=== PATIENT | male | born 2000 | race Caucasian/White ===

== ENCOUNTER 2023-04-08 08:02 | Outpatient (OUT) | payer OTHER, SELFPAY ==
--- NOTE | 2023-04-08 08:11 | XR_ITS ---
The [address] [address] Patient Name: CITLALY ARELLANO MRN: [id number] date: 2000 Sex: M Assigned Patient Location: RAD Current Patient Location: RAD Accession/Order Number: [id number] Exam Date: 04/08/2023 08:15 Report Date: 04/08/2023 08:44 At the request of: JOAQUÍN LEMUS Procedure: XR foreign body eye EXAM: XR foreign body eye HISTORY: Foreign Body Eye COMPARISON: 04/25/2016 TECHNIQUE: 2 views of the skull/orbits to evaluate for foreign body. FINDINGS: No radiodense/metallic foreign bodies within the [id number]-ee-oeis, specifically within the orbits. No appreciable acute displaced facial bone fracture. XR/XR foreign body eye IMPRESSION: 1. No radiodense/metallic foreign body within the [id number]. Electronically authenticated by: MANI ENNIS Date: 04/08/2023 08:44
--- NOTE | 2023-04-08 08:12 | MR_ITS ---
The [address] [address] Patient Name: CITLALY ARELLANO MRN: [id number] date: 2000 Sex: M Assigned Patient Location: [facility] Current Patient Location: [facility] Accession/Order Number: [id number] Exam Date: 04/08/2023 08:45 Report Date: 04/08/2023 12:25 At the request of: JOAQUÍN LEMUS Procedure: MR knee RT wo con EXAM: MR knee RT wo con HISTORY: Internal Derangement Of Right Knee M23.91 generalized right knee pain for one month. No known injury. COMPARISON: Comparison is made to right knee radiographs dated 06/26/2021. TECHNIQUE: Multiplanar, multisequence imaging of the right knee was performed without administration of intravenous or intra-articular gadolinium contrast. FINDINGS: There is no acute fracture or dislocation of the right knee. Bone marrow signal is normal. There is mild chondrosis of the right patella predominantly involving the median ridge and adjacent lateral patellar facet. There is minimal chondral thinning with tiny chondral ulcerations at the median ridge and there is mild chondral heterogeneity at the lateral patellar facet. The medial meniscus demonstrates normal morphology and signal without tear. The lateral meniscus demonstrates normal morphology and signal without tear. The anterior and posterior cruciate ligaments are intact. The extensor mechanism, including the quadriceps and patellar tendons, is normal. The medial collateral ligament and the lateral collateral ligament complex are normal. There is a physiologic volume of joint fluid within the knee. There is no posterior joint extension/popliteal cyst. MR/MR knee RT wo con IMPRESSION: 1. No acute displaced fracture or dislocation of the right knee. 2. 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 3. Intact right knee menisci, cruciate ligaments, and collateral ligaments. 4. Physiologic volume of right knee joint fluid without popliteal cyst. Electronically authenticated by: ALBA GODDARD Date: 04/08/2023 12:25
== END 2023-04-08 08:03 | disposition home or self-care (01) ==
LOC: RAD 08:06
PROVIDERS: PCP Family Medicine; Visit Provider Personal Emergency Response Attendant
DX: M23.91 Unspecified internal derangement of right knee (principal); M71.21 Synovial cyst of popliteal space [Baker], right knee
CPT/HCPCS: 70030; 73721

== ENCOUNTER 2024-02-14 09:52 | Outpatient (OUT) | payer OTHER, SELFPAY ==
--- NOTE | 2024-02-14 | XR_ITS ---
The [address] [address] Patient Name: CITLALY ARELLANO MRN: [id number] date: 2000 Sex: M Assigned Patient Location: Current Patient Location: Accession/Order Number: [id number] Exam Date: 02/14/2024 09:55 Report Date: 02/16/2024 04:44 At the request of: CORINA PISANO Procedure: XR lumbar spine min 4V EXAMINATION: XR lumbar spine min 4V HISTORY: LUMBAR SPINE PAIN COMPARISON: No relevant comparison available. FINDINGS: BONES: No significant spondylosis, scoliosis, fracture, or visible bony lesion. No listhesis or change in alignment during flexion and extension. DISC SPACES: Mild narrowing L5-S1. PARASPINOUS: Negative. No paraspinous abnormality is seen. OTHER: Negative. XR/XR lumbar spine min 4V IMPRESSION: 1. L5-S1 mild disc space narrowing/degenerative changes. Electronically authenticated by: VIVIEN ASHRAF Date: 02/16/2024 04:44
== END 2024-02-14 09:53 | disposition home or self-care (01) ==
LOC: EC 09:52
PROVIDERS: PCP Family Medicine; Visit Provider Orthopaedic Surgery Orthopaedic Surgery of the Spine
DX: M54.50 Low back pain, unspecified (principal); M51.369 Other intervertebral disc degeneration, lumbar region without mention of lumbar back pain or lower extremity pain
CPT/HCPCS: 72110

== ENCOUNTER 2024-02-19 06:40 | Outpatient (OUT) | payer OTHER, SELFPAY ==
--- NOTE | 2024-02-19 06:43 | XR_ITS ---
[address] [address] Patient Name: CITLALY ARELLANO MRN: [id number] date: 2000 Sex: M Assigned Patient Location: RAD Current Patient Location: [facility] Accession/Order Number: [id number] Exam Date: 02/19/2024 06:50 Report Date: 02/19/2024 07:02 At the request of: CORINA PISANO Procedure: XR foreign body eye SCOTT EXAMINATION: XR foreign body eye SCOTT HISTORY: Screening for MRI COMPARISON: 04/08/2023 FINDINGS: ORBITS: Negative for a metallic foreign body. OTHER: Negative. XR/XR foreign body eye SCOTT IMPRESSION: No metallic foreign body in the orbits Electronically authenticated by: ALKA GRANADOS Date: 02/19/2024 07:02
--- NOTE | 2024-02-19 06:43 | MR_ITS ---
[address] [address] Patient Name: CITLALY ARELLANO MRN: [id number] date: 2000 Sex: M Assigned Patient Location: RAD Current Patient Location: [facility] Accession/Order Number: [id number] Exam Date: 02/19/2024 07:05 Report Date: 02/19/2024 08:15 At the request of: CORINA PISANO Procedure: MR lumbar spine wo con EXAMINATION: MR lumbar spine wo con HISTORY: degeneration of intervertebral disc of lumbar region COMPARISON: No relevant comparison available. TECHNIQUE: A variety of imaging planes and parameters were utilized for visualization of suspected pathology. FINDINGS: For the purposes of numbering, sagittal T2 image # 8 extends from the T12 vertebral body superiorly to the S2 level inferiorly. PARASPINAL AREA: Normal with no visible mass. BONES: Normal alignment with no acute fracture or spondylolisthesis. No bone edema or Modic changes. CORD/CAUDA EQUINA: Normal caliber, contour, and signal intensity. DISC LEVELS: 12-L1: No significant disc/facet abnormality, spinal stenosis, or foraminal stenosis. L1-L2: No significant disc/facet abnormality, spinal stenosis, or foraminal stenosis. L2-L3: No significant disc/facet abnormality, spinal stenosis, or foraminal stenosis. L3-L4: Disc desiccation. Right paracentral disc herniation the protrusion type with annular tear extending 3.3 mm best seen on axial image 19 . No central or foraminal stenosis L4-L5: Moderate disc desiccation. Mild diffuse disc bulge. No central or foraminal stenosis L5-S1: Disc space narrowing. Moderate disc/osteophyte complex. No central or foraminal stenosis MR/MR lumbar spine wo con IMPRESSION: Discogenic changes of the lower lumbar spine most significant at L3-L4 where annular tear is observed with small disc herniation the protrusion type No central or foraminal stenosis Electronically authenticated by: ALKA GRANADOS Date: 02/19/2024 08:15
--- OUTSIDE RECORDS SUMMARY | 2024-02-19 06:43 | XMS_ITS | CCD ---
Author Organization [facility] Care Team Providers Care 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 Name Role Phone Hannah Massey Unavailable Julienne Fine Unavailable MD Evelin Haque Primary Care Provider MD Darnell Goss Attending Provider Darnell Goss Unavailable Darnell Goss Attending Unavailable Darnell Goss Admitting Unavailable Evelin Haque Primary Care Unavailable DARNELL GOSS Admitting Unavailable DARNELL GOSS Attending Unavailable SHABNAM, DR EVELIN Kim Primary Care Unavailable SHABNAM, DR EVELIN Kim Admitting Unavailable HAQUE, DR EVELIN Kim Attending Unavailable SHABNAM, DR EVELIN Kim Primary Care Unavailable SHABNAM, DR EVELIN Kim Consulting Unavailable JULIANO ROONEY Admitting Unavailable JULIANO ROONEY Attending Unavailable SHABNAM, DR EVELIN Kim Primary Care Unavailable ANDRIY, DR VIVIEN Maguire Consulting Unavailable JULIANO ROONEY Consulting Unavailable Evelin Haque Unavailable Mercedes Call Unavailable Evelin Haque MD Primary Care Provider JOAQUÍN LEMUS Attending Unavailable JOAQUÍN LEMUS Referring Unavailable JR. GERMAIN GEORGE C Attending Unavaila JOAQUÍN Beckham Attending Unavailable EVELIN HAQUE Primary Care Physician [phone] Pedrito Oneill Attending Unavailable Allergies Allergy Classification Reported Allergen(s) Allergy Type Date of Onset Reaction(s) Facility (13 sources) Corticosteroids Propensity to adverse reactions fatigue [place] Other (4 sources) Amoxicillin Drug Allergy 12-30-19 Unknown [facility] Other (4 sources) Pseudoephedrine Drug Allergy Unknown [facility] Other (4 sources) Allergies Reconciled Propensity to adverse reactions Unknown [facility] Other (4 sources) patient allergy list reviewed by nurse or physicia Propensity to adverse reactions 06-01-19 Comment:Done [place] Other (2 sources) Prednisone Propensity to adverse reactions 04-01-19 [facility] Healthcare (1 source) No Known Medication Allergies; Translations: [No Known Medication Allergies] Propensity to adverse reactions (disorder) [facility] Repository Medications Current Medications Medication Drug Class(es) Dates Sig (Normalized) Sig (Original) amoxicillin 500 mg oral capsule (1 source) Penicillin-class Antibacterial take 1 capsule by mouth every eight hours Amoxicillin 500 MG 1 capsule Orally every 8 hrs for 7 days Active azithromycin 250 mg oral tablet (7 sources) Macrolide Antimicrobial Start: 03-21-2022 Azithromycin 250 MG as directed Orally 2 tabs po today, then 1 tab daily x 4 more days for 5 Apr, Active betamethasone 0.5 mg/ml / clotrimazole 10 mg/ml topical cream (4 sources) Azole Antifungal, Corticosteroid Start: 03-09-2022 Clotrimazole-Betame thasone 1-0.05 % 1 application Externally Three time a day for 7 days Feb, Active cyclobenzaprine hydrochloride 10 mg oral tablet (2 sources) Muscle Relaxant Start: 01-27-2024 take 1 tablet by mouth three times daily Cyclobenzaprine 10 mg tablet Active 10 MG PO Three times daily January 27, 2024 12:00am Start: 01-22-2024 take 1 tablet by rosemary th three times daily as needed for muscle spasms cyclobenzaprine 10 mg Tab 10 mg = 1 tab(s), Oral, TID, PRN for spasm, # 30 tab(s), Refills(s) 0, Pharmacy: [facility]/pharmacy #[id number], 20.7, cm, 01/22/24 10:20:00 EST, Height/Length Dosing, 117, kg, 01/22/24 10:20:00 EST, Weight Dosing Start Date: 01/22/24 Status: Ordered ibuprofen 200 mg oral tablet (7 sources) Nonsteroidal Anti-inflammatory Drug take 1 tablet by mouth three times daily at mealtime as needed Ibuprofen 200 MG 1 tablet with food or milk as needed Orally Three times a day Active naproxen 500 mg oral tablet (2 sources) Nonsteroidal Anti-inflammatory Drug Start: 01-27-20 take 1 tablet by mouth twice daily Naproxen 500 mg tablet Active 500 MG PO Twice daily January 27, 2024 12:00am Start: 01-22-2024 take 1 tablet by rosemary th twice daily Naprosyn 500 mg Tab 500 mg = 1 tab(s), Oral, BID, # 20 tab(s), Refills(s) 0, Pharmacy: [facility]/pharmacy #[id number], 20.7, cm, 01/22/24 10:20:00 EST, Height/Length Dosing, 117, kg, 01/22/24 10:20:00 EST, Weight Dosing Start Date: 01/22/24 Status: Ordered Completed/Discontinued Medications Medication Drug Class(es) Dates Sig (Normalized) Sig (Original) amoxicillin 875 mg / clavulanate 125 mg oral tablet (3 sources) Penicillin-class Antibacterial Start: 09-26-2023 End: 01-27-2024 take 1 tablet by mouth every twelve hours Amoxicillin-Pot Clavulanate 875-125 mg tablet Discontinued 1 TAB PO Every 12 hours 14 7 September 25, 2023 11:00pm January 27, 2024 10:55am Start: 02-25-2023 take 1 tablet by rosemary th every twelve hours Amoxicillin-Pot Clavulanate 875-125 MG 1 tablet Orally every 12 hrs for 10 day(s) Feb, Active meloxicam 15 mg oral tablet (6 sources) Nonsteroidal Anti-inflammatory Drug Start: 08-20-2023 End: 09-26-2023 take 1 tablet by mouth once daily Meloxicam 15 mg tablet Discontinued 15 MG PO Daily August 19, 2023 11:00pm September 26, 2023 3:41pm Start: 03-25-2023 End: 04-22-2023 take 1 tablet by mouth once daily meloxicam (Mobic) 15 MG tablet TAKE 1 TABLET BY MOUTH EVERY DAY FOR 30 DAYS 0 03/25/2023 04/22/2023 Discontinued 1 ml methylPREDNISolone acetate 40 mg/ml injection (9 sources) Corticosteroid Start: 04-22-2023 End: 04-22-2023 methylPREDNISolone acetate (DEPO-Medrol) injection 40 mg Start: 11-18-2022 methylPREDNISo lone 4 MG as directed Orally for daily dose take half with breakfast, half with dinner for 6 days Nov, Active Start: 07-21-2021 Medrol (Talon) 4 MG as directed Orally for daily dose take half with breakfast half with dinner for 6 days July, Not-Taking Medrol (Talon) Act yimi predniSONE 20 mg oral tablet (12 sources) Start: 08-19-2023 End: 09-26-2023 take 2 tablets by mouth once daily Prednisone 20 mg tablet Discontinued 40 MG PO Daily 6 August 18, 2023 11:00pm September 26, 2023 3:35pm Start: 08-19-2023 End: 09-26-2023 take 40 mg by mouth once daily Prednisone Discontinued 40 MG PO Daily 6 August 19, 2023 12:00am September 26, 2023 4:35pm Start: 08-18-2023 End: 08-20-2023 take 1 tablet by mouth once daily Prednisone 20 mg tablet Discontinued 20 MG PO Daily 3 August 17, 2023 11:00pm August 20, 2023 7:16am allergy is fatigue per patient Start: 03-14-2022 take 2 tablets by mo [facility] once daily at mealtime predniSONE 20 MG 2 tablets with food or milk Orally Once a day for 5 days Mar, Active Start: 09-25-2021 take 1 tablet by rosemary every twelve hours predniSONE 20 MG 1 tablet Orally 2 times a day for 5 day(s) Sep, Active silver sulfADIAZINE 10 mg/ml topical cream (2 sources) Sulfonamide Antibacterial Start: 09-09-2021 Silvadene 1 % 1 application Externally Once a day for 7 days Sep, Not-Taking triamcinolone acetonide 40 mg/ml injectable suspension (20 sources) Corticosteroid Start: 05-04-2022 take 1 spray(s) nasal route once daily Nasacort Allergy 24HR 55 MCG/ACT 1 spray in each nostril Nasally Once a day for 30 days Apr, Active Start: 09-25-2021 Kenalog-40 Nov, 40 mg Start: 11-03-2020 KENALOG - 10 m g Oct, 40 mg take 1 spray(s) nasa l route once daily as needed Nasacort Allergy 24HR 55 MCG/ACT 1 spray in each nostril Nasally Once a day for 30 days PRN Active Problems Active Problems Problem Classification Problem Date Documented Date Episodic/Chronic Allergic reactions (12 sources) Allergic contact dermatitis due to plants, except food; Translations: [Allergic contact dermatitis due to plants, except food] Onset: 09-25-2021 Resolved: 09-25-2021 Episodic Anxiety disorders (4 sources) Anxiety state; Translations: [Anxiety state, unspecified] Onset: 07-07-2015 Chronic Attention-deficit, conduct, and disruptive behavior disorders (4 sources) Attention deficit hyperactivity disorder; Translations: [Attention-deficit hyperactivity disorder, unspecified type] Onset: 12-29-2012 Chronic Joint disorders and dislocations; trauma-related (2 sources) Derangement of right knee; Translations: [Unspecified internal derangement of right knee] 04-22-2023 Chronic Malaise and fatigue (8 sources) Other fatigue; Translations: [Fatigue] Onset: 06-20-2021 Episodic Nonspecific chest pain (4 sources) Chest pain; Translations: [Chest pain, unspecified] Episodic Open wounds of extremities (1 source) Puncture wound without foreign body, left foot, initial encounter; Translations: [Open wound of foot except toe(s) alone, without mention of complication] 09-26-2023 Episodic Other congenital anomalies (4 sources) Pectus carinatum; Translations: [Pectus carinatum] Onset: 05-25-2013 Chronic Other diseases of veins and lymphatics (13 sources) Compression of vein; Translations: [Compression of vein] Episodic Other ear and sense organ disorders (4 sources) Impacted cerumen; Translations: [Impacted cerumen, left ear] Episodic Other injuries and conditions due to external causes (1 source) Traumatic AND/OR non-traumatic injury; Translations: [Other injury of unspecified body region, initial encounter] Onset: 01-22-2024 Episodic Other nervous system disorders (13 sources) Chronic pain; Translations: [Other chronic pain] Chronic Other nervous system disorders (2 sources) Other chronic pain Onset: 11-27-2021 Resolved: 11-27-2021 Chronic Other non-traumatic joint disorders (4 sources) Hand joint pain; Translations: [Pain in joints of left hand] Episodic Other non-traumatic joint disorders (1 source) Pain in right knee Episodic Other nutritional; endocrine; and metabolic disorders (4 sources) Body mass index 25-29 - overweight; Translations: [Body mass index (BMI) 25.0-25.9, adult] Episodic Other screening for suspected conditions (not mental disorders or infectious disease) (4 sources) Thyroid function tests abnormal; Translations: [Abnormal results of thyroid function studies] Episodic Other skin disorders (1 source) Rash and other nonspecific skin eruption Episodic Other skin disorders (4 sources) Vesicular eczema of hands and/or feet; Translations: [Dyshidrosis [pompholyx]] Episodic Other upper respiratory infections (4 sources) Chronic sinusitis; Translations: [Chronic sinusitis, unspecified] Chronic Other upper respiratory infections (13 sources) Acute pharyngitis, unspecified; Translations: [Acute maxillary sinusitis, unspecified] Onset: 01-21-2015 Episodic Residual codes; unclassified (4 sources) Symptom: generalized; Translations: [Other general symptoms and signs] Episodic Residual codes; unclassified (4 sources) Body mass index 20-24 - normal; Translations: [Body mass index (BMI) 23.0-23.9, adult] Episodic Spondylosis; intervertebral disc disorders; other back problems (20 sources) Lumbosacral spondylosis; Translations: [Spondylosis without myelopathy or radiculopathy, lumbosacral region] Onset: 11-27-2021 Resolved: 11-27-2021 Chronic Spondylosis; intervertebral disc disorders; other back problems (11 sources) Radiculopathy, lumbar region; Translations: [Thoracic and lumbosacral neuritis] Onset: 07-22-2018 Resolved: 11-27-2021 Episodic Substance-related disorders (13 sources) Tobacco user; Translations: [Nicotine dependence, unspecified, uncomplicated] Chronic Unclassified (3 sources) LOW BACK PAIN, UNSPECIFIED; Translations: [LOW BACK PAIN, UNSPECIFIED] Onset: 11-29-2021 Past or Other Problems Problem Classification Problem Date Documented Da te Episodic/Chronic [place] (1 source) Corrosion of unspecified body region, unspecified degree Onset: 09-09-2021 Resolved: 09-09-2021 Episodic Cardiac dysrhythmias (4 sources) Palpitations; Translations: [Palpitations] Onset: 05-31-2014 Episodic Other connective tissue disease (4 sources) Pain in forearm; Translations: [Pain in joint, forearm] Onset: 01-09-2016 Episodic Other connective tissue disease (4 sources) Ganglion cyst; Translations: [Ganglion, unspecified site] Onset: 07-07-2015 Episodic Other non-traumatic joint disorders (4 sources) Arthralgia of the lower leg; Translations: [Pain in joint, lower leg] Onset: 04-05-2016 Episodic Sprains and strains (5 sources) Sprain of unspecified site of right knee, initial encounter; Translations: [Sprain of unspecified ligament of right ankle, initial encounter] Onset: 06-26-2021 Episodic Superficial injury; contusion (2 sources) Contusion of right knee, initial encounter; Translations: [Contusion of right ankle, initial encounter] Onset: 06-28-2021 Episodic Syncope (4 sources) Syncope and collapse; Translations: [Syncope and collapse] Onset: 07-28-2013 Episodic Unclassified (1 source) LOW BACK PAIN, UNSPECIFIED; Translations: [LOW BACK PAIN, UNSPECIFIED] Onset: 11-29-2021 Unclassified (4 sources) Need for prophylactic vaccination and inoculation against unspecified single bacterial disease; Translations: [Need for prophylactic vaccination and inoculation against unspecified single bacterial disease] Onset: 08-25-2015 Results Test Name Value Interpretation Reference Range Facility CT Spine Lumbar w/o Contrast on 01-22-2024 CT Spine Lumbar w/o Contrast Exam Date/Time: 01/22/2024 10:47 EST Reason for Exam: Radiculopathy Report IMPRESSION: MODERATE LEFT NEURAL FORAMINAL NARROWING AT L5-S1. OTHERWISE, ESSENTIALLY NEGATIVE LUMBAR SPINE CT. EXAM: CT Spine Lumbar w/o Contrast DATE: 01/22/2024 10:37 AM CLINICAL HISTORY: Radiculopathy. COMPARISON: None available. TECHNIQUE: Spiral imaging was obtained of the lumbar spine, with routine multiplanar reconstructions performed. All CT scans at this facility use dose modulation, iterative reconstruction, and/or weight based dosing when appropriate to reduce radiation dose to as low as reasonably achievable. FINDINGS: Moderate posterolateral endplate osteophytosis on the left at L5-S1 results in moderate left neural foraminal narrowing. Minimal posterolateral endplate osteophytosis on the right L3-4, with minimal lateral recess narrowing. There is no central spinal stenosis, other neural foraminal narrowing, sizable disc herniations, compression, fracture, significant disc space narrowing, subluxation, worrisome bone destruction, or other significant degenerative changes identified. The sacroiliac joints are unremarkable. Ordering Provider: Pedrito Oneill FINAL REPORT Dictated: 01/22/2024 11:12 am Amilcar Perdomo MD Signed (Electronic Signature): 01/22/2024 11:12 am Signed by: Amilcar Perdomo MD Transcribed by: SAMANTHA Technologist: MARYJANE Gurrola [facility] ED Clinical Summaryon 2023 ED Clinical Summary ED Clinical Summary [place] [id number] ED Clinical Summary Person Information Name: MOODY ARELLANO [facility] Age: 23 Years : 2000 Sex: Male Language: Cypriot PCP: EVELIN HAQUE MD Marital Status: Visit Id: Visit Reason: Back pain; BACK PAIN Speciality: Acuity: 4 Enc Type: Emergency Med Service: Emergency Arrival: 01/22/2024 10:17:26 Discharge: 01/22/2024 12:48:37 LOS: 000 02:31 Checkin: 01/22/2024 10:17:26 Checkout: 01/22/2024 12:48:37 Dispo Type: Home (Routine DC) EVENTS: Event Name Event Status Request Date/Time Start Date/Time Complete Date/Time Arrive Complete 01/22/2024 10:17:26 01/22/2024 10:17:26 01/22/2024 10:17:26 Document Home Meds Request 01/22/2024 10:17:26 Triage Complete 01/22/2024 10:17:26 01/22/2024 10:20:33 01/22/2024 10:20:33 Bed Assign Complete 01/22/2024 10:17:26 01/22/2024 10:17:26 01/22/2024 10:17:26 Dr Exam Complete 01/22/2024 10:17:26 01/22/2024 10:22:02 01/22/2024 10:22:02 RN Exam Complete 01/22/2024 10:17:26 01/22/2024 10:56:49 01/22/2024 10:56:49 Registration Complete 01/22/2024 10:21:41 01/22/2024 10:21:41 01/22/2024 10:21:41 Reg Complete Request 01/22/2024 10:21:41 Reg Bed Request Complete 01/22/2024 10:21:41 01/22/2024 10:21:41 01/22/2024 10:21:41 Registration Complete 01/22/2024 10:22:02 01/22/2024 10:27:17 01/22/2024 10:27:17 Dr Exam Complete 01/22/2024 10:22:04 01/22/2024 10:22:04 01/22/2024 10:22:04 Meds Admin Complete 01/22/2024 10:32:46 01/22/2024 10:49:36 CT Complete 01/22/2024 10:32:46 01/22/2024 10:37:25 01/22/2024 10:47:19 Meds Admin Complete 01/22/2024 11:29:12 01/22/2024 11:34:14 Discharge Complete 01/22/2024 12:36:40 01/22/2024 12:48:42 01/22/2024 12:48:42 Transfer Complete 01/22/2024 12:48:42 01/22/2024 12:48:42 01/22/2024 12:48:42 ADDRESS: [address] [place] [id number] PHYS DOC NOTES: MEDICAL INFORMATION: Prescriptions Given: New Medications [id number], [address] [place], [place] [id number], [phone] cyclobenzaprine (cyclobenzaprine 10 mg Tab) 1 Tablets By Mouth 3 times a day as needed for spasm. Refills: 0. naproxen (Naprosyn 500 mg Tab) 1 Tablets By Mouth 2 times a day. Refills: 0. PATIENT EDUCATION INFORMATION: Instructions: Muscle Strain; Acute Back Pain, Adult Follow up: With: Address: When: EVELIN HAQUE [facility] [place] [id number] [employer] (1) In 3 days 01/25/2024 Comments: Return to the emergency room if your pain gets worse, you develop bowel or bladder incontinence, numbness/tingling in the saddle/groin area, weakness in your leg or any new symptoms. DIAGNOSIS: 1:Lower back pain; 2:Muscle strain Normal [facility] ED Note-Physicianon 01-22-20 ED Note-Physician ED Note-Physician Basic Information Time Seen: Pedrito Oneill M.D. 01/22/2024 10:22 Chief Complaint stepped wrong, felt tweak in lower back. has had problems with same spot in past. no injury. 10mcg fentanyl per ems History of Present Illness The patient is a 23-year-old male who presented to the emergency room via EMS for lower back pain. The patient states at work he was pushing a brandi into the ground 4 feet down with his arms. The patient states he was bent down and when he came up he felt a sharp pain on his lower back. The patient states when he tried to stand the pain was shooting down to both legs. The patient denies any weakness in his leg. He states EMS gave him fentanyl. The pain is slightly better. The patient denies any bowel or bladder incontinence. He denies any numbness or tingling in the saddle/groin area. The patient denies any other associated symptoms. Review of Systems Additional ROS info: Except as noted in the above Review of Systems and in the History of Present Illness all other systems have been reviewed and are negative or noncontributory. Physical Exam Vitals & Measurements T: 37 ???C(Oral) HR: 62(Monitored) RR: 18 BP: 115/67 SpO2: 97% HT: 20.66 cm WT: 117 kg General: alert, no acute distress Skin: warm, dry, Head: no trauma, normocephalic Neck: Trachea midline, no tenderness, supple Eye: normal conjunctiva, sclera clear, Cardiovascular: regular rate and rhythm, Respiratory: Lungs CTA, respirations non labored, breath sounds equal, Gastrointestinal: soft, non distended, no tenderness, no guarding, Back: Mild tenderness throughout the lumbar sacral region including vertebral point tenderness on the lumbosacral region, limited ROM due to pain, patellar reflexes equal bilateral, straight leg raising negative bilateral Extremities: no deformity, no trauma Neurological: Alert and oriented, motor strength equal & normal bilaterally, sensation equal & normal bilaterally, speech normal, no focal neuro deficits Psychiatric: cooperative, affect appropriate for age, Medical Decision Making MEDICAL DECISION MAKING Number and Complexity of Problems Differential Diagnosis: [] [facility] Data External documents reviewed: [] My EKG interpretation: [] My CT interpretation: [] My X-ray interpretation: [] My Ultrasound interpretation: [] Decision rules/scores evaluated: [] Discussed with: [] Treatment and Disposition ED Course: The patient presented with lower back pain after pushing a brandi into the ground. More likely he sprained the muscles of lower back. The patient states when he stands up his pain shoots down to the legs. The patient has no signs or symptoms of cauda equina syndrome. He has generalized tenderness of the lumbar sacral region including the midline tenderness. CT of the lumbar spine shows osteophytosis at L5-S1 level causing moderate left neural foraminal narrowing. There is no central canal stenosis disc herniation compression fracture or anything else acute. The patient was given morphine and he continues to be in pain. He was given Dilaudid and his pain improved. The patient was able to ambulate and he feels comfortable going home. The patient does not want to file this injury is a Workmen's Comp. Will discharge patient home with prescription for Naprosyn and muscle relaxant. The patient refused narcotic medication. He will follow-up with his primary care. The patient was instructed to return to the emergency room if his pain gets worse, bowel or bladder incontinence, saddle paresthesia, weakness in his legs or any new symptoms. Shared decision making: [] Code status: [] Assessment/Plan 1. Lower back pain (M54.50: Low back pain, unspecified) 2. Muscle strain (T14.8XXA: Other injury of unspecified body region, initial encounter) Orders: cyclobenzaprine, 10 mg = 1 tab(s), Oral, TID, PRN for spasm, # 30 tab(s), Refills(s) 0, Pharmacy: [facility]/pharmacy #[id number], 20.7, cm, 01/22/24 10:20:00 EST, Height/Length Dosing, 117, kg, 01/22/24 10:20:00 EST, Weight Dosing HYDROmorphone, 0.5 mg = 0.5 mL, Injection, IV Push, Once, Stop date 01/22/24 11:29:00 EST, STAT, Start date 01/22/24 11:29:00 EST, 01/22/24 11:29:00 EST morphine, 4 mg = 1 mL, Injection, IV Push, Once, Stop date 01/22/24 10:31:00 EST, STAT, Start date 01/22/24 10:31:00 EST, 01/22/24 10:31:00 EST naproxen, 500 mg = 1 tab(s), Oral, BID, # 20 tab(s), Refills(s) 0, Pharmacy: [facility]/pharmacy #[id number], 20.7, cm, 01/22/24 10:20:00 EST, Height/Length Dosing, 117, kg, 01/22/24 10:20:00 EST, Weight Dosing orphenadrine, 60 mg = 2 mL, Injection, IV Push, Once, Stop date 01/22/24 10:31:00 EST, STAT, Start date 01/22/24 10:31:00 EST, 01/22/24 10:31:[address] Spine Lumbar w/o Contrast Medications Administered Given Dilaudid 1 mg/mL injectable solution, 0.5 mg, IV Push morphine 4 mg/mL Inj, 4 mg, IV Push orphenadrine 30 mg/mL Inj, 60 mg, IV Push Disposition Plan Patient Discharge Condition Stab (more content not included)... Normal [facility] Comment on above: Result Comment: Elec tronically Signed By: Pedrito Oneill M.D..sharif\Date and Time Signed: 01/22/24 12:41 EST ED Patient Summaryon 024 ED Patient Summary ED Patient Summary [place] [id number] Patient Discharge Instructions Person Information Name: MOODY ARELLANO Age: 23 Years Arrival Date: 01/22/2024 10:17:26 Discharge Diagnosis: 1:Lower back pain; 2:Muscle strain Primary Care Physician: EVELIN HAQUE MD Provider Information Primary Provider: Pderito Oneill M.D. Advanced Scalehouse Attendant:None The exam and treatment you received in the Emergency Department were for an urgent problem and are not intended as complete care. It is important that you follow up with a doctor, nurse practitioner, or physician???s photographer's assistant for ongoing care. If your symptoms become worse or you do not improve as expected and you are unable to reach your usual health care provider, you should return to the Emergency Department. We are available 24 hours a day. MOODY ARELLANO has been given the following list of patient education materials, prescriptions and follow-up instructions: Follow-up Instructions: With: Address: When: EVELIN HAQUE [address] [place], [place] [address] [facility] () In 3 days 01/25/2024 Comments: Return to the emergency room if your pain gets worse, you develop bowel or bladder incontinence, numbness/tingling in the saddle/groin area, weakness in your leg or any new symptoms. In the event that this physician does not participate in your insurance network, please consult with your insurance company to find a nearby participating provider. Patient Education Materials: Muscle Strain; Acute Back Pain, Adult A MESSAGE TO ALL PATIENTS REGARDING OPIOIDS PRESCRIPTION OPIOIDS: WHAT YOU NEED TO KNOW Prescription opioids can be used to help relieve [id number] pain and are often prescribed following a surgery or injury, or for certain health conditions. These medications can be an important part of the treatment but also come with serious risks. It is important to work with your healthcare provider to make sure you are getting the safest, most effective care. WHAT ARE THE RISKS AND SIDE EFFECTS OF OPIOID USE? Prescription opioids carry serious risks of addiction and overdose, especially with prolonged use. An opioid overdose, often marked by slowed breathing, can cause sudden . The use of prescription opioids can have a number of side effects as well, even when taken as directed: ??? Tolerance???meaning you might need to take more of the medication for the same pain relief ??? Physical dependence???meaning you have symptoms of withdrawal when a medication is stopped ??? Increased sensitivity to pain ??? Constipation ??? Nausea, vomiting, and dry mouth ??? Sleepiness and dizziness ??? Confusion ??? Depression ??? Low levels of testosterone that can result in lower sex drive, energy, and strength ??? Itching and sweating RISKS ARE GREATER WITH: ??? History of drug misuse, substance use disorder, or overdose ??? Mental health conditions (such as depression or anxiety) ??? Sleep apnea ??? Older age (65 years and older) ??? Avoid alcohol while taking prescription opioids. Also, unless specifically advised by your health care provider, medications to avoid include: ??? Benzodiazepines (such as Xanax or Valium) ??? Muscle relaxants (such as Soma or Flexeril) ??? Hypnotics (such as Ambien or Lunesta) ??? Other prescription opioids KNOW YOUR OPTIONS Talk to your health care provider about ways to manage your pain that don???t involve prescription opioids. Some of these options may actually work better and have fewer risks and side effects. Options may include: ??? Pain relievers such as acetaminophen, ibuprofen, and naproxen ??? Some medication that are also used for depression or seizures ??? Physical therapy and exercise ??? Cognitive behavioral therapy, a psychological, goal-directed approach, in which patients learn how to modify physical, behavioral, and emotional triggers of pain and stress. IF YOU ARE PRESCRIBED OPIOIDS FOR PAIN: ??? Never take opioids in greater amounts or more often than prescribed. ??? Follow up with your primary health care provider. o Work together to create a plan on how to manage your pain. o Talk about ways to help manage your pain that don???t involve prescription opioids. o Talk about any and all concerns and side effects. ??? Help prevent misuse and abuse o Never sell or share prescription opioids. o Never use another person???s prescription opioids. ??? Store prescription opioids in a secure place and out of reach of others (this may include visitors, children, friends, and family). ??? Safely dispose of unused prescription opioids: Find your community drug take-back program or your pharmacy mail-back program, or flush them down the toilet, following guidance from the Food and Drug Administration (www.fda.gov/Dr (more content not included)... Normal [facility] Pre-Arrival Noteon Pre-Arrival Note Pre-Arrival Note Pre-Arrival Summary Name: , amita Current Date: 01/22/2024 10:18:03 EST Gender: Male Date of : Age: 23 Pre-Arrival Type: EMS ETA: 01/22/2024 10:37:00 EST Primary Care Physician: Presenting Problem: back pain Pre-Arrival User: Maynor Charlton Referring Source: Location: [place] Completion Date/Time: 01/22/2024 10:07:00 [facility] Emergency Department Pre-Hospital Report Form Vital Signs: Pre-Hospital Report: Treatment in Route: Response to Treatment: Misc. Issues: Normal [facility] No Panel Informationon 04-22 Chela Infante 04/24/2023 11:56 AM L Inj/Asp: R knee on 04/22/2023 10:18 AM Indications: pain Details: 21 G needle, anterolateral approach Medications: 40 mg methylPREDNISolone acetate 40 MG/ML Outcome: tolerated well, no immediate complications E UTILIZING ASEPTIC TECHNIQUE PT GIVEN INJECTION IN RIGHT KNEE, NEUROVASC INTACT S/P INJ, TOLERATED WELL Procedure, treatment alternatives, risks and benefits explained, specific risks discussed. Consent was given by the patient. [facility] Likeeds [facility] Healthcar e XR lumbar spine AP/LAT/FLX/E XTon 11-27-2021 XR lumbar spine AP/LAT/FLX/EXT [facility] Main [place] [id number] XRay Report Signed Patient: Moody Arellano MR#: [id number] : 2000 Acct:[id number] Age/Sex: 21 / M ADM Date: 11/27/21 Loc: XD Room: Type: [facility] Attending Dr: Darnell Goss MD Copies to: Darnell Goss MD Ordering Provider: Darnell Goss MD Date of Service: 11/27/21 XR/XR lumbar spine AP/LAT/FLX/EXT: Lumbar radiculopathy LUMBAR SPINE WITH FLEXION-EXTENSION VIEWS - 4 views COMPARISON: 07/22/2018 CLINICAL DATA: Lumbar radiculopathy, left leg. No injury. Standing AP as well as lateral views in neutral, flexion and extension were obtained. There is subtle thoracolumbar levoscoliotic curvature. No fractures or displacement are noted. No instability is seen. There is no disproportionate disc space narrowing. There is no prominent hypertrophy. The SI joints are intact. There are no paraspinal soft tissue abnormalities. XR/XR lumbar spine AP/LAT/FLX/EXT IMPRESSION: SUBTLE SCOLIOTIC CURVATURE. NO ACUTE BONY FINDINGS. Impression dictated by: Sunita Lundy M.D.11/27/2021 9:03 PM Dictation Location: [place] [id number] Transcribed By: [facility] 11/27/212102 Dictated By: Sunita Lundy MD 11/27/212100 Signed By: 11/27/212102 [facility] CBC AUTO DIFFon 06-20-2021 BASO # 0.1 103/ul Normal 0.0-0.1 [facility] Comment on above: Performed By: #### C BC #### [facility] [address] [place] [address] Dr. Ana Ortez Basophils/100 WBC (Bld) 0.8 % Normal 0.2-2.0 [facility] Comment on above: Performed By: #### C BC #### [facility] [address] [place] [address] [address] Ana Ortez EO # 0.2 103/ul Normal 0.0-0.7 [facility] Comment on above: Performed By: #### C BC #### [facility] [address] [place] [address] [address] Ana Ortez Eosinophils/100 WBC (Bld) 2.9 % Normal 0.9-7.0 [facility] Comment on above: Performed By: #### C BC #### [facility] [address] [place] [address] Dr. Ana Ortez Erythrocyte distribution width (RBC) [Ratio] 12.5 % Normal 11.0-15.0 [facility] Comment on above: Performed By: #### C BC #### [facility] [address] [place] [address] Dr. Ana Ortez Hematocrit (Bld) [Volume fraction] 43.2 % Normal 42.0-54.0 [facility] Comment on above: Performed By: #### C BC #### [facility] [address] [place] [address] Dr. Ana Ortez Hemoglobin (Bld) [Mass/Vol] 14.4 g/dL Normal 14.0-18.0 [facility] Comment on above: Performed By: #### C BC #### [facility] [address] [place] [address] Dr. Ana Ortez IG # 0.01 10e3/ul Normal 0.00-0.03 [facility] Comment on above: Performed By: #### C BC #### [facility] [address] [place] [address] Dr. Ana Ortez IG % 0.2 % Normal 0.0-0.5 [facility] Comment on above: Performed By: #### C BC #### [facility] [address] [place] [address] Dr. Ana Ortez LYMPH # 2.8 103/ul Normal 1.2-3.8 [facility] Comment on above: Performed By: #### C BC #### [facility] [address] [place] [address] Dr. Ana Ortez Lymphocytes/100 WBC (Bld) 46.5 % Normal 20.5-60.0 [facility] Comment on above: Performed By: #### C BC #### [facility] [address] [place] [address] Dr. Ana Ortez MANUAL DIFF REQ NO Normal [facility] Comment on above: Performed By: #### C BC #### [facility] [address] [place] [address] Dr. Ana Ortez MCH (RBC) [Entitic mass] 31.1 pg Normal 25.9-34.0 [facility] Comment on above: Performed By: #### C BC #### [facility] [address] [place] [address] Dr. Ana Ortez MCHC (RBC) [Mass/Vol] 33.3 g/dL Normal 29.9-35.2 [facility] Comment on above: Performed By: #### C BC #### [facility] [address] [place] [address] Dr. Ana Ortez MCV (RBC) [Entitic vol] 93.3 fL Normal 80.0-94.0 [facility] Comment on above: Performed By: #### C BC #### [facility] [address] [place] [address] Dr. Ana Ortez MONO # 0.4 103/ul Normal 0.3-0.8 [facility] Comment on above: Performed By: #### C BC #### [facility] [address] [place] [address] Dr. Ana Ortez Monocytes/100 WBC (Bld) 6.6 % Normal 1.7-12.0 [facility] Comment on above: Performed By: #### C BC #### [facility] [address] [place] [address] Dr. Ana Ortez NEUT # 2.6 103/ul Normal 1.4-6.5 [facility] Comment on above: Performed By: #### C BC #### [facility] [address] [place] [address] Dr. Ana Ortez Neutrophils/100 WBC (Bld) 43.0 % Normal 43.0-75.0 [facility] Comment on above: Performed By: #### C BC #### [facility] [address] [place] [address] Dr. Ana Ortez Platelet mean volume (Bld) [Entitic vol] 10.1 fL Normal 9.5-13.5 [facility] Comment on above: Performed By: #### C BC #### [facility] [address] [address] [address] Ana Ortez PLT 268 103/ul Normal 150-450 [facility] Comment on above: Performed By: #### C BC #### [facility] [address] [place] [address] [address] Ana Ortez RBC 4.63 106/ul Critically low 4.70-6.10 [facility] Comment on above: Performed By: #### C BC #### [facility] [address] [place] [address] [address] Ana Ortez WBC 5.9 103/ul Normal 4.0-11.0 [facility] Comment on above: Performed By: #### C BC #### [facility] [address] [place] [address] Dr. Ana Ortez FREE T4on 06-20-2021 Free T4 [Mass/Vol] 0.73 ng/dL Critically low 0.78-2.19 [facility] Comment on above: Performed By: #### F T4 #### [facility] [address] [place] [address] Dr. Ana Ortez PROF CHEM 8 (BAS METB)on Anion gap [Moles/Vol] 12.6 mmol/L Normal [facility] Comment on above: Performed By: #### B MP, TSH #### [facility] [address] [place] [address] Dr. Ana Ortez Calcium [Mass/Vol] 8.8 mg/dL Normal 8.5-10.1 [facility] Comment on above: Performed By: #### B MP, TSH #### [facility] [address] [place] [address] Dr. Ana Ortez Chloride [Moles/Vol] 105 mmol/L Normal 98-107 [facility] Comment on above: Performed By: #### B MP, TSH #### [facility] [address] [place] [address] Dr. Ana Ortez CO2 [Moles/Vol] 27.4 mmol/L Normal 22.0-30.0 [facility] Comment on above: Performed By: #### B MP, TSH #### [facility] [address] [place] [address] [address] Ana Ortez Creatinine [Mass/Vol] 0.99 mg/dL Normal 0.66-1.25 [facility] Comment on above: Performed By: #### B MP, TSH #### [facility] [address] [place] [address] [address] Ana Ortez EGFR-AF NEPALESE >60 Normal >=60 [facility] Comment on above: Performed By: #### B MP, TSH #### [facility] [address] [place] [address] [address] Ana Ortez EGFR-NON AF NEPALESE >60 Normal >=60 [facility] Comment on above: Performed By: #### B MP, TSH #### [facility] [address] [place] [address] [address] Ana Ortez Glucose [Mass/Vol] 100 mg/dL Normal 74-106 [facility] Comment on above: Performed By: #### B MP, TSH #### [facility] [address] [place] [address] [address] Ana Ortez Potassium [Moles/Vol] 4.0 mmol/L Normal 3.4-5.0 [facility] Comment on above: Performed By: #### B MP, TSH #### [facility] [address] [place] [address] [address] Ana Ortez Sodium [Moles/Vol] 141 mmol/L Normal 137-145 [facility] Comment on above: Performed By: #### B MP, TSH #### [facility] [address] [place] [address] [address] Ana Ortez Urea nitrogen [Mass/Vol] 12.0 mg/dL Normal 7.0-18.0 [facility] Comment on above: Performed By: #### B MP, TSH #### [facility] [address] [place] [address] [address] Ana Ortez Urea nitrogen/Creatinin e [Mass ratio] 12.1 mg/mg Normal [facility] Comment on above: Performed By: #### B MP, TSH #### [facility] [address] [place], [place] [address] Dr. Ana Ortez TSHon 06-20-2021 TSH 1.361 uIU/mL Normal 0.470-4.680 [facility] Comment on above: Performed By: #### B MP, TSH #### [facility] [address] [place] [address] [address] Ana Ortez TSH RANGE SEE BELOW Normal [facility] Comment on above: Result Comment: <0.3 4 UIU/ml HYPERTHYROID 0.34-5.60 UIU/ml EUTHYROID >5.60 UIU/ml HYPOTHYROID Performed By: #### B MP, TSH #### [facility] [address] [place] [address] [address] Ana Ortez Vital Signs Date Time Vital Sign Value Performing Clinician Facility 01-27-2024 11:02-0500 Body mass index (BMI) [Ratio] 29.1 kg/m2 [facility] 01-27-2024 11:02-0500 Diastolic blood pressure 79 mm[Hg] [facility] 01-27-2024 11:02-0500 Heart rate 94 /min [facility] 01-27-2024 11:02-0500 Systolic blood pressure 118 mm[Hg] [facility] 01-27-2024 09:44-0500 Body height 198.12 cm [facility] 01-27-2024 09:44-0500 Body weight 114.3 kg [facility] 01-22-2024 12:47-0500 Diastolic blood pressure 61 mm[Hg] [facility] 01-22-2024 12:47-0500 Heart rate 72 /min [facility] 01-22-2024 12:47-0500 Mean blood pressure 77 mm[Hg] [facility] 01-22-2024 12:47-0500 Respiratory rate 16 /min [facility] 01-22-2024 12:47-0500 SaO2% (BldA) [Mass fraction] 97 % [facility] 01-22-2024 12:47-0500 Systolic blood pressure 110 mm[Hg] [facility] 01-22-2024 12:00-0500 Diastolic blood pressure 67 mm[Hg] [facility] 01-22-2024 12:00-0500 Heart rate 62 /min [facility] 01-22-2024 12:00-0500 Mean blood pressure 83 mm[Hg] [facility] 01-22-2024 12:00-0500 Systolic blood pressure 115 mm[Hg] [facility] 01-22-2024 11:30-0500 Heart rate 59 /min [facility] 01-22-2024 11:30-0500 SaO2% (BldA) [Mass fraction] 95 % [facility] 01-22-2024 10:58-0500 Diastolic blood pressure 74 mm[Hg] [facility] 01-22-2024 10:58-0500 Mean blood pressure 89 mm[Hg] [facility] 01-22-2024 10:58-0500 Respiratory rate 18 /min [facility] 01-22-2024 10:58-0500 Systolic blood pressure 118 mm[Hg] [facility] 01-22-2024 10:18-0500 Body temperature 98.6 [degF] [facility] 01-22-2024 10:18-0500 Heart rate 76 /min [facility] 09-26-2023 16:38-0400 Body height 198.12 cm [facility] 09-26-2023 16:38-0400 Body mass index (BMI) [Ratio] 27.7 kg/m2 [facility] 09-26-2023 16:38-0400 Body temperature 98.9 [degF] [facility] 09-26-2023 16:38-0400 Body weight 108.86 kg [facility] 09-26-2023 16:38-0400 Diastolic blood pressure 65 mm[Hg] [facility] 09-26-2023 16:38-0400 Heart rate 90 /min [facility] 09-26-2023 16:38-0400 Respiratory rate 18 /min [facility] 09-26-2023 16:38-0400 SaO2% (BldA) [Mass fraction] 98 % [facility] 09-26-2023 16:38-0400 Systolic blood pressure 113 mm[Hg] [facility] 08-20-2023 08:17-0400 Body height 198.12 cm [facility] 08-20-2023 08:17-0400 Body mass index (BMI) [Ratio] 27.7 kg/m2 [facility] 08-20-2023 08:17-0400 Body weight 108.86 kg [facility] 08-20-2023 08:17-0400 Diastolic blood pressure 75 mm[Hg] [facility] 08-20-2023 08:17-0400 Heart rate 79 /min [facility] 08-20-2023 08:17-0400 Systolic blood pressure 113 mm[Hg] [facility] 08-18-2023 10:29-0400 Body height 198.12 cm [facility] 08-18-2023 10:29-0400 Body mass index (BMI) [Ratio] 27.6 kg/m2 [facility] 08-18-2023 10:29-0400 Body temperature 98.8 [degF] [facility] 08-18-2023 10:29-0400 Body weight 108.57 kg [facility] 08-18-2023 10:29-0400 Heart rate 64 /min [facility] 08-18-2023 10:29-0400 Respiratory rate 18 /min [facility] 08-18-2023 10:29-0400 SaO2% (BldA) [Mass fraction] 98 % [facility] 03-25-2023 14:45-0500 Body height 198.12 cm Evelin Haque Other [facility] Other 03-25-2023 14:45-0500 Body mass index (BMI) [Ratio] 26.92 kg/m2 Evelin Haque Other [facility] Other 03-25-2023 14:45-0500 Body weight 105.69 kg Evelin Haque Other [facility] Other 03-25-2023 14:45-0500 Diastolic blood pressure 65 mm[Hg] Evelin Haque Other [facility] Other 03-25-2023 14:45-0500 SaO2% (BldA) [Mass fraction] 97 % Evelin Haque Other [facility] Other 03-25-2023 14:45-0500 Systolic blood pressure 91 mm[Hg] Evelin Haque Other [facility] Other 02-25-2023 11:15-0500 Body height 198.12 cm Evelin Haque Other [facility] Other 02-25-2023 11:15-0500 Body mass index (BMI) [Ratio] 26.99 kg/m2 Evelin Haque Other [facility] Other 02-25-2023 11:15-0500 Body temperature 97.7 [degF] Evelin Haque Other [facility] Other 02-25-2023 11:15-0500 Body weight 105.96 kg Evelin Haque Other [facility] Other 02-25-2023 11:15-0500 Diastolic blood pressure 63 mm[Hg] Evelin Haque Other [facility] Other 02-25-2023 11:15-0500 Systolic blood pressure 98 mm[Hg] Evelin Haque Other [facility] Other 11-18-2022 09:20-0400 Body height 198.12 cm Mercedes Call Other [facility] Other 11-18-2022 09:20-0400 Body mass index (BMI) [Ratio] 27.18 kg/m2 Mercedes Call Other [facility] Other 11-18-2022 09:20-0400 Body temperature 98 [degF] Mercedes Call Other [facility] Other 11-18-2022 09:20-0400 Body weight 106.69 kg Mercedes Call Other [facility] Other 11-18-2022 09:20-0400 Diastolic blood pressure 62 mm[Hg] Mercedes Call Other [facility] Other 11-18-2022 09:20-0400 Respiratory rate 18 /min Mercedes Call Other [facility] Other 11-18-2022 09:20-0400 SaO2% (BldA) [Mass fraction] 92 % Mercedes Call Other [facility] Other 11-18-2022 09:20-0400 Systolic blood pressure 113 mm[Hg] Mercedes Call Other [facility] Other 08-20-2022 11:45-0400 Body height 198.12 cm Evelin Haque Other [facility] Other 08-20-2022 11:45-0400 Body mass index (BMI) [Ratio] 27.27 kg/m2 Evelin Haque Other [facility] Other 08-20-2022 11:45-0400 Body temperature 98 [degF] Evelin Haque Other [facility] Other 08-20-2022 11:45-0400 Body weight 107.05 kg Evelin Haque Other [facility] Other 08-20-2022 11:45-0400 Diastolic blood pressure 68 mm[Hg] Evelin Haque Other [facility] Other 08-20-2022 11:45-0400 Systolic blood pressure 104 mm[Hg] Evelin Haque Other [facility] Other 03-09-2022 17:10-0500 Body height 198.12 cm Mercedes Call Other [facility] Other 03-09-2022 17:10-0500 Body mass index (BMI) [Ratio] 26.58 kg/m2 Mercedes Call Other [facility] Other 03-09-2022 17:10-0500 Body temperature 98.1 [degF] Mercedes Call Other [facility] Other 03-09-2022 17:10-0500 Body weight 104.33 kg Mercedes Call Other [facility] Other 03-09-2022 17:10-0500 Diastolic blood pressure 66 mm[Hg] Mercedes Call Other [facility] Other 03-09-2022 17:10-0500 Respiratory rate 18 /min Mercedes Call Other [facility] Other 03-09-2022 17:10-0500 SaO2% (BldA) [Mass fraction] 98 % Mercedes Call Other [facility] Other 03-09-2022 17:10-0500 Systolic blood pressure 117 mm[Hg] Mercedes Call Other [facility] Other 01-01-2022 17:30-0400 Body height 198.12 cm Darnellginna Goss Other [facility] Other 01-01-2022 17:30-0400 Diastolic blood pressure 60 mm[Hg] Darnell Goss Other [facility] Other 01-01-2022 17:30-0400 SaO2% (BldA) [Mass fraction] 99 % Darnell Wolfgang Other [facility] Other 01-01-2022 17:30-0400 Systolic blood pressure 110 mm[Hg] Darnell Goss Other [facility] Other 11-27-2021 16:00-0400 Body height 198.12 cm Darnell Goss Other [facility] Other 11-27-2021 16:00-0400 Body mass index (BMI) [Ratio] 25.65 kg/m2 Darnell Goss Other [facility] Other 11-27-2021 16:00-0400 Body weight 100.7 kg Darnell Goss Other [facility] Other 11-27-2021 16:00-0400 Diastolic blood pressure 60 mm[Hg] Darnell Goss Other [facility] Other 11-27-2021 16:00-0400 SaO2% (BldA) [Mass fraction] 97 % Darnell Goss Other [facility] Other 11-27-2021 16:00-0400 Systolic blood pressure 110 mm[Hg] Darnell Goss Other [facility] Other 09-25-2021 10:20-0400 Body height 198.12 cm Julienne Fernandesmond Other [facility] Other 09-25-2021 10:20-0400 Body mass index (BMI) [Ratio] 23.11 kg/m2 Julienne Fernandesmond Other [facility] Other 09-25-2021 10:20-0400 Body temperature 98.2 [degF] Julienne Fernandesmond Other [facility] Other 09-25-2021 10:20-0400 Body weight 90.72 kg Julienne Fine Other [facility] Other 09-25-2021 10:20-0400 Diastolic blood pressure 60 mm[Hg] Julienne Fernandesmond Other [facility] Other 09-25-2021 10:20-0400 Respiratory rate 18 /min Julienne Fernandesmond Other [facility] Other 09-25-2021 10:20-0400 SaO2% (BldA) [Mass fraction] 99 % Julienne Rody Other [facility] Other 09-25-2021 10:20-0400 Systolic blood pressure 121 mm[Hg] Julienne Fine Other [facility] Other 09-09-2021 14:00-0400 Body height 198.12 cm Hannah Carrilloault Other [facility] Other 09-09-2021 14:00-0400 Body mass index (BMI) [Ratio] 23.11 kg/m2 Hannah Carrilloault Other [facility] Other 09-09-2021 14:00-0400 Body temperature 98.8 [degF] Hannah Bryson Other [facility] Other 09-09-2021 14:00-0400 Body weight 90.72 kg Hannah Bryson Other [facility] Other 09-09-2021 14:00-0400 Diastolic blood pressure 80 mm[Hg] Hannah Bryson Other [facility] Other 09-09-2021 14:00-0400 Respiratory rate 18 /min Hannah Bryson Other [facility] Other 09-09-2021 14:00-0400 SaO2% (BldA) [Mass fraction] 98 % Hannah Bryson Other [facility] Other 09-09-2021 14:00-0400 Systolic blood pressure 130 mm[Hg] Hannah Bryson Other [facility] Other Encounters Encounter Date Encounter Type Care Provider Facility Start: 01-27-2024 End: 01-27-2024 [facility] Work Phone: Start: 01-27-2024 End: 01-27-2024 Patient encounter procedure [facility] Work Phone: Start: 01-23-2024 Non-patient / Non-visit [facility] Work Phone: Start: 01-22-2024 End: 01-22-2024 Emergency department patient visit Pedrito Oneill [facility] Start: 09-26-2023 End: 09-26-2023 ambulatory [facility] Work Phone: Start: 09-26-2023 End: 09-26-2023 Patient encounter procedure [facility] Work Phone: Start: 09-09-2023 End: 09-09-2023 ambulatory JOAQUÍN LEMUS Not Available Start: 08-20-2023 End: 08-20-2023 ambulatory [facility] Work Phone: Start: 08-20-2023 End: 08-20-2023 Patient encounter procedure [facility] Work Phone: Start: 08-18-2023 End: 08-18-2023 ambulatory [facility] Work Phone: Start: 08-18-2023 End: 08-18-2023 Patient encounter procedure [facility] Work Phone: Start: 04-22-2023 End: 04-22-2023 Office outpatient visit 25 minutes Jr. Yony Germain DO Work Phone: [facility] Comment on above: Internal derangement of right knee (Primary Dx) Start: 04-22-2023 End: 04-22-2023 ambulatory YONY BOUDREAUX Not Available Start: 04-01-2023 End: 04-01-2023 ambulatory JOAQUÍN LEMUS Not Available Start: 03-25-2023 End: 03-25-2023 ambulatory Evelin Haque Other [facility] Other Start: 03-25-2023 Office outpatient vi sit 15 minutes Evelin Haque [facility] Start: 02-25-2023 End: 02-25-2023 ambulatory Evelin Haque Other [facility] Other Start: 02-25-2023 Office outpatient vi sit 15 minutes Evelin Haque [facility] Start: 11-19-2022 End: 11-19-2022 ambulatory Evelin Haque Other [facility] Start: 11-19-2022 Telephone encounter Evelin Haque [facility] Start: 11-18-2022 End: 11-18-2022 ambulatory Mercedes Call Other [facility] Start: 11-18-2022 Office outpatient vi sit 15 minutes Mercedes Call [facility] Start: 08-20-2022 End: 08-20-2022 ambulatory Evelin Haque Other [facility] Start: 08-20-2022 Office outpatient vi sit 15 minutes Evelin Haque [facility] Start: 05-04-2022 (Televisit) Televisit Evelin Haque F [facility] Start: 05-04-2022 End: 05-04-2022 ambulatory Evelin Hauqe Other [facility] Start: 03-14-2022 End: 03-14-2022 ambulatory Evelin Haque Other [facility] Start: 03-14-2022 Office outpatient vi sit 15 minutes Evelin Haque [facility] Start: 03-09-2022 End: 03-09-2022 ambulatory Mercedes Call Other [facility] Start: 03-09-2022 Office outpatient vi sit 15 minutes Mercedes Call [facility] Start: 01-01-2022 End: 01-01-2022 ambulatory Darnell Goss Other [facility] Start: 01-01-2022 Office outpatient vi sit 25 minutes Darnell Goss [facility] Start: 11-29-2021 End: 12-21-2021 ambulatory DARNELL GOSS Facility:[facility] Start: 11-27-2021 End: 11-27-2021 Patient encounter procedure MD Evelin Haque Work Phone: [facility] Start: 11-27-2021 End: 11-27-2021 ambulatory Darnell Goss [facility] Start: 11-27-2021 Office outpatient vi sit 25 minutes Darnell Goss [facility] Start: 09-25-2021 End: 09-25-2021 ambulatory Julienne Rody Other [facility] Start: 09-25-2021 Office outpatient vi sit 15 minutes Julienne Rody [facility] Start: 09-09-2021 End: 09-09-2021 ambulatory Hannah Massey Other [facility] Start: 09-09-2021 Office outpatient vi sit 15 minutes Hannah Massey [facility] Start: 06-26-2021 End: 06-27-2021 ambulatory JULIANO ROONEY Facility:[facility] Start: 06-20-2021 End: 06-21-[address] EVELIN HAQUE Facility:[facility] Procedures Date Procedure Procedure Detail Performing Clinician Start: 04-22-2023 Arthrocentesis aspir &/inj major jt/bursa w/o us Jr. Yony Germain DO Work Phone: Start: 11-27-2021 X-ray of lumbar spin e, four views MD Evelin Haque Work Phone: Plan of Treatment Date Care Activity Detail Author Start: 05-27-2023 End: 05-27-2023 Patient encounter procedure 05/27/2023 8:00 AM EDT Office Visit [facility] [address] [place] [address] Jr. Yony Germain DO [address] [place] [address] [facility] Immunizations Immunization Date Immunization Notes Care Provider Fa cility 09-26-2023 tetanus toxoid, redu jed diphtheria toxoid, and acellular pertussis vaccine, adsorbed [facility] 08-25-2015 meningococcal oligosaccharide (groups A, C, Y and W-135) diphtheria toxoid conjugate vaccine (MCV4O) Mercedes Call Other [facility] NEGATED: Highlighted row has not occurred!11-19-2019 tetanus toxoid, reduced diphtheria toxoid, and acellular pertussis vaccine, [facility] Comment on above: Result Comment: pt r efused after education by this nurse Payers Date Payer Category Payer Worker's Compensation [id number] 2022 Unknown [employer] [id number] 2022-Present [address] [place] [address] [id number] 2022 Unknown [id number] 2021 Self-pay [id number] 1998 Unknown [id number] 3 1998 Unknown [id number] 3 1998 Unknown [id number] 3 1998 Unknown [id number] 59 1998 Unknown [id number] 59 1998 Unknown [id number] 59 1998 Unknown [id number] 59 1998 Unknown [id number] 7 1959 Unknown [id number] 1959 Unknown [id number] Unknown [id number] 1 Social History Date Type Detail Facility Unknown if ever smoked [facility] Start: 04-22-2023 Sex Assigned At F [facility] Start: 2000 Sex Assigned At Male F [facility] Start: 04-01-2023 Tobacco smoking status VAIS Smokes tobacco daily [facility] Start: 04-01-2023 Tobacco use and exposure Smokeless tobacco non-user [facility] Start: 04-22-2023 Alcohol intake Current drinke r of alcohol (finding) [facility] Start: 04-22-2023 History of Social function [facility] Start: 04-01-2023 Tobacco Comment Pt vapes [facility] Start: 04-01-2023 Alcohol Comment 12drinks/week [facility] Start: 2000 Sex Assigned At Not on file [facility] Start: 08-18-2023 End: 08-20-2023 Tobacco smoking status VAIS Ex-smoker (finding) [facility] Tobacco Oral, Vaping [facility] Tobacco smoking status No Smoking Status Entered [facility] Start: 01-27-2024 Sex Male (finding) [facility] Functional Status Date Assessment Result Facility 01-22-2024 Functional Status N/A Erasto Farhan [facility] Clinical Notes 06-26-2021 to 01-22-2024 Note Date & Type Note Facility 01-22-2024 Hospital Discharg e instructions Patient Education 01/22/2024 12:48:43 Muscle Strain Muscle Strain A muscle strain is an injury that occurs when a muscle is stretched beyond its normal length. Usually, a small number of muscle fibers are torn when this happens. There are three types of muscle strains. First-degree strains have the least amount of muscle fiber tearing and the least amount of pain. Second-degree and third-degree strains have more tearing and pain. Usually, recovery from muscle strain takes 1 2 weeks. Complete healing normally takes 5 6 weeks. What are the causes? This condition is caused when a sudden, violent force is placed on a muscle and stretches it too far. This may occur with a fall, while lifting, or during sports. What increases the risk? This condition is more likely to develop in athletes and people who are physically active. What are the signs or symptoms? Symptoms of this condition include: Pain. Tenderness. Bruising. Swelling. Trouble using the muscle. How is this diagnosed? This condition is diagnosed based on a physical exam and your medical history. Tests may also be done, including an X-ray, ultrasound, or MRI. How is this treated? This condition is initially treated with GARZA therapy. This therapy involves: Protecting the muscle from being injured again. Resting the injured muscle. Icing the injured muscle. Applying pressure (compression) to the injured muscle. This may be done with a splint or elastic bandage. Raising (elevating) the injured muscle. Your health care provider may also recommend medicine for pain. Follow these instructions at home: If you have a removable splint: Wear the splint as told by your health care provider. Remove it only as told by your health care provider. Check the skin around the splint every day. Tell your health care provider about any concerns. Loosen the splint if your fingers or toes tingle, become numb, or turn cold and blue. Keep the splint clean. If the splint is not waterproof: ?Do not let it get wet. ?Cover it with a watertight covering when you take a bath or a shower. Managing pain, stiffness, and swelling If directed, put ice on the injured area. To do this: ?If you have a removable splint, remove it as told by your health care provider. ?Put ice in a plastic bag. ?Place a towel between your skin and the bag. ?Leave the ice on for 20 minutes, 2 3 times a day. ?Remove the ice if your skin turns bright red. This is very important. If you cannot feel pain, heat, or cold, you have a greater risk of damage to the area. Move your fingers or toes often to reduce stiffness and swelling. Raise (elevate) the injured area above the level of your heart while you are sitting or lying down. Wear an elastic bandage as told by your health care provider. Make sure that it is not too tight. General instructions Take vxlk-jdi-zmmdgoy and prescription medicines only as told by your health care provider. Treatment may include muscle relaxants or medicines for pain and inflammation that are taken by mouth or applied to the skin. Restrict your activity and rest the injured muscle as told by your health care provider. Gentle movements may be allowed. If physical therapy was prescribed, do exercises as told by your health care provider. Do not put pressure on any part of the splint until it is fully hardened. This may take several hours. Do not use any products that contain nicotine or tobacco. These products include cigarettes, chewing tobacco, and vaping devices, such as e-cigarettes. If you need help quitting, ask your health care provider. Ask your health care provider when it is safe to drive if you have a splint. Keep all follow-up visits. This is important. How is this prevented? Warm up before exercising. This helps to prevent future muscle strains. Contact a health care provider if: You have more pain or swelling in the injured area. Get help right away if: You have numbness or tingling in the injured area. You lose a lot of strength in the injured area. Summary A muscle strain is an injury that occurs when a muscle is stretched beyond its normal length. This condition is caused when a sudden, violent force is placed on a muscle and stretches it too far. This condition is initially treated with GARZA therapy, which involves protecting, resting, icing, compressing, and elevating. Gentle movements may be allowed. If physical therapy was prescribed, do exercises as told by your health care provider. This information is not intended to replace advice given to you by your health care provider. Make sure you discuss any questions you have with your health care provider. Document Revised: 05/15/2021 Document Reviewed: 05/15/2021 [employer] Patient Education 2023 [employer]. 01/22/2024 12:48:43 Acute Back Pain, Adult Acute Back Pain, Adult Acute back pain is sudden and usually short-lived. It is often caused by an injury to the muscles and tissues in the back. The injury may result from: A muscle, tendon, or ligament getting overstretched or torn. Ligaments are tissues that connect bones to each other. Lifting something improperly can cause a back strain. Wear and tear (degeneration) of the spinal disks. Spinal disks are circular tissue that provide cushioning between the bones of the spine (vertebrae). Twisting motions, such as while playing sports or doing yard work. A hit to the back. Arthritis. You may have a physical exam, lab tests, and imaging tests to find the cause of your pain. Acute back pain usually goes away with rest and home care. Follow these instructions at home: Managing pain, stiffness, and swelling Take obfu-yoy-nfcughm and prescription medicines only as told by your health care provider. Treatment may include medicines for pain and inflammation that are taken by mouth or applied to the skin, or muscle relaxants. Your health care provider may recommend applying ice during the first 24 48 hours after your pain starts. To do this: ?Put ice in a plastic bag. ?Place a towel between your skin and the bag. ?Leave the ice on for 20 minutes, 2 3 times a day. ?Remove the ice if your skin turns bright red. This is very important. If you cannot feel pain, heat, or cold, you have a greater risk of damage to the area. If directed, apply heat to the affected area as often as told by your health care provider. Use the heat source that your health care provider recommends, such as a moist heat pack or a heating pad. ?Place a towel between your skin and the heat source. ?Leave the heat on for 20 30 minutes. ?Remove the heat if your skin turns bright red. This is especially important if you are unable to feel pain, heat, or cold. You have a greater risk of getting burned. Activity Do not stay in bed. Staying in bed for more than 1 2 days can delay your recovery. Sit up and stand up straight. Avoid leaning forward when you sit or hunching over when you stand. ?If you work at a desk, sit close to it so you do not need to lean over. Keep your chin tucked in. Keep your neck drawn back, and keep your elbows bent at a 90-degree angle (right angle). ?Sit high and close to the steering wheel when you drive. Add lower back (lumbar) support to your car seat, if needed. Take short walks on even surfaces as soon as you are able. Try to increase the length of time you walk each day. Do not sit, drive, or standpipe tender one place for more than 30 minutes at a time. Sitting or standing for long periods of time can put stress on your back. Do not drive or use heavy machinery while taking prescription pain medicine. Use proper lifting techniques. When you bend and lift, use positions that put less stress on your back: ?Bend your knees. ?Keep the load close to your body. ?Avoid twisting. Exercise regularly as told by your health care provider. Exercising helps your back heal faster and helps prevent back injuries by keeping muscles strong and flexible. Work with a physical therapist to make a safe exercise program, as recommended by your health care provider. Do any exercises as told by your physical therapist. Lifestyle Maintain a healthy weight. Extra weight puts stress on your back and makes it difficult to have good posture. Avoid activities or situations that make you feel anxious or stressed. Stress and anxiety increase muscle tension and can make back pain worse. Learn ways to manage anxiety and stress, such as through exercise. General instructions Sleep on a firm mattress in a comfortable position. Try lying on your side with your knees slightly bent. If you lie on your back, put a pillow under your knees. Keep your head and neck in a straight line with your spine (neutral position) when using electronic equipment like smartphones or pads. To do this: ?Raise your smartphone or pad to look at it instead of bending your head or neck to look down. ?Put the smartphone or pad at the level of your face while looking at the screen. Follow your treatment plan as told by your health care provider. This may include: ?Cognitive or behavioral therapy. ?Acupuncture or massage therapy. ?Meditation or yoga. Contact a health care provider if: You have pain that is not relieved with rest or medicine. You have increasing pain going down into your legs or buttocks. Your pain does not improve after 2 weeks. You have pain at night. You lose weight without trying. You have a fever or chills. You develop nausea or vomiting. You develop abdominal pain. Get help right away if: You develop new bowel or bladder control problems. You have unusual weakness or numbness in your arms or legs. You feel faint. These symptoms may represent a serious problem that is an emergency. Do not wait to see if the symptoms will go away. Get medical help right away. Call your local emergency services (911 in the [place] Do not drive yourself to the hospital. Summary Acute back pain is sudden and usually short-lived. Use proper lifting techniques. When you bend and lift, use positions that put less stress on your back. Take xxsx-snk-gghhduw and prescription medicines only as told by your health care provider, and apply heat or ice as told. This information is not intended to replace advice given to you by your health care provider. Make sure you discuss any questions you have with your health care provider. Document Revised: 05/19/2021 Document Reviewed: 05/19/2021 [employer] Patient Education 2023 [employer]. Follow Up Care 01/22/2024 10:18:02 With:EVELIN HAQUE Address: [address] [place] [address] [facility] (1) When:01/25/2024 12:36:11 Comments:Return to the emergency room if your pain gets worse, you develop bowel or bladder incontinence, numbness/tingling in the saddle/groin area, weakness in your leg or any new symptoms. [facility] 01-22-2024 Evaluation + Plan note Extrac joss from: Title:ED Note Author:Pedrito Oneill M.D. te:01/22/24 1. Lower back pain (M54.50: Low back pain, unspecified) 2. Muscle strain (T14.8XXA: Other injury of unspecified body region, initial encounter) Orders: cyclobenzaprine, 10 mg = 1 tab(s), Oral, TID, PRN for spasm, # 30 tab(s), Refills(s) 0, Pharmacy: [facility]/pharmacy #[id number], 20.7, cm, 01/22/24 10:20:00 EST, Height/Length Dosing, 117, kg, 01/22/24 10:20:00 EST, Weight Dosing HYDROmorphone, 0.5 mg = 0.5 mL, Injection, IV Push, Once, Stop date 01/22/24 11:29:00 EST, STAT, Start date 01/22/24 11:29:00 EST, 01/22/24 11:29:00 EST morphine, 4 mg = 1 mL, Injection, IV Push, Once, Stop date 01/22/24 10:31:00 EST, STAT, Start date 01/22/24 10:31:00 EST, 01/22/24 10:31:00 EST naproxen, 500 mg = 1 tab(s), Oral, BID, # 20 tab(s), Refills(s) 0, [id number], 20.7, cm, 01/22/24 10:20:00 EST, Height/Length Dosing, 117, kg, 01/22/24 10:20:00 EST, Weight Dosing orphenadrine, 60 mg = 2 mL, Injection, IV Push, Once, Stop date 01/22/24 10:31:00 EST, STAT, Start date 01/22/24 10:31:00 EST, 01/22/24 10:31:[address] Spine Lumbar w/o Contrast [facility] 11-13-2024 NoteED Patient Education Note Orthopedics Muscle Strain A muscle strain is an injury that occurs when a muscle is stretched beyond its normal length. Usually, a small number of muscle fibers are torn when this happens. There are three types of muscle strains. First-degree strains have the least amount of muscle fiber tearing and the least amount of pain. Second-degree and third-degree strains have more tearing and pain. Usually, recovery from muscle strain takes 1?2 weeks. Complete healing normally takes 5?6 weeks. What are the causes? This condition is caused when a sudden, violent force is placed on a muscle and stretches it too far. This may occur with a fall, while lifting, or during sports. What increases the risk? This condition is more likely to develop in athletes and people who are physically active. What are the signs or symptoms? Symptoms of this condition include: ??? Pain. ??? Tenderness. ??? Bruising. ??? Swelling. ??? Trouble using the muscle. How is this diagnosed? This condition is diagnosed based on a physical exam and your medical history. Tests may also be done, including an X-ray, ultrasound, or MRI. How is this treated? This condition is initially treated with GARZA therapy. This therapy involves: ??? Protecting the muscle from being injured again. ??? Resting the injured muscle. ??? Icing the injured muscle. ??? Applying pressure (compression) to the injured muscle. This may be done with a splint or elastic bandage. ??? Raising (elevating) the injured muscle. Your health care provider may also recommend medicine for pain. Follow these instructions at home: If you have a removable splint: ??? Wear the splint as told by your health care provider. Remove it only as told by your health care provider. ??? Check the skin around the splint every day. Tell your health care provider about any concerns. ??? Loosen the splint if your fingers or toes tingle, become numb, or turn cold and blue. ??? Keep the splint clean. ??? If the splint is not waterproof: ? Do not let it get wet. ? Cover it with a watertight covering when you take a bath or a shower. Managing pain, stiffness, and swelling ??? If directed, put ice on the injured area. To do this: ? If you have a removable splint, remove it as told by your health care provider. ? Put ice in a plastic bag. ? Place a towel between your skin and the bag. ? Leave the ice on for 20 minutes, 2?3 times a day. ? Remove the ice if your skin turns bright red. This is very important. If you cannot feel pain, heat, or cold, you have a greater risk of damage to the area. ??? Move your fingers or toes often to reduce stiffness and swelling. ??? Raise (elevate) the injured area above the level of your heart while you are sitting or lying down. ??? Wear an elastic bandage as told by your health care provider. Make sure that it is not too tight. General instructions ??? Take upio-ouj-tsckkio and prescription medicines only as told by your health care provider. Treatment may include muscle relaxants or medicines for pain and inflammation that are taken by mouth or applied to the skin. ??? Restrict your activity and rest the injured muscle as told by your health care provider. Gentlemovements may be allowed. ??? If physical therapy was prescribed, do exercises as told by your health care provider. ??? Do not put pressure on any part of the splint until it is fully hardened. This may take severalhours. ??? Do not use any products that contain nicotine or tobacco. These products include cigarettes, chewing tobacco, and vaping devices, such as e-cigarettes. If you need help quitting, ask your health care provider. ??? Ask your health care provider when it is safe to drive if you have a splint. ??? Keep all follow-up visits. This is important. How is this prevented? Warm up before exercising. This helps to prevent future muscle strains. Contact a health care provider if: ??? You have more pain or swelling in the injured area. Get help right away if: ??? You have numbness or tingling in the injured area. ??? You lose a lot of strength in the injured area. Summary ??? A muscle strain is an injury that occurs when a muscle is stretched beyond its normal length. ??? This condition is caused when a sudden, violent force is placed on a muscle and stretches it too far. ??? This condition is initially treated with GARZA therapy, which involves protecting, resting, icing, compressing, and elevating. ??? Gentle movements may be allowed. If physical therapy was prescribed, do exercises as told by your health care provider. This information is not intended to replace advice given to you by your health care provider. Make sure you discuss any questions you have with your health care provider. Document Revised: 05/15/2021 Document Reviewed: 05/15/2021 [employer] Patient Education ? 2023 [employer] Acute Back Pain, A (more content not included)...[facility]02-12-2024 History of Present illness Narrative* Jr. Yony Germain, DO - 04/22/2023 9:15 AM ESTAssociated Order(s): L Inj/Asp: R knee Post-Procedure Diagnose(s): Internal derangement of right knee Images from the original note were not included. HISTORY OF PRESENT ILLNESS: EST PT Moody Arellano is an 22 y.o. @ male. (EST PT ; LAST APPT W/ IDA) RECHECK (R) KNEE ; HERE FOR MRI RESULTS 04/08/23 @ [facility] XRAYS, 04/01/23 IN CHANGE / EPIC MRI, 04/08/23 @ [facility] NO MDP / PREDNISONE NO CORTISONE INJ NO PHYSICAL THERAPY NO PAIN MGMT CONTINUES TO HAVE INTERMITTENT DISCOMFORT - WORSE WITH ACTIVITY / PIVOTING ; PAIN IS ANTERIOR, BELOW THE KNEECAP. NOTES GOOD ROM - SOME POPPING ; SOME INSTABILITY / WEAKNESS. DENIES ANY SWELLING. NO PAIN MEDS. NO HEP. 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 Inspection Leg length disparity: no discrepancy Right Erythema: none Effusion: mild Edema: none Ecchymosis: none Deformity: none Alignment: normal Palpation Right Increased warmth: none Masses: none Tenderness: present Lateral joint line: moderate Medial joint line: moderate Patella: moderate Range of Motion Right Right knee range of motion is normal. Active extension: 0 Active flexion: 120 Range of motion additional comments: + PAIN ON TERMINAL FLEXION AND EXTENSION Strength Right Right knee strength is normal. Extension: 5/5. Extension is affected by pain. Flexion: 5/5. Flexion is affected by pain. Instability Right Instability signs: none - stable Varus stress grade: normal Valgus stress grade: normal Anterior drawer: normal Medial Brando test: positive Lateral Brando test: positive Neurovascular Right Right knee neurovascular exam is normal. Pulses - PT: normal Posterior tibial: 2+ Capillary refill: warm and well-perfused Special Signs Right Right knee special signs are normal. Patellar apprehension: none Vitals: There is no height or weight on file to calculate BMI. Tobacco Use: High Risk (04/22/2023) Patient History Smoking Tobacco Use: Every Day Smokeless Tobacco Use: Never Passive Exposure: Not on file Alcohol Use: Not on file IMAGING: No orders of the defined types were placed in this encounter. ASSESSMENT: ICD-10-CM 1. Internal derangement of right knee M23.91 PLAN: We have answered all the patients questions and explained the patients condition, decision making and plan including the risks and benefits associated with said plan in layman''s terms in a language the patient could understand easily. If patient''s symptoms significantly worsen and they cannot get a hold of us or their family physician, we have recommended that the patient proceed to the nearest emergency department (room). Dr. Germain obtained history and examined the patient, I am acting as scribe for Dr. Germain/philomena, PLAN: We have reviewed prior (R) knee xrays and discussed (R) knee MRI results with patient at bedside : results read as negative ; I feel in a degree of medical certainty that he has a lateral meniscus tear and possible medial meniscus tear as well as chondromalacia patella. Patient would like to try a cortisone injection prior to entertaining the thought of a (R) knee scope. We have obtained verbal consent and injected 1mL of depo medrol in his right knee under sterile technique. We have discussed his HEP and restrictions and will see him back in 4 weeks to reassess his right knee, if exam warrants we may recommend surgical intervention. L Inj/Asp: R knee on 04/22/2023 10:18 AM Indications: pain Details: 21 G needle, anterolateral approach Medications: 40 mg methylPREDNISolone acetate 40 MG/ML Outcome: tolerated well, no immediate complications E UTILIZING ASEPTIC TECHNIQUE PT GIVEN INJECTION IN RIGHT KNEE, NEUROVASC INTACT S/P INJ, TOLERATEDWELL Procedure, treatment alternatives, risks and benefits explained, specific risks discussed. Consent was given by the patient. Ayanna Garrett MA documented in this encounterSt. Luke's [id number] Evaluation note* Encounter Date Diagnosis Assessment Notes Treatment Notes Treatment Clinical Notes Mar, Acute pain of right knee (ICD-10 - M25.561) [facility] Other 12-18-2023 Evaluation note* Encounter Date Diagnosis Assessment Notes Treatment Notes Treatment Clinical Notes Feb, Acute non-recurrent maxillary sinusitis (ICD-10 - J01.00) Sinus infections can be triggered by a secondary infection from a viral URI or even seasonal allergies. Take medications as directed. Use saline nasal spray prior to presciption nasal spray. Take medications as directed, and complete all doses of medication even if you start to feel better. Patient advised to follow up with PCP if symptoms persist or worsen. Patient verbalized understanding and agreement with treatment plan. [facility] Other 09-10-2023 Evaluation note* Encounter Date Diagnosis Assessment Notes Treatment Notes Treatment Clinical Notes Nov, Poison morro dermatitis (ICD-10 - L23.7) Discussed diagnosis with patient. Kenalog injection provided in office. Will send in rx of steroid to take as directed. Advised to take medications with food and plenty of water, complete entire course even if feeling better. Patient instructed not to scratch or pick at rash. May use hydrocortisone cream or calamine lotion for topical relief. Patient may also use cool wet compress for itching relief. Keep rash open to air. Wash all clothing/items that could have come into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
== END 2024-02-19 06:41 | disposition home or self-care (01) ==
LOC: RAD 06:41
PROVIDERS: PCP Family Medicine; Visit Provider Orthopaedic Surgery Orthopaedic Surgery of the Spine
DX: M51.362 Other intervertebral disc degeneration, lumbar region with discogenic back pain and lower extremity pain (principal); M48.062 Spinal stenosis, lumbar region with neurogenic claudication; M54.16 Radiculopathy, lumbar region
CPT/HCPCS: 70030; 72148

== ENCOUNTER 2024-03-01 17:46 | Emergency (ER) | payer OTHER, SELFPAY ==
--- OUTSIDE RECORDS SUMMARY | 2024-03-01 17:51 | XMS_ITS | CCD ---
Author Organization [facility] Care Team Providers Care Refractory Products Supervisor Name Role Phone Hannah Massey Unavailable [...] EVELIN Kim Primary Care Unavailable SHABNAM, DR EEVLIN Kim Consulting Unavailable JULIANO ROONEY Admitting Unavailable JULIANO ROONEY Attending Unavailable SHABNAM, DR EVELIN Kim Primary Care Unavailable ANDRIY, DR VIVIEN Maguire Consulting Unavailable JULIANO ROONEY Consulting Unavailable Evelin Haque Unavailable Mercedes Call Unavailable Evelin Haque MD Primary Care Provider [phone] JOAQUÍN LEMUS Attending Unavailable JOAQUÍN LEMUS Referring Unavailable JR. GERMAIN GEORGE C Attending Unavaila JOAQUÍN Beckham Attending Unavailable EVELIN HAQUE Primary Care Physician [phone] Pedrito Oneill Attending Unavailable Allergies Allergy Classification Reported Allergen(s) Allergy Type Date of Onset Reaction(s) Facility (13 sources) Corticosteroids Propensity to adverse reactions fatigue [facility] Other (4 sources) Amoxicillin Drug Allergy 12-30-19 Unknown [facility] Other (4 sources) Pseudoephedrine Drug Allergy Unknown [facility] Other (4 sources) Allergies Reconciled Propensity to adverse reactions Unknown [facility] Other (4 sources) patient allergy list reviewed by nurse or physicia Propensity to adverse reactions 06-01-19 Comment:Done [facility] Other (2 sources) Prednisone Propensity to adverse reactions 04-01-19 [facility] Healthcare (1 source) No Known Medication Allergies; Translations: [No Known Medication Allergies] Propensity to adverse reactions (disorder) [facility] Repository Medications Current Medications Medication Drug Class(es) [...] spasm, # 30 tab(s), Refills(s) 0, Pharmacy: [facility]/pharmacy #[id number], 20.7, cm, 01/22/24 10:20:00 EST, Height/Length [...] BID, # 20 tab(s), Refills(s) 0, Pharmacy: [facility]/pharmacy #[id number], 20.7, cm, 01/22/24 10:20:00 EST, Height/Length [...] Start: 03-14-2022 take 2 tablets by [facility] once daily at mealtime predniSONE 20 [...] MD Transcribed by: SAMANTHA Technologist: MARYJANE Gurrola [facility] ED Clinical Summaryon 2023 ED Clinical Summary ED Clinical Summary [place] [id number] ED Clinical Summary Person Information Name: MOODY ARELLANO [facility] Age: 23 Years : 2000 Sex: Male Language: Tajik PCP: EVELIN HAQUE MD Marital Status: Visit [...] 01/22/2024 12:48:42 01/22/2024 12:48:42 01/22/2024 12:48:42 ADDRESS: [address] [place] [phone] PHYS DOC NOTES: MEDICAL INFORMATION: Prescriptions Given: New Medications [id number], [address], [place] [id number], [phone] cyclobenzaprine (cyclobenzaprine 10 mg Tab) 1 Tablets By Mouth 3 times a day as needed for spasm. Refills: 0. naproxen (Naprosyn 500 mg Tab) 1 Tablets By Mouth 2 times a day. Refills: 0. PATIENT EDUCATION INFORMATION: Instructions: Muscle Strain; Acute Back Pain, Adult Follow up: With: Address: When: EVELIN HAQUE [facility] [place] [id number] [place] (1) In 3 days 01/25/2024 Comments: Return to the emergency room if your pain gets worse, you develop bowel or bladder incontinence, numbness/tingling in the saddle/groin area, weakness in your leg or any new symptoms. DIAGNOSIS: 1:Lower back pain; 2:Muscle strain Normal [facility] ED Note-Physicianon 01-22-20 ED Note-Physician ED Note-Physician [...] and Complexity of Problems Differential Diagnosis: [] [facility] Data External documents reviewed: [] My [...] spasm, # 30 tab(s), Refills(s) 0, Pharmacy: [facility]/pharmacy #[id number], 20.7, cm, 01/22/24 10:20:00 EST, Height/Length [...] BID, # 20 tab(s), Refills(s) 0, Pharmacy: [facility]/pharmacy #[id number], 20.7, cm, 01/22/24 10:20:00 EST, Height/Length [...] Condition Stab (more content not included)... Normal [facility] Comment on above: Result Comment: Elec tronically Signed By: Pedrito Oneill M.D..sharif\Date and Time Signed: 01/22/24 12:41 EST ED Patient Summaryon 024 ED Patient Summary ED Patient Summary [place] [id number] Patient Discharge Instructions Person Information Name: MOODY ARELLANO Age: 23 Years Arrival Date: 01/22/2024 10:17:26 Discharge Diagnosis: 1:Lower back pain; 2:Muscle strain Primary Care Physician: EVELIN HAQUE MD Provider Information Primary Provider: Pedrito Oneill M.D. Advanced Inventory Auditor:None The exam and treatment you received in the Emergency Department were for an urgent problem and are not intended as complete care. It is important that you follow up with a doctor, nurse practitioner, or physician???s payroll human resources assistant for ongoing care. If your symptoms [...] Follow-up Instructions: With: Address: When: EVELIN HAQUE [address] [place], [place] [id number] [facility] () In 3 days 01/25/2024 Comments: Return [...] opioids can be used to help relieve [id number]-[id number] pain and are often prescribed following a [...] Administration (www.fda.gov/Dr (more content not included)... Normal [facility] Pre-Arrival Noteon Pre-Arrival Note Pre-Arrival Note Pre-Arrival Summary Name: , amita Current Date: 01/22/2024 10:18:03 EST Gender: Male Date of : Age: 23 Pre-Arrival Type: EMS ETA: 01/22/2024 10:37:00 EST Primary Care Physician: Presenting Problem: back pain Pre-Arrival User: Maynor Charlton Referring Source: Location: [place] Completion Date/Time: 01/22/2024 10:07:00 [facility] Emergency Department Pre-Hospital Report Form Vital Signs: Pre-Hospital Report: Treatment in Route: Response to Treatment: Misc. Issues: Normal [facility] No Panel Informationon 04-22 Chela Infante 04/24/2023 [...] discussed. Consent was given by the patient. [facility] Sinch [facility] Healthcar e XR lumbar spine AP/LAT/FLX/E XTon 11-27-2021 XR lumbar spine AP/LAT/FLX/EXT [facility] Main [place] [id number] XRay Report Signed Patient: Moody Arellano MR#: [id number] : 2000 Acct:[id number] Age/Sex: 21 / M ADM Date: 11/27/21 Loc: XD Room: Type: [facility] Attending Dr: Darnell Goss MD Copies to: [...] Sunita Lundy M.D.11/27/2021 9:03 PM Dictation Location: [place] [address] Transcribed By: [facility] 11/27/212102 Dictated By: Sunita Lundy MD 11/27/212100 Signed By: 11/27/212102 [facility] CBC AUTO DIFFon 06-20-2021 BASO # 0.1 103/ul Normal 0.0-0.1 [facility] Comment on above: Performed By: #### C BC #### [facility] [address] [place] [address] Dr. Ana Ortez Basophils/100 WBC (Bld) 0.8 % Normal 0.2-2.0 [facility] Comment on above: Performed By: #### C BC #### [facility] [address] [place] [address] [address] Ana Ortez EO # 0.2 103/ul Normal 0.0-0.7 [facility] Comment on above: Performed By: #### C BC #### [facility] [address] [place] [address] [address] Ana Ortez Eosinophils/100 WBC (Bld) 2.9 % Normal 0.9-7.0 [facility] Comment on above: Performed By: #### C BC #### [facility] [address] [place] [address] Dr. Ana Ortez Erythrocyte distribution width (RBC) [Ratio] 12.5 % Normal 11.0-15.0 [facility] Comment on above: Performed By: #### C BC #### [facility] [address] [place] [address] Dr. Ana Ortez Hematocrit (Bld) [Volume fraction] 43.2 % Normal 42.0-54.0 [facility] Comment on above: Performed By: #### C BC #### [facility] [address] [place] [address] Dr. Ana Ortez Hemoglobin (Bld) [Mass/Vol] 14.4 g/dL Normal 14.0-18.0 [facility] Comment on above: Performed By: #### C BC #### [facility] [address] [place] [address] Dr. Ana Ortez IG # 0.01 10e3/ul Normal 0.00-0.03 [facility] Comment on above: Performed By: #### C BC #### [facility] [address] [place] [address] Dr. Ana Ortez IG % 0.2 % Normal 0.0-0.5 [facility] Comment on above: Performed By: #### C BC #### [facility] [address] [place] [address] Dr. Ana Ortez LYMPH # 2.8 103/ul Normal 1.2-3.8 [facility] Comment on above: Performed By: #### C BC #### [facility] [address] [place] [address] Dr. Ana Ortez Lymphocytes/100 WBC (Bld) 46.5 % Normal 20.5-60.0 [facility] Comment on above: Performed By: #### C BC #### [facility] [address] [place] [address] Dr. Ana Ortez MANUAL DIFF REQ NO Normal [facility] Comment on above: Performed By: #### C BC #### [facility] [address] [place] [address] Dr. Ana Ortez MCH (RBC) [Entitic mass] 31.1 pg Normal 25.9-34.0 [facility] Comment on above: Performed By: #### C BC #### [facility] [address] [place] [address] Dr. Ana Ortez MCHC (RBC) [Mass/Vol] 33.3 g/dL Normal 29.9-35.2 [facility] Comment on above: Performed By: #### C BC #### [facility] [address] [place] [address] Dr. Ana Ortez MCV (RBC) [Entitic vol] 93.3 fL Normal 80.0-94.0 [facility] Comment on above: Performed By: #### C BC #### [facility] [address] [place] [address] Dr. Ana Ortez MONO # 0.4 103/ul Normal 0.3-0.8 [facility] Comment on above: Performed By: #### C BC #### [facility] [address] [place] [address] Dr. Ana Ortez Monocytes/100 WBC (Bld) 6.6 % Normal 1.7-12.0 [facility] Comment on above: Performed By: #### C BC #### [facility] [address] [place] [address] Dr. Ana Ortez NEUT # 2.6 103/ul Normal 1.4-6.5 [facility] Comment on above: Performed By: #### C BC #### [facility] [address] [place] [address] Dr. Ana Ortez Neutrophils/100 WBC (Bld) 43.0 % Normal 43.0-75.0 [facility] Comment on above: Performed By: #### C BC #### [facility] [address] [place] [address] Dr. Ana Ortez Platelet mean volume (Bld) [Entitic vol] 10.1 fL Normal 9.5-13.5 [facility] Comment on above: Performed By: #### C BC #### [facility] [address] [place] [address] [address] Ana Ortez PLT 268 103/ul Normal 150-450 [facility] Comment on above: Performed By: #### C BC #### [facility] [address] [place] [address] [address] Ana Ortez RBC 4.63 106/ul Critically low 4.70-6.10 [facility] Comment on above: Performed By: #### C BC #### [facility] [address] [place] [address] [address] Ana Ortez WBC 5.9 103/ul Normal 4.0-11.0 [facility] Comment on above: Performed By: #### C BC #### [facility] [address] [place] [address] Dr. Ana Ortez FREE T4on 06-20-2021 Free T4 [Mass/Vol] 0.73 ng/dL Critically low 0.78-2.19 [facility] Comment on above: Performed By: #### F T4 #### [facility] [address] [place] [address] Dr. Ana Ortez PROF CHEM 8 (BAS METB)on Anion gap [Moles/Vol] 12.6 mmol/L Normal [facility] Comment on above: Performed By: #### B MP, TSH #### [facility] [address] [place] [address] Dr. Ana Ortez Calcium [Mass/Vol] 8.8 mg/dL Normal 8.5-10.1 [facility] Comment on above: Performed By: #### B MP, TSH #### [facility] [address] [place] [address] Dr. Ana Ortez Chloride [Moles/Vol] 105 mmol/L Normal 98-107 [facility] Comment on above: Performed By: #### B MP, TSH #### [facility] [address] [place] [address] Dr. Ana Ortez CO2 [Moles/Vol] 27.4 mmol/L Normal 22.0-30.0 [facility] Comment on above: Performed By: #### B MP, TSH #### [facility] [address] [place] [address] [address] Ana Ortez Creatinine [Mass/Vol] 0.99 mg/dL Normal 0.66-1.25 [facility] Comment on above: Performed By: #### B MP, TSH #### [facility] [address] [place] [address] [address] Ana Ortez EGFR-AF CUBAN >60 Normal >=60 [facility] Comment on above: Performed By: #### B MP, TSH #### [facility] [address] [place] [address] [address] Ana Ortez EGFR-NON AF CUBAN >60 Normal >=60 [facility] Comment on above: Performed By: #### B MP, TSH #### [facility] [address] [place] [address] [address] Ana Ortez Glucose [Mass/Vol] 100 mg/dL Normal 74-106 [facility] Comment on above: Performed By: #### B MP, TSH #### [facility] [address] [place] [address] [address] Ana Ortez Potassium [Moles/Vol] 4.0 mmol/L Normal 3.4-5.0 [facility] Comment on above: Performed By: #### B MP, TSH #### [facility] [address] [place] [address] [address] Ana Ortez Sodium [Moles/Vol] 141 mmol/L Normal 137-145 [facility] Comment on above: Performed By: #### B MP, TSH #### [facility] [address] [place] [address] [address] Ana Ortez Urea nitrogen [Mass/Vol] 12.0 mg/dL Normal 7.0-18.0 [facility] Comment on above: Performed By: #### B MP, TSH #### [facility] [address] [place] [address] [address] Ana Ortez Urea nitrogen/Creatinin e [Mass ratio] 12.1 mg/mg Normal [facility] Comment on above: Performed By: #### B MP, TSH #### [facility] [address] [place], [place] [address] Dr. Ana Ortez TSHon 06-20-2021 TSH 1.361 uIU/mL Normal 0.470-4.680 [facility] Comment on above: Performed By: #### B MP, TSH #### [facility] [address] [place] [address] [address] Ana Ortez TSH RANGE SEE BELOW Normal [facility] Comment on above: Result Comment: <0.3 4 UIU/ml HYPERTHYROID 0.34-5.60 UIU/ml EUTHYROID >5.60 UIU/ml HYPOTHYROID Performed By: #### B MP, TSH #### [facility] [address] [place] [address] [address] Ana Ortez Vital Signs Date Time Vital Sign Value Performing Clinician Facility 01-27-2024 11:02-0500 Body mass index (BMI) [Ratio] 29.1 kg/m2 [facility] 01-27-2024 11:02-0500 Diastolic blood pressure 79 mm[Hg] [facility] 01-27-2024 11:02-0500 Heart rate 94 /min [facility] 01-27-2024 11:02-0500 Systolic blood pressure 118 mm[Hg] [facility] 01-27-2024 09:44-0500 Body height 198.12 cm [facility] 01-27-2024 09:44-0500 Body weight 114.3 kg [facility] 01-22-2024 12:47-0500 Diastolic blood pressure 61 mm[Hg] [facility] 01-22-2024 12:47-0500 Heart rate 72 /min [facility] 01-22-2024 12:47-0500 Mean blood pressure 77 mm[Hg] [facility] 01-22-2024 12:47-0500 Respiratory rate 16 /min [facility] 01-22-2024 12:47-0500 SaO2% (BldA) [Mass fraction] 97 % [facility] 01-22-2024 12:47-0500 Systolic blood pressure 110 mm[Hg] [facility] 01-22-2024 12:00-0500 Diastolic blood pressure 67 mm[Hg] [facility] 01-22-2024 12:00-0500 Heart rate 62 /min [facility] 01-22-2024 12:00-0500 Mean blood pressure 83 mm[Hg] [facility] 01-22-2024 12:00-0500 Systolic blood pressure 115 mm[Hg] [facility] 01-22-2024 11:30-0500 Heart rate 59 /min [facility] 01-22-2024 11:30-0500 SaO2% (BldA) [Mass fraction] 95 % [facility] 01-22-2024 10:58-0500 Diastolic blood pressure 74 mm[Hg] [facility] 01-22-2024 10:58-0500 Mean blood pressure 89 mm[Hg] [facility] 01-22-2024 10:58-0500 Respiratory rate 18 /min [facility] 01-22-2024 10:58-0500 Systolic blood pressure 118 mm[Hg] [facility] 01-22-2024 10:18-0500 Body temperature 98.6 [degF] [facility] 01-22-2024 10:18-0500 Heart rate 76 /min [facility] 09-26-2023 16:38-0400 Body height 198.12 cm [facility] 09-26-2023 16:38-0400 Body mass index (BMI) [Ratio] 27.7 kg/m2 [facility] 09-26-2023 16:38-0400 Body temperature 98.9 [degF] [facility] 09-26-2023 16:38-0400 Body weight 108.86 kg [facility] 09-26-2023 16:38-0400 Diastolic blood pressure 65 mm[Hg] [facility] 09-26-2023 16:38-0400 Heart rate 90 /min [facility] 09-26-2023 16:38-0400 Respiratory rate 18 /min [facility] 09-26-2023 16:38-0400 SaO2% (BldA) [Mass fraction] 98 % [facility] 09-26-2023 16:38-0400 Systolic blood pressure 113 mm[Hg] [facility] 08-20-2023 08:17-0400 Body height 198.12 cm [facility] 08-20-2023 08:17-0400 Body mass index (BMI) [Ratio] 27.7 kg/m2 [facility] 08-20-2023 08:17-0400 Body weight 108.86 kg [facility] 08-20-2023 08:17-0400 Diastolic blood pressure 75 mm[Hg] [facility] 08-20-2023 08:17-0400 Heart rate 79 /min [facility] 08-20-2023 08:17-0400 Systolic blood pressure 113 mm[Hg] [facility] 08-18-2023 10:29-0400 Body height 198.12 cm [facility] 08-18-2023 10:29-0400 Body mass index (BMI) [Ratio] 27.6 kg/m2 [facility] 08-18-2023 10:29-0400 Body temperature 98.8 [degF] [facility] 08-18-2023 10:29-0400 Body weight 108.57 kg [facility] 08-18-2023 10:29-0400 Heart rate 64 /min [facility] 08-18-2023 10:29-0400 Respiratory rate 18 /min [facility] 08-18-2023 10:29-0400 SaO2% (BldA) [Mass fraction] 98 % [facility] 03-25-2023 14:45-0500 Body height 198.12 cm Evelin Haque Other [facility] Other 03-25-2023 14:45-0500 Body mass index (BMI) [Ratio] 26.92 kg/m2 Evelin Haque Other [facility] Other 03-25-2023 14:45-0500 Body weight 105.69 kg Evelin Haque Other [facility] Other 03-25-2023 14:45-0500 Diastolic blood pressure 65 mm[Hg] Evelin Haque Other [facility] Other 03-25-2023 14:45-0500 SaO2% (BldA) [Mass fraction] 97 % Evelin Haque Other [facility] Other 03-25-2023 14:45-0500 Systolic blood pressure 91 mm[Hg] Evelin Haque Other [facility] Other 02-25-2023 11:15-0500 Body height 198.12 cm Evelin Haque Other [facility] Other 02-25-2023 11:15-0500 Body mass index (BMI) [Ratio] 26.99 kg/m2 Evelin Haque Other [facility] Other 02-25-2023 11:15-0500 Body temperature 97.7 [degF] Evelin Haque Other [facility] Other 02-25-2023 11:15-0500 Body weight 105.96 kg Evelin Haque Other [facility] Other 02-25-2023 11:15-0500 Diastolic blood pressure 63 mm[Hg] Evelin Haque Other [facility] Other 02-25-2023 11:15-0500 Systolic blood pressure 98 mm[Hg] Evelin Haque Other [facility] Other 11-18-2022 09:20-0400 Body height 198.12 cm Mercedes Call Other [facility] Other 11-18-2022 09:20-0400 Body mass index (BMI) [Ratio] 27.18 kg/m2 Mercedes Call Other [facility] Other 11-18-2022 09:20-0400 Body temperature 98 [degF] Mercedes Call Other [facility] Other 11-18-2022 09:20-0400 Body weight 106.69 kg Mercedes Call Other [facility] Other 11-18-2022 09:20-0400 Diastolic blood pressure 62 mm[Hg] Mercedes Call Other [facility] Other 11-18-2022 09:20-0400 Respiratory rate 18 /min Mercedes Call Other [facility] Other 11-18-2022 09:20-0400 SaO2% (BldA) [Mass fraction] 92 % Mercedes Call Other [facility] Other 11-18-2022 09:20-0400 Systolic blood pressure 113 mm[Hg] Mercedes Call Other [facility] Other 08-20-2022 11:45-0400 Body height 198.12 cm Evelin Haque Other [facility] Other 08-20-2022 11:45-0400 Body mass index (BMI) [Ratio] 27.27 kg/m2 Evelin Haque Other [facility] Other 08-20-2022 11:45-0400 Body temperature 98 [degF] Evelin Haque Other [facility] Other 08-20-2022 11:45-0400 Body weight 107.05 kg Evelin Haque Other [facility] Other 08-20-2022 11:45-0400 Diastolic blood pressure 68 mm[Hg] Evelin Haque Other [facility] Other 08-20-2022 11:45-0400 Systolic blood pressure 104 mm[Hg] Evelin Haque Other [facility] Other 03-09-2022 17:10-0500 Body height 198.12 cm Mercedes Call Other [facility] Other 03-09-2022 17:10-0500 Body mass index (BMI) [Ratio] 26.58 kg/m2 Mercedes Call Other [facility] Other 03-09-2022 17:10-0500 Body temperature 98.1 [degF] Mercedes Call Other [facility] Other 03-09-2022 17:10-0500 Body weight 104.33 kg Mercedes Call Other [facility] Other 03-09-2022 17:10-0500 Diastolic blood pressure 66 mm[Hg] Mercedes Call Other [facility] Other 03-09-2022 17:10-0500 Respiratory rate 18 /min Mercedes Call Other [facility] Other 03-09-2022 17:10-0500 SaO2% (BldA) [Mass fraction] 98 % Mercedes Call Other [facility] Other 03-09-2022 17:10-0500 Systolic blood pressure 117 mm[Hg] Mercedes Call Other [facility] Other 01-01-2022 17:30-0400 Body height 198.12 cm Darnellginna Goss Other [facility] Other 01-01-2022 17:30-0400 Diastolic blood pressure 60 mm[Hg] Darnell Goss Other [facility] Other 01-01-2022 17:30-0400 SaO2% (BldA) [Mass fraction] 99 % Darnell Wolfgang Other [facility] Other 01-01-2022 17:30-0400 Systolic blood pressure 110 mm[Hg] Darnell Goss Other [facility] Other 11-27-2021 16:00-0400 Body height 198.12 cm Darnell Goss Other [facility] Other 11-27-2021 16:00-0400 Body mass index (BMI) [Ratio] 25.65 kg/m2 Darnell Goss Other [facility] Other 11-27-2021 16:00-0400 Body weight 100.7 kg Darnell Goss Other [facility] Other 11-27-2021 16:00-0400 Diastolic blood pressure 60 mm[Hg] Darnell Goss Other [facility] Other 11-27-2021 16:00-0400 SaO2% (BldA) [Mass fraction] 97 % Darnell Goss Other [facility] Other 11-27-2021 16:00-0400 Systolic blood pressure 110 mm[Hg] Darnell Goss Other [facility] Other 09-25-2021 10:20-0400 Body height 198.12 cm Julienne Fernandesmond Other [facility] Other 09-25-2021 10:20-0400 Body mass index (BMI) [Ratio] 23.11 kg/m2 Julienne Fernandesmond Other [facility] Other 09-25-2021 10:20-0400 Body temperature 98.2 [degF] Julienne Fernandesmond Other [facility] Other 09-25-2021 10:20-0400 Body weight 90.72 kg Julienne Fine Other [facility] Other 09-25-2021 10:20-0400 Diastolic blood pressure 60 mm[Hg] Julienne Fernandesmond Other [facility] Other 09-25-2021 10:20-0400 Respiratory rate 18 /min Julienne Fernandesmond Other [facility] Other 09-25-2021 10:20-0400 SaO2% (BldA) [Mass fraction] 99 % Julienne Rody Other [facility] Other 09-25-2021 10:20-0400 Systolic blood pressure 121 mm[Hg] Julienne Fine Other [facility] Other 09-09-2021 14:00-0400 Body height 198.12 cm Hannah Carrilloault Other [facility] Other 09-09-2021 14:00-0400 Body mass index (BMI) [Ratio] 23.11 kg/m2 Hannah Carrilloault Other [facility] Other 09-09-2021 14:00-0400 Body temperature 98.8 [degF] Hannah Bryson Other [facility] Other 09-09-2021 14:00-0400 Body weight 90.72 kg Hannah Bryson Other [facility] Other 09-09-2021 14:00-0400 Diastolic blood pressure 80 mm[Hg] Hannah Bryson Other [facility] Other 09-09-2021 14:00-0400 Respiratory rate 18 /min Hannah Bryson Other [facility] Other 09-09-2021 14:00-0400 SaO2% (BldA) [Mass fraction] 98 % Hannah Bryson Other [facility] Other 09-09-2021 14:00-0400 Systolic blood pressure 130 mm[Hg] Hannah Bryson Other [facility] Other Encounters Encounter Date Encounter Type Care Provider Facility Start: 01-27-2024 End: 01-27-2024 [facility] Work Phone: Start: 01-27-2024 End: 01-27-2024 Patient encounter procedure [facility] Work Phone: Start: 01-23-2024 Non-patient / Non-visit [facility] Work Phone: Start: 01-22-2024 End: 01-22-2024 Emergency department patient visit Pedrito Oneill [facility] Start: 09-26-2023 End: 09-26-2023 ambulatory [facility] Work Phone: Start: 09-26-2023 End: 09-26-2023 Patient encounter procedure [facility] Work Phone: Start: 09-09-2023 End: 09-09-2023 ambulatory JOAQUÍN LEMUS Not Available Start: 08-20-2023 End: 08-20-2023 ambulatory [facility] Work Phone: Start: 08-20-2023 End: 08-20-2023 Patient encounter procedure [facility] Work Phone: Start: 08-18-2023 End: 08-18-2023 ambulatory [facility] Work Phone: Start: 08-18-2023 End: 08-18-2023 Patient encounter procedure [facility] Work Phone: Start: 04-22-2023 End: 04-22-2023 Office outpatient visit 25 minutes Jr. Yony Germain DO Work Phone: [facility] Comment on above: Internal derangement of right knee (Primary Dx) Start: 04-22-2023 End: 04-22-2023 ambulatory YONY BOUDREAUX Not Available Start: 04-01-2023 End: 04-01-2023 ambulatory JOAQUÍN LEMUS Not Available Start: 03-25-2023 End: 03-25-2023 ambulatory Evelin Haque Other [employer] Other Start: 03-25-2023 Office outpatient vi sit 15 minutes Evelin Haque [facility] Start: 02-25-2023 End: 02-25-2023 ambulatory Evelin Haque Other [employer] Other Start: 02-25-2023 Office outpatient vi sit 15 minutes Evelin Haque [facility] Start: 11-19-2022 End: 11-19-2022 ambulatory Evelin Haque Other [employer] Other Start: 11-19-2022 Telephone encounter Evelin Haque [facility] Start: 11-18-2022 End: 11-18-2022 ambulatory Mercedes Call Other [employer] Other Start: 11-18-2022 Office outpatient vi sit 15 minutes Mercedes Call [facility] Start: 08-20-2022 End: 08-20-2022 ambulatory Evelin Haque Other [employer] Other Start: 08-20-2022 Office outpatient vi sit 15 minutes Evelin Haque [facility] Start: 05-04-2022 (Televisit) Televisit Evelin Haque [facility] Start: 05-04-2022 End: 05-04-2022 ambulatory Evelin Haque Other [employer] Other Start: 03-14-2022 End: 03-14-2022 ambulatory Evelin Haque Other [employer] Other Start: 03-14-2022 Office outpatient vi sit 15 minutes Evelin Haque [facility] Start: 03-09-2022 End: 03-09-2022 ambulatory Mercedes Call Other [employer] Other Start: 03-09-2022 Office outpatient vi sit 15 minutes Mercedes Call [facility] Start: 01-01-2022 End: 01-01-2022 ambulatory Darnell Goss Other [employer] Other Start: 01-01-2022 Office outpatient vi sit 25 minutes Darnell Goss [facility] Start: 11-29-2021 End: 12-21-2021 ambulatory DARNELL GOSS Facility:[facility] Start: 11-27-2021 End: 11-27-2021 Patient encounter procedure MD Evelin Haque Work Phone: [facility] Start: 11-27-2021 End: 11-27-2021 ambulatory Darnell Goss [employer] Other Start: 11-27-2021 Office outpatient vi sit 25 minutes Darnell Goss [facility] Start: 09-25-2021 End: 09-25-2021 ambulatory Julienne Rody Other [employer] Other Start: 09-25-2021 Office outpatient vi sit 15 minutes Julienne Rody [facility] Start: 09-09-2021 End: 09-09-2021 ambulatory Hannah Massey Other [employer] Other Start: 09-09-2021 Office outpatient vi sit 15 minutes Hannah Masesy [facility] Start: 06-26-2021 End: [...] [address] [place] [address] Jr. Yony Germain DO [address] [place] [address] [facility] Immunizations Immunization Date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
[2024-03-01 17:52] VITALS: BP 135/93; PULSE 84; TEMP 36.6; O2SAT 100; BMI 26.4
[2024-03-01 18:18] VITALS: BP 139/86; PULSE 98; TEMP 36.8; O2SAT 99; BMI 30.2
--- NOTE | 2024-03-01 18:26 | ED_ITS ---
HPI HPI - Back Pain/Injury General Chief Complaint: Back Pain/Injury Stated Complaint: LOWER BACK PAIN/PREVIOUS INJURY Time Seen by Provider: 03/01/24 17:48 Source: patient Mode of arrival: walk-in Limitations: no limitations History of Present Illness HPI Narrative: Patient is a pleasant 23-year-old male who presents to the emergency department for evaluation of pain across the lower back. He developed pain about 1 month ago and was seen at [facility], he has recently followed up with spinal surgery here locally and had outpatient x-rays of the lumbar spine as well as a lumbar spine MRI on 02/19/2024. He states he does not have an appointment with spinal surgery until March 13 to go over his MRI results and he does not know the results of the MRI. He has not had any new falls or injuries since the MRI. He states yesterday he had an increase in pain with pain radiation to the legs although he has not had any peripheral paresthesias or urinary incontinence. He took a leftover Flexeril without improvement. Related Data Home Medications ?Medication ?Instructions ?Recorded ?Confirmed cyclobenzaprine 10 mg tablet 10 mg PO Q8H PRN muscle spasm 03/01/24 03/01/24 Previous Rx's ?Medication ?Instructions ?Recorded ketorolac 10 mg tablet 10 mg PO TID PRN pain #10 tabs 03/01/24 methocarbamol 750 mg tablet 750 mg PO TID PRN pain #20 tabs 03/01/24 methylprednisolone 4 mg tablets in See Rx Instructions .Route 03/01/24 a dose pack (Medrol (Talon)) .COMPLEX #21 ea Allergies Allergy/AdvReac Type Severity Reaction Status Date / Time No Known Drug Allergies Allergy Verified 03/01/24 17:51 Opioid HPI Opioid Management Most Recent Opioid Data: No Data to Display Review of Systems ROS Constitutional Denies: fever or chills Ears, nose, mouth, and throat Denies: throat pain or nasal congestion Cardiovascular Denies: chest pain Respiratory Denies: shortness of breath Gastrointestinal Denies: nausea or vomiting Genitourinary Denies: painful urination Musculoskeletal Reports: back pain; Denies: neck pain or extremity pain Integumentary/Breast Denies: rash Neurological Denies: numbness in extremities or weakness in extremities Hematologic/Lymphatic Denies: easy bruising or easy bleeding PFSH PFSH Social History Little interest or pleasure in doing things: not at all Feeling down, depressed, or hopeless: not at all Exam Narrative Exam Narrative: Gen.: Awake, alert, in no distress Head: Normocephalic, atraumatic ENT: Moist mucous membranes Respiratory: No respiratory distress Extremities: No bony point tenderness of the T-spine or L-spine with diffuse tenderness of the lumbar spine and paraspinal muscles. No obvious deformity or step-off. Normal dorsiflexion and plantarflexion of the lower extremities with normal hip flexion. No decrease in sensation to the medial thighs Psych: Normal mood and affect Neuro: No focal neuro deficit Skin: Warm, dry, intact Constitutional Vital Signs, click to edit/add: Last Vital Signs Temp 98.3 F 03/01/24 18:18 Pulse 98 H 03/01/24 18:18 Resp 18 03/01/24 18:18 BP 139/86 03/01/24 18:18 Pulse Ox 99 03/01/24 18:18 O2 Del Method Room Air 03/01/24 17:52 Course Vital Signs Vital signs: Vital Signs Temperature 98 F 03/01/24 17:52 Pulse Rate 84 03/01/24 17:52 Respiratory Rate 18 03/01/24 17:52 Blood Pressure 135/93 H 03/01/24 17:52 Pulse Oximetry 100 03/01/24 17:52 Oxygen Delivery Method Room Air 03/01/24 17:52 Temperature 98.3 F 03/01/24 18:18 Pulse Rate 98 H 03/01/24 18:18 Respiratory Rate 18 03/01/24 18:18 Blood Pressure 139/86 03/01/24 18:18 Pulse Oximetry 99 03/01/24 18:18 Oxygen Delivery Method Room Air 03/01/24 17:52 MDM - Back Pain/Injury MDM Narrative Medical decision making narrative: Patient with recent MRI showing an annular tear at L3, L4 and herniated disc. He is neurovascularly intact with no focal neurodeficits. He was given a copy of his MRI results and instructed to follow-up with spinal surgery for further evaluation and treatment. He stated that he does not want to take narcotics so he was treated with Solu-Medrol, Toradol and Norflex in the emergency department and discharged home with Toradol, Medrol Dosepak and Robaxin. Rest, ice, gentle stretching. Follow-up with spinal surgery and return to the ER if symptoms change or worsen SUPERVISED APC VISIT, PHYSICIAN ATTESTATION: Based on the medical record the care appears appropriate. ? Medical Records Attestation: I reviewed the patient's medical records. Discharge Plan Discharge Chief Complaint: Back Pain/Injury Clinical Impression: Low back pain Patient Disposition: Home, Self-Care Time of Disposition Decision: 18:23 Condition: Good Prescriptions / Home Meds: New ketorolac 10 mg tablet 10 mg PO TID PRN (Reason: pain) Qty: 10 0RF methocarbamol 750 mg tablet 750 mg PO TID PRN (Reason: pain) Qty: 20 0RF methylprednisolone [Medrol (Talon)] 4 mg tablets,dose pack See Rx Instructions .ROUTE .COMPLEX Qty: 21 0RF Rx Instructions: Taper as directed No Action cyclobenzaprine 10 mg tablet 10 mg PO Q8H PRN (Reason: muscle spasm) Print Language: Chinese Instructions: Acute Low Back Pain (ED) Additional Instructions: Follow up with Dr. Jauregui as scheduled Referrals: Evelin Blue MD [Primary Care Provider] - 1 week
[2024-03-01] MEDS: KETOROLAC TROMETHAMINE 60 MG/2 ML VIAL IM (18:34)
[2024-03-01] MEDS: ORPHENADRINE 60 MG/ 2 ML VIAL IM (18:35)
[2024-03-01] MEDS: METHYLPREDNISOLONE SOD SUCC PF 125 MG/2 ML VIAL IM (18:35)
== END 2024-03-01 18:45 | disposition home or self-care (01) ==
PROVIDERS: Emergency Provider Emergency Medicine; PCP Family Medicine
DX: M54.50 Low back pain, unspecified (principal)
CPT/HCPCS: 96372; 99284; J1885; J2360; J2919

== ENCOUNTER 2024-11-05 19:37 | Outpatient (OUT) | payer OTHER, SELFPAY ==
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
--- NOTE | 2024-11-05 | US_ITS ---
[address] [address] Patient Name: CITLALY ARELLANO MRN: [id number] date: 2000 Sex: M Assigned Patient Location: Current Patient Location: Accession/Order Number: [id number] Exam Date: 11/05/2024 20:15 Report Date: 11/06/2024 00:52 At the request of: LEANNA HAQUE MD Procedure: US scrotum EXAMINATION TYPE: US scrotum grayscale, color Doppler, waveform duplex analysis was performed. DATE OF EXAM ORDERED: 11/05/2024 8:43 PM HISTORY: MASS OF LEFT TESTICLE N50.89 COMPARISON: NONE TECHNIQUE: Realtime imaging of the scrotum was performed. Branch scale, color Doppler and spectral Doppler imaging of the testicles was performed. FINDINGS: Testicles: Both testicles demonstrate homogeneous echotexture without intratesticular filling defect. Benign-appearing calcifications are noted in the right testicle. Right measurements: 2.5 x 1.1 x 1.5 cm Left measurements: 2.9 x 1.1 x 1.3 cm Epididymis: There is an anechoic epididymal head cyst on the left measuring 6 x 3 x 4 mm Right measurements: 0.9 cm Left measurements: 0.8 cm Hydrocele: None. Doppler ultrasound of the testicles: Arterial and venous waveforms are seen within both testicles. No sonographic evidence of testicular ischemia. US/US scrotum IMPRESSION: 1. The testicles are normal in size and echogenicity. No intratesticular lesions. 2. No sonographic evidence of testicular ischemia. 3. There is an anechoic epididymal head cyst on the left measuring 6 x 3 x 4 mm. Impression dictated by: Danilo Casper M.D. 11/06/2024 12:52 AM Dictation Location: [place] [address] Electronically authenticated by: [id number] Y Date: 11/06/2024 00:52
--- OUTSIDE RECORDS SUMMARY | 2024-11-05 19:41 | XMS_ITS | Encounter Summary ---
Author Organization [facility] Address [address] [place] [address] Care Team Providers Care Slice Plug Cutter Operator Helper Name Role Phone Evelin Blue MD Primary Care Provider [phone] Joaquín Johnson PA Unavailable Encounter Details Date Type Department Care Team (Late st Contact Info) Description 04/08/2023 Clinisync Result Encounter [facility] External Department Unsolicited Joaquín Johnson, PA [address] [place] [address] Social History Tobacco Use Types Packs/Day Years Used Date Smoking Tobacco: Every Day Smokeless Tobacco: Never Comments:Pt vapes Alcohol Use Standard Drinks/Week Comments Yes 0 (1 standard drink = 0.6 oz pur e alcohol) 12drinks/week Sex and Gender Information Value Date Recorded Sex Assigned at Not on file Legal Sex Male 10:12 PM EDT Gender Identity Not on file Sexual Orientation Not on file documented as of this encounter Plan of Treatment Not on file documented as of this encounter Procedures Procedure Name Priority Date/Time Associated Diagnosis Comments XR FOREIGN BODY EYE 04/08/2023 8 :44 AM EST documented in this encounter Results * XR FOREIGN BODY EYE (04/08/2023 8:44 AM EST) Anatomical Region Laterality Modality Other 04/08/2023 8:44 AM EST Narrative 04/08/2023 8:46 [place] [address] XRay Report Signed Patient: CITLALY ARELLANO MR#: [id number] : 2000 Acct:[id number] Age/Sex: 22 / M ADM Date: 04/08/23 Loc: RAD Attending Dr: Joaquín Johnson PA Ordering Physician: Joaquín Johnson Date of Service: 04/08/23 Procedure(s): XR foreign body eye Accession Number(s): [id number] cc: Evelin Blue M.D.; Joaquín Johnson [place] [address] Patient Name: CITLALY ARELLANO MRN: [id number] date: 2000 Sex: M Assigned Patient Location: RAD Current Patient Location: [facility] Accession/Order Number: [id number] Exam Date: 04/08/2023 08:15 Report Date: 04/08/2023 08:44 At the request of: JOAQUÍN JOHNSON Procedure: XR foreign body eye EXAM: XR foreign body eye HISTORY: Foreign Body Eye COMPARISON: 04/25/2016 TECHNIQUE: 2 views of the skull/orbits to evaluate for foreign body. FINDINGS: No radiodense/metallic foreign bodies within the ywbem-lb-qsah, specifically within the orbits. No appreciable acute displaced facial bone fracture. XR/XR foreign body eye IMPRESSION: 1. No radiodense/metallic foreign body within the vvkxf-cu-tohc. Electronically authenticated by: MANI GAN Date: 04/08/2023 08:44 Dictated By: Mani Gan M.D. Signed By: 04/08/23 0846 DD/ 0844 TD/TT: Rent And Miscellaneous Remittance Clerk: Procedure Note Radiology, Radiologist, MD - 04/08/2023 [place] [address] XRay Report Signed Patient: CITLALY ARELLANO JMR#: [id number] : 2000Acct:[id number] Age/Sex: 22 / MADM Date: 04/08/23 Loc: RAD Attending Dr: Joaquín ARMIJO Ordering Physician: Joaquín Johnson Date of Service: 04/08/23 Procedure(s): XR foreign body eye Accession Number(s): [id number] cc: Evelin Blue M.D.; Joaquín Johnson [address] [address] Patient Name: CITLALY ARELLANO MRN: [id number] date: 2000 Sex: M Assigned Patient Location: RAD Current Patient Location: RAD Accession/Order Number: [id number] Exam Date: 04/08/2023 08:15 Report Date: 04/08/2023 08:44 At the request of: JOAQUÍN JOHNSON Procedure: XR foreign body eye EXAM: XR foreign body eye HISTORY: Foreign Body Eye COMPARISON: 04/25/2016 TECHNIQUE: 2 views of the skull/orbits to evaluate for foreign body. FINDINGS: No radiodense/metallic foreign bodies within the wuvhn-ov-cpar, specifically within the orbits. No appreciable acute displaced facial bone fracture. XR/XR foreign body eye IMPRESSION: 1. No radiodense/metallic foreign body within the qyane-jk-zohi. Electronically authenticated by: MANI GAN Date: 04/08/2023 08:44 Dictated By: Mani Gan M.D. Signed By:04/08/2346 DD/ TD/TT: Rent And Miscellaneous Remittance Clerk: us Joaquín [facility]MIJO [facility] Final Resul t documented in this encounter Visit Diagnoses Not on filedocumented in this encounter Care Teams Slice Plug Cutter Operator Helper Relationship Specialty Start Date End Date Evelin Blue MD PCP - General Family Medicine 04/01/23 Joaquín Johnson PA [address] [place] [phone] PCP - Medical [place] [employer] 12/15/22 11/20/23 documented as of this encounter
--- OUTSIDE RECORDS SUMMARY | 2024-11-05 19:41 | XMS_ITS | Encounter Summary ---
Author Organization [facility] Address [address] [place] [address] Care Team Providers Care Weir Fisherman Name Role Phone Evelin Blue MD Primary Care Provider [phone] Joaquín Johnson PA Unavailable Encounter Details Date Type Department Care Team (Late st Contact Info) Description 04/08/2023 Clinisync Result Encounter [facility] External Department Unsolicited Joaquín Johnson, PA [address] [place] [address] Social History Tobacco Use Types [...] EST Narrative 04/08/2023 8:46 [place] [address] XRay Report Signed Patient: CITLALY ARELLANO MR#: [id number] : 2000 Acct:[id number] Age/Sex: 22 / M ADM Date: 04/08/23 Loc: RAD Attending Dr: Joaquín Johnson PA Ordering Physician: Joaquín Johnson Date of Service: 04/08/23 Procedure(s): XR foreign body eye Accession Number(s): [id number] cc: Evelin Blue M.D.; Joaquín Johnson [place] [address] Patient Name: CITLALY ARELLANO MRN: [id number] date: 2000 Sex: M Assigned Patient Location: RAD Current Patient Location: RAD Accession/Order Number: [id number] Exam Date: 04/08/2023 08:15 Report Date: 04/08/2023 08:44 At the request of: JOAQUÍN JOHNSON Procedure: XR foreign body eye EXAM: XR foreign body eye HISTORY: Foreign Body Eye COMPARISON: 04/25/2016 TECHNIQUE: 2 views of the skull/orbits to evaluate for foreign body. FINDINGS: No radiodense/metallic foreign bodies within the toxeo-jr-eshg, specifically within the orbits. No appreciable acute displaced facial bone fracture. XR/XR foreign body eye IMPRESSION: 1. No radiodense/metallic foreign body within the iquwk-jw-pzpm. Electronically authenticated by: MANI GAN Date: 04/08/2023 08:44 Dictated By: Mani Gan M.D. Signed By: 04/08/23 0846 DD/ 0844 TD/TT: Metal Fabricator Welder: Procedure Note Radiology, Radiologist, - 05/15/2023 [place] [address] XRay Report Signed Patient: CITLALY ARELLANO JMR#: [id number] : 2000Acct:[id number] Age/Sex: 22 / MADM Date: 04/08/23 Loc: RAD Attending Dr: Joaquín ARMIJO Ordering Physician: Joaquín Johnson Date of Service: 04/08/23 Procedure(s): XR foreign body eye Accession Number(s): [id number] cc: Evelin Blue M.D.; Joaquín Johnson [address] [address] Patient Name: CITLALY ARELLANO MRN: [id number] date: 2000 Sex: M Assigned Patient Location: RAD Current Patient Location: RAD Accession/Order Number: [id number] Exam Date: 04/08/2023 08:15 Report Date: 04/08/2023 08:44 At the request of: JOAQUÍN JOHNSON Procedure: XR foreign body eye EXAM: XR foreign body eye HISTORY: Foreign Body Eye COMPARISON: 04/25/2016 TECHNIQUE: 2 views of the skull/orbits to evaluate for foreign body. FINDINGS: No radiodense/metallic foreign bodies within the gfkoy-ap-scdg, specifically within the orbits. No appreciable acute displaced facial bone fracture. XR/XR foreign body eye IMPRESSION: 1. No radiodense/metallic foreign body within the eoqks-pi-mniy. Electronically authenticated by: MANI GAN Date: 04/08/2023 08:44 Dictated By: Mani Gan M.D. Signed By:04/08/2346 DD/ TD/TT: Metal Fabricator Welder: us Joaquín [facility]MIJO [facility] Final Resul t documented in this encounter Visit Diagnoses Not on filedocumented in this encounter Care Teams Weir Fisherman Relationship Specialty Start Date End Date Evelin Blue MD PCP - General Family Medicine 04/01/23 Joaquín Johnson PA [address] [place] [phone] PCP - Medical [place] [employer] 12/15/22 11/20/23 documented as of this encounter
--- OUTSIDE RECORDS SUMMARY | 2024-11-05 19:41 | XMS_ITS | Encounter Summary ---
Author Organization [facility] Address [address] [place] [address] Care Team Providers Care Payroll Consultant Name Role Phone Evelin Blue MD Primary Care Provider [phone] Joaquín Johnson PA Unavailable [phone] Encounter Details Date Type Department Care Team (Late st Contact Info) Description 04/08/2023 Clinisync Result Encounter [facility] External Department Unsolicited Joaquín Johnson, PA [address] [place] [address] Social History Tobacco Use Types [...] Procedure Name Priority Date/Time Associated Diagnosis Comments MR KNEE RT WO CON 04/08/2023 12: 25 PM EST documented in this encounter Results * MR KNEE RT WO CON (04/08/2023 12:25 PM EST) Anatomical Region Laterality Modality Other 04/08/2023 12:2 5 PM EST Narrative 04/08/2023 12:28 [place] [address] Magnetic Resonance Report Signed Patient: CITLALY ARELLANO MR#: [id number] : 2000 Acct:[id number] Age/Sex: 22 / M ADM Date: 04/08/23 Loc: [facility] Attending Dr: Joaquín ARMIJO Ordering Physician: Joaquín Johnson Date of Service: 04/08/23 Procedure(s): MR knee RT wo con Accession Number(s): [id number] cc: Evelin Blue M.D.; Joaquín Johnson [address] [address] Patient Name: CITLALY ARELLANO MRN: [id number] date: 2000 Sex: M Assigned Patient Location: [facility] Current Patient Location: [facility] Accession/Order Number: [id number] Exam Date: 04/08/2023 08:45 Report Date: 04/08/2023 12:25 At the request of: JOAQUÍN JOHNSON Procedure: MR knee RT wo con EXAM: MR knee RT wo con HISTORY: Internal Derangement Of Right Knee M23.91 generalized right knee pain for one month. No known injury. COMPARISON: Comparison is made to right knee radiographs dated 06/26/2021. TECHNIQUE: Multiplanar, multisequence imaging of the right knee was performed without administration of intravenous or intra-articular gadolinium contrast. FINDINGS: There is no acute fracture or dislocation of the right knee. Bone marrow signal is normal. There is mild chondrosis of the right patella predominantly involving the median ridge and adjacent lateral patellar facet. There is minimal chondral thinning with tiny chondral ulcerations at the median ridge and there is mild chondral heterogeneity at the lateral patellar facet. The medial meniscus demonstrates normal morphology and signal without tear. The lateral meniscus demonstrates normal morphology and signal without tear. The anterior and posterior cruciate ligaments are intact. The extensor mechanism, including the quadriceps and patellar tendons, is normal. The medial collateral ligament and the lateral collateral ligament complex are normal. There is a physiologic volume of joint fluid within the knee. There is no posterior joint extension/popliteal cyst. MR/MR knee RT wo con IMPRESSION: 1. No acute displaced fracture or dislocation of the right knee. 2. 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 3. Intact right knee menisci, cruciate ligaments, and collateral ligaments. 4. Physiologic volume of right knee joint fluid without popliteal cyst. Electronically authenticated by: KEVAN GODDARD Date: 04/08/2023 12:25 Dictated By: Kevan Goddard M.D. Signed By: 04/08/23 1228 DD/ 1225 TD/TT: Industrial Cook: Procedure Note Radiology, Radiologist, MD - 05/15/2023 [place] [address] Magnetic Resonance Report Signed Patient: CITLALY ARELLANO R#: [id number] : 2000Acct:[id number] Age/Sex: 22 / MADM Date: 04/08/23 Loc: RAD Attending Dr: Joaquín ARMIJO Ordering Physician: Joaquín Johnson Date of Service: 04/08/23 Procedure(s): MR knee RT wo con Accession Number(s): [id number] cc: Evelin Blue M.D.; Joaquín Johnson [address] [place] [id number] Patient Name: CITLALY ARELLANO MRN: [id number] date: 2000 Sex: M Assigned Patient Location: [facility] Current Patient Location: [facility] Accession/Order Number: [id number] Exam Date: 04/08/2023 08:45 Report Date: 04/08/2023 12:25 At the request of: JOAQUÍN JOHNSON Procedure: MR knee RT wo con EXAM: MR knee RT wo con HISTORY: Internal Derangement Of Right Knee M23.91 generalized right kneepain for one month. No known injury. COMPARISON: Comparison is made to right knee radiographs dated 06/26/2021. TECHNIQUE: Multiplanar, multisequence imaging of the right knee wasperformed without administration of intravenous or intra-articular gadoliniumcontrast. FINDINGS: There is no acute fracture or dislocation of the right knee. Bone marrow signal is normal. There is mild chondrosis of the right patella predominantly involving the median ridge and adjacent lateral patellar facet. There is minimal chondral thinning with tiny chondral ulcerations at the medianridge and there is mild chondral heterogeneity at the lateral patellar facet. The medial meniscus demonstrates normal morphology and signal withouttear. The lateral meniscus demonstrates normal morphology and signal without tear. The anterior and posterior cruciate ligaments are intact. The extensor mechanism, including the quadriceps and patellar tendons, is normal. The medial collateral ligament and the lateral collateral ligament complexare normal. There is a physiologic volume of joint fluid within the knee. There is no posterior joint extension/popliteal cyst. MR/MR knee RT wo con IMPRESSION: 1. No acute displaced fracture or dislocation of the right knee. 2. Chondrosis of the right patella predominantly involving the medianridge and adjacent lateral patellar facet. 3. Intact right knee menisci, cruciate ligaments, and collateralligaments. 4. Physiologic volume of right knee joint fluid without popliteal cyst. Electronically authenticated by: KEVAN GODDARD Date: 04/08/2023 12:25 Dictated By: Kevan Goddard M.D. Signed By:04/08/23 1228 DD/ 1225 TD/TT: Industrial Cook: us Joaquín [facility]MIJO [facility] Final Resul t documented in this encounter Visit Diagnoses Not on filedocumented in this encounter Care Teams Payroll Consultant Relationship Specialty Start Date End Date Evelin Blue MD PCP - General Family Medicine 04/01/23 Joaquín Johnson PA [address] [place] [phone] PCP - Medical [place] [employer] 12/15/22 11/20/23 documented as of this encounter
--- OUTSIDE RECORDS SUMMARY | 2024-11-05 19:41 | XMS_ITS | Clinical Summary ---
Author Organization [facility] Address [address] [place] [address] Care Team Providers Care Drivers' Cash Clerk Name Role Phone Evelin Blue MD Primary Care Provider [phone] Allergies Active Allergy Reactions Criticality Noted Date Comments Prednisone 04/01/2023 MAKES PT VERY TIRED Medications No known medications Active Problems No known active problems Family History Relation Name Status Comments Father Alive Mother Alive Social History Tobacco Use Types Packs/Day Years Used Date Smoking Tobacco: Every Day Smokeless Tobacco: Never Tobacco Cessation:Ready to Q uit: Not Asked; Counseling Given: Not Answered Comments:Pt vapes Alcohol Use Standard Drinks/Week Comments Yes 0 (1 standard drink = 0.6 oz pur e alcohol) 12drinks/week Sex and Gender Information Value Date Recorded Sex Assigned at Not on file Legal Sex Male 10:12 PM EDT Gender Identity Not on file Sexual Orientation Not on file Last Filed Vital Signs Vital Sign Reading Time Taken Comments Blood Pressure 132/69 01/23/2019 12:00 PM EST Pulse - - Temperature - - Respiratory Rate - - Oxygen Saturation - - Inhaled Oxygen Concentration - - Weight 104 kg (230 lb) 04/01/2023 9:05 AM EST Height 200.7 cm (6' 7 ) 04/01/2023 9:05 AM EST Body Mass Index 25.91 04/01/2023 9:05 AM EST Plan of Treatment Not on file Insurance [employer] Care Teams Drivers' Cash Clerk Relationship Specialty Start Date End Date Evelin Blue MD PCP - General Family Medicine 04/01/23
--- OUTSIDE RECORDS SUMMARY | 2024-11-05 19:41 | XMS_ITS | Encounter Summary ---
Author Organization [facility] Address [address] [place] [place] [address] Care Team Providers Care Grainer Machine Name Role Phone Evelin Blue MD Primary Care Provider [phone] Joaquín Johnson PA Unavailable [phone] Encounter Details Date Type Department Care Team (Late st Contact Info) Description 04/08/2023 Clinisync Result Encounter [facility] External Department Unsolicited Joaquín Johnson, PA [address] [place] [address] Social History Tobacco Use Types [...] PM EST Narrative 04/08/2023 12:28 [place] [address] Magnetic Resonance Report Signed Patient: CITLALY ARELLANO MR#: [id number] : 2000 Acct:[id number] Age/Sex: 22 / M ADM Date: 04/08/23 Loc: [facility] Attending Dr: Joaquín ARMIJO Ordering Physician: Joaquín Johnson Date of Service: 04/08/23 Procedure(s): MR knee RT wo con Accession Number(s): [id number] cc: Evelin Blue M.D.; Joaquín Johnson [address] [address] Patient Name: CITLALY ARELLANO MRN: [id number] date: 2000 Sex: M Assigned Patient Location: [facility] Current Patient Location: [facility] Accession/Order Number: [id number] Exam Date: 04/08/2023 08:45 Report Date: 04/08/2023 [...] Signed By: 04/08/23 1228 DD/ 1225 TD/TT: Comfort Station Attendant: Procedure Note Radiology, Radiologist, MD - 04/08/2023 [place] [address] Magnetic Resonance Report Signed Patient: CITLALY ARELLANO R#: [id number] : 2000Acct:[id number] Age/Sex: 22 / MADM Date: 04/08/23 Loc: RAD Attending Dr: Joaquín ARMIJO Ordering Physician: Joaquín Johnson Date of Service: 04/08/23 Procedure(s): MR knee RT wo con Accession Number(s): [id number] cc: Evelin Blue M.D.; Joaquín Johnson [address] [place] [id number] Patient Name: CITLALY ARELLANO MRN: [id number] date: 2000 Sex: M Assigned Patient Location: [facility] Current Patient Location: [facility] Accession/Order Number: [id number] Exam Date: 04/08/2023 08:45 Report Date: 04/08/2023 [...] M.D. Signed By:04/08/23 1228 DD/ 1225 TD/TT: Comfort Station Attendant: us Joaquín [facility]MIJO [facility] Final Resul t documented in this encounter Visit Diagnoses Not on filedocumented in this encounter Care Teams Grainer Machine Relationship Specialty Start Date End Date Evelin Blue MD PCP - General Family Medicine 04/01/23 Joaquín Johnson PA [address] [place] [phone] PCP - Medical [place] [employer] 12/15/22 11/20/23 documented as of this encounter
--- OUTSIDE RECORDS SUMMARY | 2024-11-05 19:41 | XMS_ITS | Clinical Summary ---
Author Organization [facility] Address [address], [address] [place] [address] Care Team Providers Care First Sampler Name Role Phone Evelin Blue MD Primary Care Provider [phone] Allergies No known active allergies Medications diclofenac (VOLTAREN) 50 MG EC tablet Take 1 tablet by mouth 2 times daily 60 tablet 09/24/2018 Active predniSONE (DELTASONE) 10 MG tablet Take 1 tablet by mouth daily 1 tab TID x 3 days, 1 tab BID x 3 days, 1 tab QD x 3 days Stop NSAIDS while taking 18 tablet 12/02/2018 Active Active Problems No known active problems Social History Tobacco Use Types Packs/Day Years Used Date Smoking Tobacco: Never Smokeless Tobacco: Current Chew Alcohol Use Standard Drinks/Week Comments Yes 0 (1 standard drink = 0.6 oz pur e alcohol) AUDIT-C Answer Date Recorded Frequency of Alcohol Consumption 4 or more times a week 11/21/2018 Average Number of Drinks Not on file 019 Frequency of Binge Drinking Not on file 11/09 Sex and Gender Information Value Date Recorded Sex Assigned at Not on file Legal Sex Male 8:47 AM EDT Gender Identity Not on file Sexual Orientation Not on file Last Filed Vital Signs Vital Sign Reading Time Taken Comments Blood Pressure - - Pulse - - Temperature 36.3 C (97.3 F) 10/17/2018 2:44 PM EDT Respiratory Rate - - Oxygen Saturation - - Inhaled Oxygen Concentration - - Weight 90.7 kg (200 lb) 12/25/2018 8:37 AM EDT Height 200.7 cm (6' 7 ) 12/25/2018 8:37 AM EDT Body Mass Index 22.53 12/25/2018 8:37 AM EDT Plan of Treatment Not on file Insurance [employer] Care Teams First Sampler Relationship Specialty Start Date End Date Evelin Blue MD PCP - General Family Medicine 09/24/18
--- OUTSIDE RECORDS SUMMARY | 2024-11-05 19:41 | XMS_ITS | Patient Health Record ---
Author Organization [facility] Address [address] [place] [address] Care Team Providers Care Obgyn Hospitalist Physician Name Role Phone Evelin Blue M.D. Primary Care Provider Unavail able Ezra Borges Unavailable [phone] TutuJulianKarly Unavailable [phone] Reason For Referral Reason APPROVED............ 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 Outpatient Referred Address [address] [place], [place],[address], Procedure 1 MRI Lumbar Spine w/o Dye (51869) General Notes Quynh Nunez 2023 10:44:09 AM >[place] Kayla 02/14/2024 10:56:04 AM > MMO ACTIVE AND EFFECTIVE 12/15/22 PER [facility]. CASE # [id number] PENDING MEMBER OUTREACH FOR FACILITY CONFIRMATION. PLEASE HAVE PATIENT REACH OUT TO [facility] @ [phone] TO CONFIRM [facility] THEIR FACILITY CHOICE., Leeann Bojorquez 02/14/2024 02:56:50 PM > AUTHORIZATION # [id number] APPROVED FOR [facility] AND VALID 02/14/24-03/30/24 PER FAX BACK FROM [facility]. SCANNED INTO CHART AND FAXED TO [facility]. Connie Floreza 02/18/2024 12:16:37 PM > order faxed Referral Priority Routine Reason REFERRAL TO DR DIALLO FOR EVAL AND TREAT Diagnosis 1 HNP (herniated nucle us pulposus), lumbar (M51.26) Referral Organization [facility] Referring Provider First Name Ezra Referring Provider Last Name Katerina Referring Provider Speciality Orthopedic Surgery Referred Organization Pain clinic General Notes Quynh Nunez 2024 09:01:19 AM >Enrique DELEON Dawn 03/24/2024 08:08:41 AM >REFERRAL SENT Referral Priority Routine Social History Tobacco Use: Social History Observation Description Date Details (start date - stop date) Current some da y smoker NA - NA AUDIT-C (Standard) Question Answer Notes Did you have a drink contain ing alcohol in the past year? Yes How often did you have six o r more drinks on one occasion in the past year? Declined to specify (0 point) How many drinks did you have on a typical day when you were drinking in the past year? Declined to specify (0 point) How often did you have a dri nk containing alcohol in the past year? 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) Active confirmed Encounters Encounter Location Date Provider Diagnosis [facility] [address] [place] [address] [place] [address] 02/14/2024 Karly meeksButler Other intervertebral disc degeneration, lumbosacral region with discogenic back pain and lower extremity pain M51.372 and Spinal stenosis, lumbosacral region M48.07 [facility] [address] [place] [address] [place] [address] 03/13/2024 Karly meeksButler Other intervertebral disc degeneration, lumbosacral region with discogenic back pain and lower extremity pain M51.372 and Other intervertebral disc displacement, lumbosacral region M51.27 [facility] [address] [place] [address] 03/13/2024 Ezra Borges Assessments Encounter Date Diagnosis (ICD Code) Assessment Notes Treatment Notes Treatment Clinical Notes Section Notes 02/14/2024 Spinal stenosis, lumbosacral region (ICD-10 - M48.07) 1. L5-S1 DDD/NFS/rad iculopathy 02/14/2024 Other intervertebral disc degeneration, lumbosacral region with discogenic back pain and lower extremity pain (ICD-10 - M51.372) 1. L5-S1 DDD/NFS/rad iculopathy 03/13/2024 Other intervertebral disc displacement, lumbosacral region (ICD-10 - M51.27) 1. L3-S1 DDD/HNP 03/13/2024 Other intervertebral disc degeneration, lumbosacral region with discogenic back pain and lower extremity pain (ICD-10 - M51.372) 1. L3-S1 DDD/HNP 02/14/2024 Other Plan established by Dr. Jauregui. Patient evaluated by myself and Dr. Jauregui today. Given patient's symptoms and weakness on exam I have ordered an MRI of the lumbar spine to evaluate for any neural compression. We will see patient back in the office after imaging is complete to review and offer further recommendations. The patient is very much in agreement with the treatment and/or diagnostic plan set forth and all questions were answered to the patient's satisfaction. Thanks once again. If we can be of further service to your patients with disorders of the spine, cervical, thoracic, or lumbar, please do not hesitate to contact Dr. Jauregui. Best regards, 1. L5-S1 DDD/NFS/rad iculopathy 03/13/2024 Other Plan established by Dr. Jauregui. At this time, Dr. Jauregui discussed MRI results with the patient and is recommending nonoperative management. We will send referral to Dr. Diallo with pain management to evaluate and treat. We will see patient back on an as-needed basis. The patient is very much in agreement with the treatment and/or diagnostic plan set forth and all questions were answered to the patient's satisfaction. Thanks once again. If we can be of further service to your patients with disorders of the spine, cervical, thoracic, or lumbar, please do not hesitate to contact Dr. Jauregui. Best regards, 1. L3-S1 DDD/HNP Plan Of Treatment Pending Test Test Name Order Date Lumbar spine, 4v flex ext - [id number] 2023 Orbits Complete 02/14/2024 MRI : Lumbosacral Spine W/O Contrast - 7 214702/14/2024 Insurance Providers Payer Name Payer Address Payer Phone Subscriber Number Group Number Insured Name Patient Relationship to Insured Coverage Start Date Coverage End Date [facility] [address] [place] [address] [id number] CITLALY ARELLANO Self - patient is the insured
--- OUTSIDE RECORDS SUMMARY | 2024-11-05 19:42 | XMS_ITS | CCD ---
Author Organization [facility] CliniSypr Care Team Providers Care 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 Name Role Phone Hannah Massey Unavailable Julienne Fine Unavailable MD Evelin Haque Primary Care Provider [phone] MD Darnell Goss Attending Provider [phone] Darnell Goss Unavailable Darnell Goss Attending Unavailable Darnell Goss Admitting Unavailable Evelin Haque Primary Care Unavailable DARNELL GOSS Admitting Unavailable DARNELL GOSS Attending Unavailable SHABNAM, DR EVELIN Kim Primary Care Unavailable SHABNAM, DR EVELIN Kim Admitting Unavailable SHABNAM, DR EVELIN Kim Attending Unavailable SHABNAM, DR EVELIN Kim Primary Care Unavailable SHABNAM, DR EVELIN Kim Consulting Unavailable JULIANO ROONEY Admitting Unavailable JULIANO ROONEY Attending Unavailable SHABNAM, DR EVELIN Kim Primary Care Unavailable ANDRIY, DR VIVIEN Maguire Consulting Unavailable TORIBIO, JULIANO Consulting Unavailable Evelin Haque Unavailable Mercedes Call Unavailable Evelin Haque MD Primary Care Provider JOAQUÍN LEMUS Attending Unavailable JOAQUÍN LEMUS Referring Unavailable JR. GERMAIN GEORGE C Attending Unavaila ble JOAQUÍN LEMUS Attending Unavailable EVELIN HAQUE Primary Care Physician Pedrito Oneill Attending Unavailable Evelin Haque MD Primary Care Provider [phone] Darnell Goss MD Attending Provider [phone] Nathalia Mcintyre APRN Attending Provider [phone] Evelin Haque MD Primary Care Provider Wolfgang MD, Darnell S Attending Provider [phone] Evelin Haque MD Attending Provider [phone] Allergies Allergy Classification Reported Allergen(s) Allergy Type Date of Onset Reaction(s) Facility (13 sources) Corticosteroids Propensity to adverse reactions fatigue M:[facility] Other (4 sources) Amoxicillin Drug Allergy 12-30-19 13 Unknown [facility] Other (4 sources) Pseudoephedrine Drug Allergy Unknown [facility] Other (4 sources) Allergies Reconciled Propensity to adverse reactions Unknown [facility] Other (4 sources) patient allergy list reviewed by nurse or physicia Propensity to adverse reactions 06-01-19 15 Comment:Done M:[facility] Other (2 sources) Prednisone Propensity to adverse reactions 04-01-19 24 [facility] (1 source) No Known Medication Allergies; Translations: [No Known Medication Allergies] Propensity to adverse reactions (disorder) [facility] Repository Medications Current Medications Medication Drug Class(es) Dates Sig (Normalized) Sig (Original) amoxicillin 500 mg oral capsule (1 source) Penicillin-class Antibacterial take 1 capsule by mouth every eight hours Amoxicillin 500 MG 1 capsule Orally every 8 hrs for 7 days Active betamethasone 0.5 mg/ml / clotrimazole 10 mg/ml topical cream (4 sources) Azole Antifungal, Corticosteroid Start: 03-09-2022 Clotrimazole-Beta methasone 1-0.05 % 1 application Externally Three time a day for 7 days Feb, Active ibuprofen 200 mg oral tablet (7 sources) Nonsteroidal Anti-inflammatory Drug take 1 tablet by mouth three times daily at mealtime as needed Ibuprofen 200 MG 1 tablet with food or milk as needed Orally Three times a day Active predniSONE 10 mg oral tablet (20 sources) Start: 10-30-2024 take 4 tablets by mouth once daily, then take 3 tablets by mouth once daily, then take 2 tablets by mouth once daily, then take 1 tablet by mouth once daily Prednisone 10 mg tablet Active 10 MG PO As Directed October 30, 2024 12:00am 4 daily x 2 days, 3 daily x 2 days, 2 daily x 2 days, 1 daily x 6 days Complies with drug therapy Start: 10-14-2024 End: 10-30-2024 take 2 tablets by mouth once daily Prednisone 20 mg tablet Discontinued 40 MG PO Daily 6 October 14, 2024 12:00am October 30, 2024 10:39am Start: 08-13-2024 End: 10-14-2024 take 4 tablets by mouth once daily, then take 3 tablets by mouth once daily, then take 2 tablets by mouth once daily, then take 1 tablet by mouth once daily Prednisone 10 mg tablet Discontinued 10 MG PO As Directed August 13, 2024 12:00am October 14, 2024 5:35pm 4 daily x 2 days, 3 daily x 2 days, 2 daily x 2 days, 1 daily x 6 days Start: 08-19-2023 End: 09-26-2023 take 2 tablets by mouth once daily Prednisone 20 mg tablet Discontinued 40 MG PO Daily 6 August 19, 2023 12:00am September 26, 2023 4:35pm Start: 08-19-2023 End: 09-26-2023 take 40 mg by mouth once daily Prednisone Discontinued 40 MG PO Daily 6 August 19, 2023 12:00am September 26, 2023 4:35pm Start: 08-18-2023 End: 08-20-2023 take 1 tablet by mouth once daily Prednisone 20 mg tablet Discontinued 20 MG PO Daily 3 August 18, 2023 12:00am August 20, 2023 8:16am allergy is fatigue per patient Start: 03-14-2022 take 2 tablets by mo [facility] once daily at mealtime predniSONE 20 MG 2 tablets with food or milk Orally Once a day for 5 days Mar, Active Start: 09-25-2021 take 1 tablet by rosemary every twelve hours predniSONE 20 MG 1 tablet Orally 2 times a day for 5 day(s) Sep, Active Completed/Discontinued Medications Medication Drug Class(es) Dates Sig (Normalized) Sig (Original) amoxicillin 875 mg / clavulanate 125 mg oral tablet (14 sources) Penicillin-class Antibacterial Start: 09-26-2023 End: 01-27-2024 take 1 tablet by mouth every twelve hours Amoxicillin-Pot Clavulanate 875-125 mg tablet Discontinued 1 TAB PO Every 12 hours 14 September 26, 2023 12:00am January 27, 2024 11:55am Start: 02-25-2023 take 1 tablet by rosemary th every twelve hours Amoxicillin-Pot Clavulanate 875-125 MG 1 tablet Orally every 12 hrs for 10 day(s) Feb, Active azithromycin 250 mg oral tablet (16 sources) Macrolide Antimicrobial Start: 05-15-2024 End: 06-17-2024 Azithromycin 250 mg tablet Discontinued 0 PO .COMPLEX May 15, 2024 1:00am June 17, 2024 2:04pm For 250 mg dose pack: take 500 mg today (day 1), then 250 mg for 4 days (days 2-5) PO Start: 03-21-2022 Azithromycin 2 50 MG as directed Orally 2 tabs po today, then 1 tab daily x 4 more days for 5 Apr, Active cyclobenzaprine hydrochloride 10 mg oral tablet (13 sources) Muscle Relaxant Start: 01-27-2024 End: 05-15-2024 take 1 tablet by mouth three times daily Cyclobenzaprine 10 mg tablet Discontinued 10 MG PO Three times daily January 27, 2024 1:00am May 15, 2024 2:37pm Start: 01-22-2024 take 1 tablet by rosemary th three times daily as needed for muscle spasms cyclobenzaprine 10 mg Tab 10 mg = 1 tab(s), Oral, TID, PRN for spasm, # 30 tab(s), Refills(s) 0, Pharmacy: [facility]/pharmacy #[id number], 20.7, cm, 01/22/24 10:20:00 EST, Height/Length Dosing, 117, kg, 01/22/24 10:20:00 EST, Weight Dosing Start Date: 01/22/24 Status: Ordered meloxicam 15 mg oral tablet (20 sources) Nonsteroidal Anti-inflammatory Drug Start: 03-30-2024 End: 10-14-2024 take 1 tablet by mouth once daily Meloxicam 15 mg tablet Discontinued 15 MG PO Daily May 15, 2024 2:44pm October 14, 2024 5:35pm Start: 08-20-2023 End: 09-26-2023 take 1 tablet by mouth once daily Meloxicam 15 mg tablet Discontinued 15 MG PO Daily August 20, 2023 12:00am September 26, 2023 4:41pm Start: 03-25-2023 End: 04-22-2023 take 1 tablet [...] days July, Not-Taking Medrol (Talon) Act yimi naproxen 500 mg oral tablet (13 sources) Nonsteroidal Anti-inflammatory Drug Start: 01-27-2024 End: 03-30-2024 take 1 tablet by mouth twice daily Naproxen 500 mg tablet Discontinued 500 MG PO Twice daily January 27, 2024 1:00am March 30, 2024 5:52pm Start: 01-22-2024 take 1 tablet by rosemary th twice daily Naprosyn 500 mg Tab 500 mg = 1 tab(s), Oral, BID, # 20 tab(s), Refills(s) 0, Pharmacy: [facility]/pharmacy #[id number], 20.7, cm, 01/22/24 10:20:00 EST, Height/Length Dosing, 117, kg, 01/22/24 10:20:00 EST, Weight Dosing Start Date: 01/22/24 Status: Ordered silver sulfADIAZINE 10 mg/ml topical cream (2 [...] Problem Date Documented Date Episodic/Chronic Allergic reactions (20 sources) Allergic contact dermatitis due to plants, except food; Translations: [Allergic contact dermatitis due to plants, except food] Onset: 09-25-2021 Resolved: 09-25-2021 Episodic Anxiety disorders (4 sources) Anxiety state; Translations: [Anxiety state, unspecified] Onset: 07-07-2015 Chronic Attention-deficit, conduct, and disruptive behavior disorders (4 sources) Attention deficit hyperactivity disorder; Translations: [Attention-deficit hyperactivity disorder, unspecified type] Onset: 12-29-2012 Chronic Chronic obstructive pulmonary disease and bronchiectasis (13 sources) Bronchitis; Translations: [Bronchitis, not specified as acute or chronic] 05-15-2024 Episodic Joint disorders and dislocations; trauma-related (2 sources) [...] Onset: 01-22-2024 Episodic Other nervous system disorders (20 sources) Chronic pain; Translations: [Other chronic pain] 03-30-2024 Chronic Other nervous system disorders (16 sources) Other chronic pain; Translations: [Other chronic pain] Onset: 11-27-2021 Resolved: 11-27-2021 Chronic Other non-traumatic [...] sinusitis, unspecified] Chronic Other upper respiratory infections (20 sources) Acute pharyngitis, unspecified; Translations: [Acute maxillary [...] disc disorders; other back problems (20 sources) Radiculopathy, lumbar region; Translations: [Thoracic and [...] Test Name Value Interpretation Reference Range Facility No Panel InformationOrdered By: Regina Darling on 07-07-2024 Quick Strep (POC) [facility] CT Spine Lumbar w/o Contrast on 01-22-2024 [...] MD Transcribed by: SAMANTHA Technologist: MARYJANE Gurrola [facility] ED Clinical Summaryon 2023 ED Clinical Summary ED Clinical Summary [place] [address] ED Clinical Summary Person Information Name: MOODY ARELLANO [facility] Age: 23 Years : 2000 Sex: Male Language: Bulgarian PCP: EVELIN HAQUE MD Marital Status: Visit [...] 01/22/2024 12:48:42 01/22/2024 12:48:42 01/22/2024 12:48:42 ADDRESS: [address] [place] [phone] PHYS DOC NOTES: MEDICAL INFORMATION: Prescriptions Given: New Medications [id number], [address] [place], [place] [id number], [phone] cyclobenzaprine (cyclobenzaprine 10 mg Tab) 1 Tablets By Mouth 3 times a day as needed for spasm. Refills: 0. naproxen (Naprosyn 500 mg Tab) 1 Tablets By Mouth 2 times a day. Refills: 0. PATIENT EDUCATION INFORMATION: Instructions: Muscle Strain; Acute Back Pain, Adult Follow up: With: Address: When: EVELIN HAQUE [address] [place] [address] Business (1) In 3 days 01/25/2024 Comments: Return to the emergency room if your pain gets worse, you develop bowel or bladder incontinence, numbness/tingling in the saddle/groin area, weakness in your leg or any new symptoms. DIAGNOSIS: 1:Lower back pain; 2:Muscle strain Normal [facility] ED Note-Physicianon 01-22-20 ED Note-Physician ED Note-Physician [...] and Complexity of Problems Differential Diagnosis: [] [facility] Data External documents reviewed: [] [...] spasm, # 30 tab(s), Refills(s) 0, Pharmacy: [facility]/pharmacy #[id number], 20.7, cm, 01/22/24 10:20:00 EST, Height/Length [...] BID, # 20 tab(s), Refills(s) 0, Pharmacy: [facility]/pharmacy #[id number], 20.7, cm, 01/22/24 10:20:00 EST, Height/Length [...] Condition Stab (more content not included)... Normal [facility] Comment on above: Result Comment: Elec tronically Signed By: Nino Manning, Pedrito Coates\.br\Date and Time Signed: 01/22/24 12:41 EST ED Patient Summaryon 024 ED Patient Summary ED Patient Summary [address] [address] Patient Discharge Instructions Person Information Name: MOODY ARELLANO Age: 23 Years Arrival Date: 01/22/2024 10:17:26 Discharge Diagnosis: 1:Lower back pain; 2:Muscle strain Primary Care Physician: EVELIN HAQUE MD Provider Information Primary Provider: Pedrito Oneill M.D. Advanced Small Brake Form Operator:None The exam and treatment you received in the Emergency Department were for an urgent problem and are not intended as complete care. It is important that you follow up with a doctor, nurse practitioner, or physician???s administrative assistant data entry for ongoing care. If your symptoms become worse or you do not improve as expected and you are unable to reach your usual health care provider, you should return to the Emergency Department. We are available 24 hours a day. MOODY ARELLANO has been given the following list of patient education materials, prescriptions and follow-up instructions: Follow-up Instructions: With: Address: When: EVELIN HAQUE [address] [place], [place] [id number] Business (1) In 3 days 01/25/2024 Comments: Return [...] opioids can be used to help relieve sxvfoctq-mu-nhonal pain and are often prescribed following a [...] Administration (www.fda.gov/Dr (more content not included)... Normal [facility] Pre-Arrival Noteon 4 Pre-Arrival Note Pre-Arrival Note Pre-Arrival Summary Name: , citizens Current Date: 01/22/2024 10:18:03 EST Gender: Male Date of : Age: 23 Pre-Arrival Type: EMS ETA: 01/22/2024 10:37:00 EST Primary Care Physician: Presenting Problem: back pain Pre-Arrival User: Maynor Charlton Referring Source: Location: [place] Completion Date/Time: 01/22/2024 10:07:00 [facility] Emergency Department Pre-Hospital Report Form Vital Signs: Pre-Hospital Report: Treatment in Route: Response to Treatment: Misc. Issues: Normal [facility] No Panel Informationon 04-22 Chela Infante 04/24/2023 [...] discussed. Consent was given by the patient. [facility] XR lumbar spine AP/LAT/FLX/E XTon 11-27-2021 XR lumbar spine AP/LAT/FLX/EXT [facility] [address] XRay Report Signed Patient: Moody Arellano MR#: [id number] : 2000 Acct:[id number] Age/Sex: 21 / M ADM Date: 11/27/21 Loc: XD Room: Type: [facility] Attending Dr: Darnell Goss MD Copies to: aDrnell Goss MD Ordering Provider: Darnell Goss MD [...] Sunita Lundy M.D.11/27/2021 9:03 PM Dictation Location: [place] [address] Transcribed By: [facility] 11/27/212102 Dictated By: Sunita Lundy MD 11/27/212100 Signed By: 11/27/212102 Normal [facility] CBC AUTO DIFFon 06-20-2021 BASO # 0.1 103/ul Normal 0.0-0.1 [facility] Comment on above: Performed By: #### C BC #### [facility] [address] [place] [address] [address] Ana Ortez Basophils/100 WBC (Bld) 0.8 % Normal 0.2-2.0 [facility] Comment on above: Performed By: #### C BC #### [facility] [address] [place] [address] Dr. Ana Ortez EO # 0.2 103/ul Normal 0.0-0.7 [facility] Comment on above: Performed By: #### C BC #### [facility] [address] [place] [address] Dr. Ana Ortez Eosinophils/100 WBC (Bld) 2.9 % Normal 0.9-7.0 [facility] Comment on above: Performed By: #### C BC #### [facility] [address] [place] [address] Dr. Ana Ortez Erythrocyte distribution width (RBC) [Ratio] 12.5 % Normal 11.0-15.0 [facility] Comment on above: Performed By: #### C BC #### [facility] [address] [place] [address] Dr. Ana Ortez Hematocrit (Bld) [Volume fraction] 43.2 % Normal 42.0-54.0 [facility] Comment on above: Performed By: #### C BC #### [facility] [address] [place] [address] Dr. Ana Ortez Hemoglobin (Bld) [Mass/Vol] 14.4 g/dL Normal 14.0-18.0 [facility] Comment on above: Performed By: #### C BC #### [facility] [address] [place] [address] Dr. Ana Ortez IG # 0.01 10e3/ul Normal 0.00-0.03 [facility] Comment on above: Performed By: #### C BC #### [facility] [address] [place] [address] Dr. Ana Ortez IG % 0.2 % Normal 0.0-0.5 [facility] Comment on above: Performed By: #### C BC #### [facility] [address] [place] [address] Dr. Ana Ortez LYMPH # 2.8 103/ul Normal 1.2-3.8 [facility] Comment on above: Performed By: #### C BC #### [facility] [address] [place] [address] Dr. Ana Ortez Lymphocytes/100 WBC (Bld) 46.5 % Normal 20.5-60.0 [facility] Comment on above: Performed By: #### C BC #### [facility] [address] [place] [address] Dr. Ana Ortez MANUAL DIFF REQ NO Normal [facility] Comment on above: Performed By: #### C BC #### [facility] [address] [place] [address] Dr. Ana Ortez MCH (RBC) [Entitic mass] 31.1 pg Normal 25.9-34.0 [facility] Comment on above: Performed By: #### C BC #### [facility] [address] [place] [address] Dr. Ana Ortez MCHC (RBC) [Mass/Vol] 33.3 g/dL Normal 29.9-35.2 [facility] Comment on above: Performed By: #### C BC #### [facility] [address] [place] [address] Dr. Ana Ortez MCV (RBC) [Entitic vol] 93.3 fL Normal 80.0-94.0 [facility] Comment on above: Performed By: #### C BC #### [facility] [address] [place] [address] Dr. Ana Ortez MONO # 0.4 103/ul Normal 0.3-0.8 [facility] Comment on above: Performed By: #### C BC #### [facility] [address] [place] [address] Dr. Ana Ortez Monocytes/100 WBC (Bld) 6.6 % Normal 1.7-12.0 [facility] Comment on above: Performed By: #### C BC #### [facility] [address] [place] [address] Dr. Ana Ortez NEUT # 2.6 103/ul Normal 1.4-6.5 [facility] Comment on above: Performed By: #### C BC #### [facility] [address] [place] [address] Dr. Ana Ortez Neutrophils/100 WBC (Bld) 43.0 % Normal 43.0-75.0 [facility] Comment on above: Performed By: #### C BC #### [facility] [address] [place] [address] Dr. Ana Ortez Platelet mean volume (Bld) [Entitic vol] 10.1 fL Normal 9.5-13.5 [facility] Comment on above: Performed By: #### C BC #### [facility] [address] [place] [address] Dr. Ana Ortez PLT 268 103/ul Normal 150-450 [facility] Comment on above: Performed By: #### C BC #### [facility] [address] [place] [address] Dr. Ana Ortez RBC 4.63 106/ul Critically low 4.70-6.10 [facility] Comment on above: Performed By: #### C BC #### [facility] [address] [place] [address] Dr. Ana Ortez WBC 5.9 103/ul Normal 4.0-11.0 [facility] Comment on above: Performed By: #### C BC #### [facility] [address] [place] [address] Dr. Ana Ortez FREE T4on 06-20-2021 Free T4 [Mass/Vol] 0.73 ng/dL Critically low 0.78-2.19 [facility] Comment on above: Performed By: #### F T4 #### [facility] [address] [place] [address] Dr. Ana Ortez PROF CHEM 8 (BAS METB)on Anion gap [Moles/Vol] 12.6 mmol/L Normal [facility] Comment on above: Performed By: #### B MP, TSH #### [facility] [address] [place] [address] Dr. Ana Ortez Calcium [Mass/Vol] 8.8 mg/dL Normal 8.5-10.1 [facility] Comment on above: Performed By: #### B MP, TSH #### [facility] [address] [place] [address] [address] Ana Ortez Chloride [Moles/Vol] 105 mmol/L Normal 98-107 [facility] Comment on above: Performed By: #### B MP, TSH #### [facility] [address] [place] [address] Dr. Ana Ortez CO2 [Moles/Vol] 27.4 mmol/L Normal 22.0-30.0 [facility] Comment on above: Performed By: #### B MP, TSH #### [facility] [address] [place] [address] Dr. Ana Ortez Creatinine [Mass/Vol] 0.99 mg/dL Normal 0.66-1.25 [facility] Comment on above: Performed By: #### B COOKIE, TSH #### [facility] [address] [place] [address] Dr. Ana Ortez EGFR-AF VENEZUELAN >60 Normal >=60 [facility] Comment on above: Performed By: #### B COOKIE, TSH #### [facility] [address] [place] [address] Dr. Ana Ortez EGFR-NON AF VENEZUELAN >60 Normal >=60 [facility] Comment on above: Performed By: #### B COOKIE, TSH #### [facility] [address] [place] [address] Dr. Ana Ortez Glucose [Mass/Vol] 100 mg/dL Normal 74-[address] [facility] Comment on above: Performed By: #### B COOKIE, TSH #### [facility] [address] [place] [address] [address] Ana Ortez Potassium [Moles/Vol] 4.0 mmol/L Normal 3.4-5.0 [facility] Comment on above: Performed By: #### B COOKIE, TSH #### [facility] [address] [place] [address] Dr. Ana Ortez Sodium [Moles/Vol] 141 mmol/L Normal 137-[address] [facility] Comment on above: Performed By: #### B COOKIE, TSH #### [facility] [address] [place] [address] Dr. Ana Ortez Urea nitrogen [Mass/Vol] 12.0 mg/dL Normal 7.0-18.0 [facility] Comment on above: Performed By: #### B MP, TSH #### [facility] [address] [place] [address] [address] Ana Ortez Urea nitrogen/Creatinine [Mass ratio] 12.1 mg/mg Normal [facility] Comment on above: Performed By: #### B MP, TSH #### [facility] [address] [place] [address] [address] Ana Ortez TSHon 06-20-2021 TSH 1.361 uIU/mL Normal 0.470-4.680 [facility] Comment on above: Performed By: #### B MP, TSH #### [facility] [address] [place] [address] Dr. Ana Ortez TSH RANGE SEE BELOW Normal [facility] Comment on above: Result Comment: <0.3 4 UIU/ml HYPERTHYROID 0.34-5.60 UIU/ml EUTHYROID >5.60 UIU/ml HYPOTHYROID Performed By: #### B MP, TSH #### [facility] [address] [place] [address] Dr. Ana Ortez Vital Signs Date Time Vital Sign Value Performing Clinician Facility 10-30-2024 10: Body height 198.12 cm Evelin Haque MD Work Phone: [facility] 10-30-2024 10:040 Body mass index (BMI) [Ratio] 28.8 kg/m2 Evelin Haque MD Work Phone: [facility] 10-30-2024 10:17040 Body weight 113.39 kg Evelin Haque MD Work Phone: [facility] 10-30-2024 10:17040 Diastolic blood pressure 62 mm[Hg] Evelin Haque MD Work Phone: [facility] 10-30-2024 10:17040 Heart rate 69 /min Evelin Haque MD Work Phone: [facility] 10-30-2024 10:17-0400 Systolic blood pressure 96 mm[Hg] Evelin Haque MD Work Phone: [facility] 10-14-2024 17:38-0400 Body height 198.12 cm Evelin Haque MD Work Phone: [facility] 10-14-2024 17:38-0400 Body mass index (BMI) [Ratio] 28.3 kg/m2 Evelin Haque MD Work Phone: [facility] 10-14-2024 17:38-0400 Body temperature 98.4 [degF] Evelin Haque MD Work Phone: [facility] 10-14-2024 17:38-0400 Body weight 111.13 kg Evelin Haque MD Work Phone: [facility] 10-14-2024 17:38-0400 Diastolic blood pressure 75 mm[Hg] Evelin Haque MD Work Phone: [facility] 10-14-2024 17:38-0400 Heart rate 79 /min Evelin Haque MD Work Phone: [facility] 10-14-2024 17:38-0400 Respiratory rate 18 /min Evelin Haque MD Work Phone: [facility] 10-14-2024 17:38-0400 SaO2% (BldA) [Mass fraction] 97 % Evelin Haque MD Work Phone: [facility] 10-14-2024 17:38-0400 Systolic blood pressure 123 mm[Hg] Evelin Haque MD Work Phone: [facility] 08-17-2024 16:30-0400 Diastolic blood pressure 78 mm[Hg] [facility] 08-17-2024 16:30-0400 Heart rate 97 /min [facility] 08-17-2024 16:30-0400 Respiratory rate 81 /min [facility] 08-17-2024 16:30-0400 Systolic blood pressure 120 mm[Hg] [facility] 07-09-2024 16:08-0400 Body height 198.12 cm [facility] 07-09-2024 16:08-0400 Body mass index (BMI) [Ratio] 28.3 kg/m2 [facility] 07-09-2024 16:08-0400 Body weight 111.13 kg [facility] 07-09-2024 16:08-0400 Diastolic blood pressure 80 mm[Hg] [facility] 07-09-2024 16:08-0400 Heart rate 83 /min [facility] 07-09-2024 16:08-0400 SaO2% (BldA) [Mass fraction] 97 % [facility] 07-09-2024 16:08-0400 Systolic blood pressure 120 mm[Hg] [facility] 07-07-2024 09:31-0400 Body height 198.12 cm [facility] 07-07-2024 09:31-0400 Body mass index (BMI) [Ratio] 61.9 kg/m2 [facility] 07-07-2024 09:31-0400 Body temperature 96.5 [degF] [facility] 07-07-2024 09:31-0400 Body weight 243 kg [facility] 07-07-2024 09:31-0400 Diastolic blood pressure 66 mm[Hg] [facility] 07-07-2024 09:31-0400 Heart rate 76 /min [facility] 07-07-2024 09:31-0400 SaO2% (BldA) [Mass fraction] 95 % [facility] 07-07-2024 09:31-0400 Systolic blood pressure 118 mm[Hg] [facility] 06-17-2024 14:04-0400 Body weight 112.49 kg [facility] 06-17-2024 14:04-0400 Diastolic blood pressure 76 mm[Hg] [facility] 06-17-2024 14:04-0400 Heart rate 102 /min [facility] 06-17-2024 14:04-0400 SaO2% (BldA) [Mass fraction] 93 % [facility] 06-17-2024 14:04-0400 Systolic blood pressure 102 mm[Hg] [facility] 05-15-2024 13:31-0500 Body height 198.12 cm [facility] 05-15-2024 13:31-0500 Body mass index (BMI) [Ratio] 28.4 kg/m2 [facility] 05-15-2024 13:31-0500 Body temperature 98.5 [degF] [facility] 05-15-2024 13:31-0500 Body weight 111.58 kg [facility] 05-15-2024 13:31-0500 Diastolic blood pressure 78 mm[Hg] [facility] 05-15-2024 13:31-0500 Heart rate 65 /min [facility] 05-15-2024 13:31-0500 Systolic blood pressure 108 mm[Hg] [facility] 03-30-2024 16:32-0500 Body weight 118.38 kg [facility] 03-30-2024 16:32-0500 Heart rate 97 /min [facility] 03-30-2024 16:32-0500 SaO2% (BldA) [Mass fraction] 89 % [facility] 01-27-2024 11:02-0500 Body mass index (BMI) [Ratio] 29.1 kg/m2 [facility] 01-27-2024 11:02-0500 Diastolic blood pressure 79 mm[Hg] [facility] 01-27-2024 11:02-0500 Heart rate 94 /min [facility] 01-27-2024 11:02-0500 Systolic blood pressure 118 mm[Hg] [facility] 01-27-2024 09:44-0500 Body height 198.12 cm [facility] 01-27-2024 09:44-0500 Body weight 114.3 kg [facility] 01-22-2024 12:47-0500 Diastolic blood pressure 61 mm[Hg] [facility] 01-22-2024 12:47-0500 Heart rate 72 /min [facility] 01-22-2024 12:47-0500 Mean blood pressure 77 mm[Hg] [facility] 01-22-2024 12:47-0500 Respiratory rate 16 /min [facility] 01-22-2024 12:47-0500 SaO2% (BldA) [Mass fraction] 97 % [facility] 01-22-2024 12:47-0500 Systolic blood pressure 110 mm[Hg] [facility] 01-22-2024 12:00-0500 Diastolic blood pressure 67 mm[Hg] [facility] 01-22-2024 12:00-0500 Heart rate 62 /min [facility] 01-22-2024 12:00-0500 Mean blood pressure 83 mm[Hg] [facility] 01-22-2024 12:00-0500 Systolic blood pressure 115 mm[Hg] [facility] 01-22-2024 11:30-0500 Heart rate 59 /min [facility] 01-22-2024 11:30-0500 SaO2% (BldA) [Mass fraction] 95 % [facility] 01-22-2024 10:58-0500 Diastolic blood pressure 74 mm[Hg] [facility] 01-22-2024 10:58-0500 Mean blood pressure 89 mm[Hg] [facility] 01-22-2024 10:58-0500 Respiratory rate 18 /min [facility] 01-22-2024 10:58-0500 Systolic blood pressure 118 mm[Hg] [facility] 01-22-2024 10:18-0500 Body temperature 98.6 [degF] [facility] 01-22-2024 10:18-0500 Heart rate 76 /min [facility] 09-26-2023 16:38-0400 Body height 198.12 cm [facility] 09-26-2023 16:38-0400 Body mass index (BMI) [Ratio] 27.7 kg/m2 [facility] 09-26-2023 16:38-0400 Body temperature 98.9 [degF] [facility] 09-26-2023 16:38-0400 Body weight 108.86 kg [facility] 09-26-2023 16:38-0400 Diastolic blood pressure 65 mm[Hg] [facility] 09-26-2023 16:38-0400 Heart rate 90 /min [facility] 09-26-2023 16:38-0400 Respiratory rate 18 /min [facility] 09-26-2023 16:38-0400 SaO2% (BldA) [Mass fraction] 98 % [facility] 09-26-2023 16:38-0400 Systolic blood pressure 113 mm[Hg] [facility] 08-20-2023 08:17-0400 Body height 198.12 cm [facility] 08-20-2023 08:17-0400 Body mass index (BMI) [Ratio] 27.7 kg/m2 [facility] 08-20-2023 08:17-0400 Body weight 108.86 kg [facility] 08-20-2023 08:17-0400 Diastolic blood pressure 75 mm[Hg] [facility] 08-20-2023 08:17-0400 Heart rate 79 /min [facility] 08-20-2023 08:17-0400 Systolic blood pressure 113 mm[Hg] [facility] 08-18-2023 10:29-0400 Body height 198.12 cm [facility] 08-18-2023 10:29-0400 Body mass index (BMI) [Ratio] 27.6 kg/m2 [facility] 08-18-2023 10:29-0400 Body temperature 98.8 [degF] [facility] 08-18-2023 10:29-0400 Body weight 108.57 kg [facility] 08-18-2023 10:29-0400 Heart rate 64 /min [facility] 08-18-2023 10:29-0400 Respiratory rate 18 /min [facility] 08-18-2023 10:29-0400 SaO2% (BldA) [Mass fraction] 98 % [facility] 03-25-2023 14:45-0500 Body height 198.12 cm Evelin Haque Other [facility] 03-25-2023 14:45-0500 Body mass index (BMI) [Ratio] 26.92 kg/m2 Evelin Haque Other [facility] 03-25-2023 14:45-0500 Body weight 105.69 kg Evelin Haque Other [facility] 03-25-2023 14:45-0500 Diastolic blood pressure 65 mm[Hg] Evelin Haque Other [facility] 03-25-2023 14:45-0500 SaO2% (BldA) [Mass fraction] 97 % Evelin Haque Other [facility] 03-25-2023 14:45-0500 Systolic blood pressure 91 mm[Hg] Evelin Haque Other [facility] 02-25-2023 11:15-0500 Body height 198.12 cm Evelin Haque Other [facility] 02-25-2023 11:15-0500 Body mass index (BMI) [Ratio] 26.99 kg/m2 Evelin Haque Other [facility] 02-25-2023 11:15-0500 Body temperature 97.7 [degF] Evelin Haque Other [facility] 02-25-2023 11:15-0500 Body weight 105.96 kg Evelin Haque Other [facility] 02-25-2023 11:15-0500 Diastolic blood pressure 63 mm[Hg] Evelin Haque Other [facility] 02-25-2023 11:15-0500 Systolic blood pressure 98 mm[Hg] Evelin Haque Other [facility] 11-18-2022 09:20-0400 Body height 198.12 cm Mercedes Call Other [facility] 11-18-2022 09:20-0400 Body mass index (BMI) [Ratio] 27.18 kg/m2 Mercedes Call Other [facility] 11-18-2022 09:20-0400 Body temperature 98 [degF] Mercedes Call Other [facility] 11-18-2022 09:20-0400 Body weight 106.69 kg Mercedes Call Other [facility] 11-18-2022 09:20-0400 Diastolic blood pressure 62 mm[Hg] Mercedes Call Other [facility] 11-18-2022 09:20-0400 Respiratory rate 18 /min Mercedes Call Other [facility] 11-18-2022 09:20-0400 SaO2% (BldA) [Mass fraction] 92 % Mercedes Call Other [facility] 11-18-2022 09:20-0400 Systolic blood pressure 113 mm[Hg] Mercedes Call Other [facility] 08-20-2022 11:45-0400 Body height 198.12 cm Evelin Haque Other [facility] 08-20-2022 11:45-0400 Body mass index (BMI) [Ratio] 27.27 kg/m2 Evelin Haque Other [facility] 08-20-2022 11:45-0400 Body temperature 98 [degF] Evelin Haque Other [facility] 08-20-2022 11:45-0400 Body weight 107.05 kg Evelin Haque Other [facility] 08-20-2022 11:45-0400 Diastolic blood pressure 68 mm[Hg] Evelin Haque Other [facility] 08-20-2022 11:45-0400 Systolic blood pressure 104 mm[Hg] Evelin Haque Other [facility] 03-09-2022 17:10-0500 Body height 198.12 cm Mercedes Call Other [facility] 03-09-2022 17:10-0500 Body mass index (BMI) [Ratio] 26.58 kg/m2 Mercedes Jakub Other [facility] Other 03-09-2022 17:10-0500 Body temperature 98.1 [degF] Mercedes Jakub Other [facility] 03-09-2022 17:10-0500 Body weight 104.33 kg Mercedes Jakub Other [facility] Other 03-09-2022 17:10-0500 Diastolic blood pressure 66 mm[Hg] Mercedes Call Other [facility] 03-09-2022 17:10-0500 Respiratory rate 18 /min Mercedes Jakub Other [facility] 03-09-2022 17:10-0500 SaO2% (BldA) [Mass fraction] 98 % Mercedes Jakub Other [facility] 03-09-2022 17:10-0500 Systolic blood pressure 117 mm[Hg] Mercedes Call Other [facility] 01-01-2022 17:30-0400 Body height 198.12 cm Darnell Goss Other [facility] 01-01-2022 17:30-0400 Diastolic blood pressure 60 mm[Hg] Darnell Goss Other [facility] 01-01-2022 17:30-0400 SaO2% (BldA) [Mass fraction] 99 % Darnell Goss Other [facility] 01-01-2022 17:30-0400 Systolic blood pressure 110 mm[Hg] Darnell Goss Other [facility] 11-27-2021 16:00-0400 Body height 198.12 cm Darnell Goss Other [facility] 11-27-2021 16:00-0400 Body mass index (BMI) [Ratio] 25.65 kg/m2 Darnell Goss Other [facility] Other 11-27-2021 16:00-0400 Body weight 100.7 kg Darnell Goss Other [facility] 11-27-2021 16:00-0400 Diastolic blood pressure 60 mm[Hg] Darnell Goss Other [facility] Other 11-27-2021 16:00-0400 SaO2% (BldA) [Mass fraction] 97 % Darnell Goss Other [facility] Other 11-27-2021 16:00-0400 Systolic blood pressure 110 mm[Hg] Darnell Goss Other [facility] 09-25-2021 10:20-0400 Body height 198.12 cm Julienne Rody Other [facility] Other 09-25-2021 10:20-0400 Body mass index (BMI) [Ratio] 23.11 kg/m2 Julienne Rody Other [facility] Other 09-25-2021 10:20-0400 Body temperature 98.2 [degF] Julienne Rody Other [facility] Other 09-25-2021 10:20-0400 Body weight 90.72 kg Julienne Rody Other [facility] Other 09-25-2021 10:20-0400 Diastolic blood pressure 60 mm[Hg] Julienne Rody Other [facility] Other 09-25-2021 10:20-0400 Respiratory rate 18 /min Julienne Rody Other [facility] Other 09-25-2021 10:20-0400 SaO2% (BldA) [Mass fraction] 99 % Julienne Fine Other [facility] Other 09-25-2021 10:20-0400 Systolic blood pressure 121 mm[Hg] Julienne Fine Other [facility] Other 09-09-2021 14:00-0400 Body height 198.12 cm Hannah Massey Other [facility] Other 09-09-2021 14:00-0400 Body mass index (BMI) [Ratio] 23.11 kg/m2 Hannah Carrilloault Other [facility] Other 09-09-2021 14:00-0400 Body temperature 98.8 [degF] Hannah Carrilloault Other [facility] Other 09-09-2021 14:00-0400 Body weight 90.72 kg Hannah Carrilloault Other [facility] Other 09-09-2021 14:00-0400 Diastolic blood pressure 80 mm[Hg] Hannah Bryson Other [facility] Other 09-09-2021 14:00-0400 Respiratory rate 18 /min Hannah Carrilloault Other [facility] Other 09-09-2021 14:00-0400 SaO2% (BldA) [Mass fraction] 98 % Hannah Carrilloault Other [facility] Other 09-09-2021 14:00-0400 Systolic blood pressure 130 mm[Hg] Hannah Bryson Other [facility] Other Encounters Encounter Date Encounter Type Care Provider Facility Start: 10-30-2024 End: 10-30-2024 ambulatory Evelin Haque MD Work Phone: [facility] Work Phone: Start: 10-30-2024 End: 10-30-2024 Patient encounter procedure Evelin Haque MD -[facility] Work Phone: Start: 10-14-2024 End: 10-14-2024 ambulatory Evelin Haque MD Work Phone: [facility] Work Phone: Start: 10-14-2024 End: 10-14-2024 Patient encounter procedure Nathalia York [facility] Work Phone: Start: 08-17-2024 End: 08-17-2024 ambulatory [facility] Work Phone: Start: 08-17-2024 End: 08-17-2024 Patient encounter procedure [facility] Physician [facility] Work Phone: Start: 07-16-2024 Non-patient / Non-visit [facility] Physician [facility] Work Phone: Start: 07-16-2024 End: 07-16-2024 ambulatory [facility] Work Phone: Start: 07-16-2024 End: 07-16-2024 Patient encounter procedure [facility] Physician [facility] Work Phone: Start: 07-09-2024 End: 07-09-2024 ambulatory [facility] Work Phone: Start: 07-09-2024 End: 07-09-2024 Patient encounter procedure [facility] Physician [facility] Work Phone: Start: 07-07-2024 End: 07-07-2024 ambulatory [facility] Work Phone: Start: 07-07-2024 End: 07-07-2024 Patient encounter procedure [facility] Physician [facility] Work Phone: Start: 07-02-2024 End: 07-02-2024 ambulatory [facility] Work Phone: Start: 07-02-2024 End: 07-02-2024 Patient encounter procedure [facility] Physician [facility] Work Phone: Start: 07-02-2024 Non-patient / Non-visit [facility] Physician [facility] Work Phone: Start: 06-17-2024 End: 06-17-2024 ambulatory [facility] Work Phone: Start: 06-17-2024 End: 06-17-2024 Patient encounter procedure [facility] Physician [facility] Work Phone: Start: 05-15-2024 End: 05-15-2024 ambulatory [facility] Work Phone: Start: 05-15-2024 End: 05-15-2024 Patient encounter procedure [facility] Physician [facility] Work Phone: Start: 04-14-2024 End: 04-14-2024 ambulatory [facility] Work Phone: Start: 04-14-2024 End: 04-14-2024 Patient encounter procedure [facility] Physician [facility] Work Phone: Start: 03-30-2024 End: 03-30-2024 ambulatory [facility] Work Phone: Start: 03-30-2024 End: 03-30-2024 Patient encounter procedure [facility] Physician [facility] Work Phone: Start: 03-03-2024 Non-patient / Non-visit [facility] Physician [facility] Work Phone: Start: 01-27-2024 End: 01-27-2024 ambulatory [facility] Work Phone: Start: 01-27-2024 End: 01-27-2024 Patient encounter procedure [facility] Work Phone: Start: 01-23-2024 Non-patient / Non-visit [facility] Work Phone: Start: 01-22-2024 End: 01-22-2024 [facility] Start: 09-26-2023 End: 09-26-2023 ambulatory [facility] Work Phone: Start: 09-26-2023 End: 09-26-2023 Patient encounter procedure [facility] Work Phone: Start: 09-09-2023 End: 09-09-2023 ambulatory JOAQUÍN LEMUS Not Available Start: 08-20-2023 End: 08-20-2023 ambulatory [facility] Work Phone: Start: 08-20-2023 End: 08-20-2023 Patient encounter procedure [facility] Work Phone: Start: 08-18-2023 End: 08-18-2023 ambulatory [facility] Work Phone: Start: 08-18-2023 End: 08-18-2023 Patient encounter procedure [facility] Work Phone: Start: 04-22-2023 End: 04-22-2023 Office outpatient visit 25 minutes Jr. Yony Germain DO Work Phone: [facility] Comment on above: Internal derangement of right knee (Primary Dx) Start: 04-22-2023 End: 04-22-2023 ambulatory YONY BOUDREAUX Not Available Start: 04-01-2023 End: 04-01-2023 ambulatory JOAQUÍN LEMUS Not Available Start: 03-25-2023 End: 03-25-2023 ambulatory Evelin Haque Other [facility] Other Start: 03-25-2023 Office outpatient vi sit 15 minutes Evelin Haque [facility] Start: 02-25-2023 End: 02-25-2023 ambulatory Evelin Haque Other [facility] Other Start: 02-25-2023 Office outpatient vi sit 15 minutes Evelin Haque [facility] Start: 11-19-2022 End: 11-19-2022 ambulatory Evelin Haque Other [facility] Other Start: 11-19-2022 Telephone encounter Evelin Haque [facility] Start: 11-18-2022 End: 11-18-2022 ambulatory Mercedes Call Other [facility] Other Start: 11-18-2022 Office outpatient vi sit 15 minutes Mercedes Call [facility] Start: 08-20-2022 End: 08-20-2022 ambulatory Evelin Haque Other [facility] Other Start: 08-20-2022 Office outpatient vi sit 15 minutes Evelin Haque [facility] Start: 05-04-2022 (Televisit) Televisit Evelin Davis [facility] Start: 05-04-2022 End: 05-04-2022 ambulatory Evelin Haque Other [facility] Other Start: 03-14-2022 End: 03-14-2022 ambulatory Evelin Haque Other [facility] Other Start: 03-14-2022 Office outpatient vi sit 15 minutes Evelin Haque [facility] Start: 03-09-2022 End: 03-09-2022 ambulatory Mercedes Call Other [facility] Other Start: 03-09-2022 Office outpatient vi sit 15 minutes Mercedes Call [facility] Start: 01-01-2022 End: 01-01-2022 ambulatory Darnell Goss Other [facility] Other Start: 01-01-2022 Office outpatient vi sit 25 minutes Darnell Goss [facility] Start: 11-29-2021 End: 12-21-2021 ambulatory DARNELL GOSS Facility:[facility] Start: 11-27-2021 End: 11-27-2021 Patient encounter procedure MD Evelin Haque Work Phone: [facility] Start: 11-27-2021 End: 11-27-2021 ambulatory Darnell Goss [facility] Other Start: 11-27-2021 Office outpatient vi sit 25 minutes Darnell Goss [facility] Start: 09-25-2021 End: 09-25-2021 ambulatory Julienne Rody Other [facility] Other Start: 09-25-2021 Office outpatient vi sit 15 minutes Julienne Rody [facility] Start: 09-09-2021 End: 09-09-2021 ambulatory Hannah Massey Other [facility] Other Start: 09-09-2021 Office outpatient vi sit 15 minutes Hannah Massey [facility] Start: 06-26-2021 End: 06-27-2021 ambulatory JULIANO ROONEY Facility:[facility] Start: 06-20-2021 End: 06-21-[address] EVELIN HAQUE Facility:[facility] Procedures Date Procedure Procedure Detail Performing Clinician Start: 07-07-2024 Quick Strep (POC) Start: 04-22-2023 Arthrocentesis aspir &/inj major jt/bursa w/o us Jr. Yony Germain DO Work Phone: Start: 11-27-2021 X-ray of lumbar spin e, four views MD Evelin Haque Work Phone: Plan of Treatment Date Care Activity Detail Author Start: 05-27-2023 End: 05-27-2023 Patient encounter procedure 05/27/2023 8:00 AM EDT Office Visit [facility] [address] [place] [address] Jr. Yony Germain, DO [address] [place] [address] [facility] Patient Education Low back pain in adults [facility] Work Phone: Immunizations Immunization Date Immunization Notes Care Provider Fa cility 09-26-2023 tetanus toxoid, redu jed diphtheria toxoid, and acellular pertussis vaccine, adsorbed [facility] 08-25-2015 meningococcal oligosaccharide (groups A, C, Y and W-135) diphtheria toxoid conjugate vaccine (MCV4O) Mercedes Call Other [facility] NEGATED: Highlighted row has not occurred!11-19-2019 tetanus toxoid, reduced diphtheria toxoid, and acellular pertussis vaccine, adsorbed Pedrito Oneill [facility] Comment on above: Result Comment: pt r efused after education by this nurse Payers Date Payer Category Payer Worker's Compensation [id number] 2022 Unknown [employer] [id number] 2022-Present [address] [place] [address] [id number] 2022 Unknown [id number] 2021 Self-pay [id number] 1998 Unknown [id number] 3 1998 Unknown [id number] 3 1998 Unknown [id number] 3 1998 Unknown [id number] 59 1998 Unknown [id number] 59 1998 Unknown [id number] 59 1998 Unknown [id number] 59 1998 Unknown [id number] 7 1959 Unknown [id number] 1959 Unknown [id number] Unknown [id number] 1 Social History Date Type Detail Facility Unknown if ever smoked [facility] Other Start: 04-22-2023 Sex Assigned At F [facility] Start: 2000 Sex Assigned At Male F [facility] Start: 04-01-2023 Tobacco smoking status NHIS Smokes tobacco daily [facility] Start: 04-01-2023 Tobacco use and exposure Smokeless tobacco non-user [facility] Start: 04-22-2023 Alcohol intake Current drinke r of alcohol (finding) [facility] Start: 04-22-2023 History of Social function [facility] Start: 04-01-2023 Tobacco Comment Pt vapes [facility] Start: 04-01-2023 Alcohol Comment 12drinks/week [facility] Start: 2000 Sex Assigned At Not on file N [facility] Start: 08-18-2023 End: 08-20-2023 Tobacco smoking status NHIS Ex-smoker (finding) [facility] Tobacco Oral, Vaping [facility] Tobacco smoking status No Smoking Status Entered [facility] Start: 01-27-2024 End: 08-17-2024 Sex Male (finding) [facility] Functional Status Date Assessment Result Facility 01-22-2024 Functional Status N/A [facility] Clinical Notes 06-26-2021 to 08-17-2024 Note Date & Type Note Facility 08-17-2024 Evaluation note Diagnosis Onset Date Resolution Chronic pain acute August 17 4:24pm Radiculopathy, lumbar region acute August 17, 2024 4 :24pm Sacroiliitis acute August 17 4:24pm [facility] Work Phone: 1(806) 581-486306-09-2025 Evaluation note* Diagnosis Onset Date Resolution Status Admit Date Chronic pain acute August 17 4:24pm Radiculopathy, lumbar region acute August 17, 2024 4:24pm Sacroiliitis acute August 17 4:24pm Poison morro dermatitis acute Oct 5:34pm [facility] Work Phone: 1(184) 738-527804-09-2025 Evaluation note* Diagnosis Onset Date Resolution Status Admit Date Chronic pain acute June 17, 2 025 1:56pm Radiculopathy, lumbar region acute June 17, 2024 1:56pm Sacroiliitis acute June 17, 2 025 1:56pm Sore throat acute July 07, 2 025 9:27am Chronic pain acute July 09 3:56pm Radiculopathy, lumbar region acute July 09, 2024 3:56pm Sacroiliitis acute July 09 3:56pm Chronic pain acute August 17 4:24pm Radiculopathy, lumbar region acute August 17, 2024 4:24pm Sacroiliitis acute August 17 4:24pm [facility] Work Phone: 1(150) 701-443203-07-2025 Evaluation note* Diagnosis Onset Date Resolution Status Admit Date Bronchitis acute May 15 1:13pm Radiculopathy, lumbar region acute May 15, 2024 1:13pm Chronic pain acute June 17, 2 025 1:56pm Radiculopathy, lumbar region acute June 17, 2024 1:56pm Sacroiliitis acute June 17, 2 025 1:56pm [facility] Work Phone: 1(289) 445-409503-07-2025 Evaluation note* Diagnosis Onset Date Resolution Status Admit Date Bronchitis acute May 15 1:13pm Radiculopathy, lumbar region acute May 15, 2024 1:13pm Chronic pain acute June 17, 2 025 1:56pm Radiculopathy, lumbar region acute June 17, 2024 1:56pm Sacroiliitis acute June 17, 2 025 1:56pm Sore throat acute July 07, 2 025 9:27am Chronic pain acute July 09 3:56pm Radiculopathy, lumbar region acute July 09, 2024 3:56pm Sacroiliitis acute July 09 3:56pm [facility] Work Phone: 1(635) 648-501001-20-2025 Evaluation note* Diagnosis Onset Date Resolution Status Admit Date Chronic pain acute March 4:26pm Radiculopathy, lumbar region acute March 30, 2024 4:26pm Sacroiliitis acute March 4:26pm [facility] Work Phone: 1(583) 968-931501-20-2025 Evaluation note* Diagnosis Onset Date Resolution Status Admit Date Chronic pain acute March 4:26pm Radiculopathy, lumbar region acute March 30, 2024 4:26pm Sacroiliitis acute March 4:26pm Bronchitis acute May 15 1:13pm Radiculopathy, lumbar region acute May 15, 2024 1:13pm Chronic pain acute June 17, 2 025 1:56pm Radiculopathy, lumbar region acute June 17, 2024 1:56pm Sacroiliitis acute June 17, 2 025 1:56pm [facility] Work Phone: 1(450) 780-296511-18-2024 Evaluation note* Diagnosis Onset Date Resolution Status Admit Date Lumbar pain with radiation down right leg acute January 26, 2 024 10:34am Chronic pain acute March 4:26pm Radiculopathy, lumbar region acute March 30, 2024 4:26pm Sacroiliitis acute March 4:26pm [facility] Work Phone: [phone]) 651-127611-13-2024 Hospital Discharge instructions Patient Education 01/22/2024 12:48:43 Muscle Strain [...] is not too tight. General instructions Take bedp-dmk-cwlsvlo and prescription medicines only as told by [...] you need help quitting, ask your health careprovider. Ask your health care provider when it [...] provider. Document Revised: 05/15/2021 Document Reviewed: 05/15/2021 [facility] Patient Education 2023 [place] [employer]. 01/22/2024 12:48:43 Acute Back Pain, Adult Acute [...] home: Managing pain, stiffness, and swelling Take ptya-bpr-jvwkvlf and prescription medicines only as told by [...] told by your health care provider. Use theheat source that your health care provider recommends, [...] each day. Do not sit, drive, or vice president underwriting one place for more than 30 minutes [...] provider. Exercising helps your back heal faster andhelps prevent back injuries by keeping muscles strong [...] lying on your side with your knees slightlybent. If you lie on your back, put a pillow under your knees. Keep your head and neck in a straight line with your spine (neutral position) when using electronicequipment like smartphones or pads. To do this: [...] put less stress on your back. Take tnzq-rko-hvyasza and prescription medicines only as told by your health care provider, and apply heat or ice as told. This information is not intended to replace advice given to you by your health care provider. Make sure you discuss any questions you have with your health care provider. Document Revised: 05/19/2021 Document Reviewed: 05/19/2021 [facility] Patient Education 2023 [place] [employer]. Follow Up Care 01/22/2024 10:18:02 With:EVELIN HAQUE Address: [address] [place] [id number] Business (1) When:01/25/2024 12:36:11 Comments:Return to the emergency room if your pain gets worse, you develop bowel or bladder incontinence, numbness/tingling in the saddle/groin area, weakness in your leg or any new symptoms. [facility] 11-13-2024 Evaluation + Plan noteExtracted from: Title:ED Note Author:Nino Manning, Pedrito Bruce te:01/22/24 1. Lower back pain (M54.50: Low back pain, unspecified) 2. Muscle strain (T14.8XXA: Other injury of unspecified body region, initial encounter) Orders: cyclobenzaprine, 10 mg = 1 tab(s), Oral, TID, PRN for spasm, # 30 tab(s), Refills(s) 0, Pharmacy: [facility]/pharmacy #[id number], 20.7, cm, 01/22/24 10:20:00 EST, Height/Length [...] BID, # 20 tab(s), Refills(s) 0, [id number], 20.7, cm, 01/22/24 10:20:00 EST, Height/Length Dosing, 117, kg, 01/22/24 10:20:00 EST, Weight Dosing orphenadrine, 60 mg = 2 mL, Injection, IV Push, Once, Stop date 01/22/24 10:31:00 EST, STAT, Start date 01/22/24 10:31:00 EST, 01/22/24 10:31:[address] Spine Lumbar w/o Contrast [facility] 11-13-2024 NoteED Patient Education Note Orthopedics Muscle [...] not too tight. General instructions ??? Take rzfi-bvi-trxdhna and prescription medicines only as told by [...] provider. Document Revised: 05/15/2021 Document Reviewed: 05/15/2021 Elsevier Patient Education ? 2023 [employer] Acute Back Pain, A (more content not included)...[facility]02-12-2024 History of Present illness Narrative* Jr. Yony [...] ; HERE FOR MRI RESULTS 04/08/23 @ [facility] XRAYS, 04/01/23 IN CHANGE / EPIC MRI, 04/08/23 @ [facility] NO MDP / PREDNISONE NO CORTISONE INJ [...] patient. Ayanna Garrett MA documented in this encounterBoone [facility] [id number] Evaluation note* Encounter Date Diagnosis Assessment Notes Treatment Notes Treatment Clinical Notes Mar, Acute pain of right knee (ICD-10 - M25.561) [facility] Other 12-18-2023 Evaluation note* Encounter Date Diagnosis [...] verbalized understanding and agreement with treatment plan. [facility] Other 09-10-2023 Evaluation note* Encounter Date Diagnosis [...] understanding and is agreeable to treatment plan [facility] Other 06-12-2023 Evaluation note* Encounter Date Diagnosis [...] verbalized understanding and agreement with treatment plan. [facility] Other 02-24-2023 Evaluation note* Encounter Date Diagnosis Assessment Notes Treatment Notes Treatment Clinical Notes Apr, Acute non-recurrent maxillary sinusitis (ICD-10 - J01.00) We discussed that many of his symptoms do sound viral. Patient requests antibiotic as he states he cannot handle the nasal congestion. Continue kmyt-kqx-qaxpzuy medicines as needed. Call clinic if he does not improve. [facility] Other 01-04-2023 Evaluation note* Encounter Date Diagnosis [...] verbalizes understanding and agreement with treatment plan. [facility] Other 12-30-2022 Evaluation note* Encounter Date Diagnosis [...] understanding and is agreeable with treatment plan [facility] Other 10-24-2022 Evaluation note* Encounter Date Diagnosis [...] of the lumbar spine at this time. [facility] Other 09-19-2022 Evaluation note* Encounter Date Diagnosis [...] bilateral sacroiliac joint injection under fluoroscopic guidance. [facility] Other 07-18-2022 Evaluation note* Encounter Date Diagnosis Assessment Notes Treatment Notes Treatment Clinical Notes Sep, Poison morro dermatitis (ICD-10 - L23.7) Poison omrro allergy home care material was printed Drink plenty fluids, get plenty of rest. Take the prednisone as prescribed until gone. Continue to use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
== END 2024-11-05 19:38 | disposition home or self-care (01) ==
PROVIDERS: PCP Family Medicine; Visit Provider Family Medicine
DX: N50.89 Other specified disorders of the male genital organs (principal); N50.3 Cyst of epididymis
CPT/HCPCS: 76870